=== PATIENT | male | born 1945 | race Caucasian/White ===

== ENCOUNTER 2017-11-16 23:32 | Inpatient (IN) | payer OTHER, MEDICARE ==
[~2017-11-16] VITALS: Ht 172.7 cm; Wt 93.0 kg
[2017-11-16 23:35] VITALS: BP 138/78; PULSE 67; RESP 18; TEMP 98.4; O2SAT 97
[2017-11-16 23:40] VITALS: O2SAT 99
[2017-11-16] MEDS ORDERED: SODIUM CHLOR 0.9% 1000 ML INJ 1,000 ML IV ONE (23:43)
[2017-11-16 23:50] LABS: AUTOMATED NEUTROPHIL # 9.1 TH/MM3 (1.8-7.7); BASOPHIL # 0.1 TH/MM3 (0-0.2); BASOPHIL % 0.7 % (0.0-2.0); EOSINOPHIL # 0.2 TH/MM3 (0-0.4); EOSINOPHIL % 1.8 % (0.0-4.0); HEMATOCRIT 40.6 % (39.0-51.0); HEMOGLOBIN 14.2 GM/DL (13.0-17.0); LYMPH % 24.8 % (9.0-44.0); LYMPHOCYTE # 3.3 TH/MM3 (1.0-4.8); MEAN CELL VOLUME 92.2 FL (80.0-100.0); MEAN CORPUSCULAR HEMOGLOBIN 32.4 PG (27.0-34.0); MEAN CORPUSCULAR HGB CONC 35.1 % (32.0-36.0); MEAN PLATELET VOLUME 9.6 FL (7.0-11.0); MONOCYTE # 0.8 TH/MM3 (0-0.9); NEUT % 66.7 % (16.0-70.0); PLATELET COUNT 183 TH/MM3 (150-450); RED CELL DISTRIBUTION WIDTH 11.5 % (11.6-17.2); WHITE BLOOD COUNT 13.5 TH/MM3 (4.0-11.0)
--- NOTE | 2017-11-16 23:53 | RADRPT ---
EXAM DATE/TIME: 11/16/2017 23:34 [facility] COMPARISON: No previous studies available for comparison. INDICATIONS : Stroke Alert; left sided weakness and facial droop. RADIATION DOSE: 64.27 CTDIvol (mGy) MEDICAL HISTORY : Non-responsive. SURGICAL HISTORY : Non-responsive. ENCOUNTER: Initial ACUITY: 1 day PAIN SCALE: Non-responsive LOCATION: cranial TECHNIQUE: Multiple contiguous axial images were obtained of the head. Using automated exposure control and adj ustment of the mA and/or kV according to patient size, radiation dose was kept as low as reasonably a chievable to obtain optimal diagnostic quality images. DICOM format image data is available electro nically for review and comparison. FINDINGS: There is mild volume loss. There is encephalomalacia in the left parietal region having the appearanc e of a remote infarct. There are no signs of acute infarction, intracranial hemorrhage, or mass. CONCLUSION: Mild atrophy and remote left parietal infarct. This report was called to Dr. Hall at 11:51 PM on 2017. Jarvis Dewitt MD on November 16, 2017 at 23:50 Board Certified Radiologist. This report was verified electronically.
[2017-11-16 23:55] LABS: CHLORIDE 99 MEQ/L (98-107); SODIUM (NA) 133 MEQ/L (136-145)
[2017-11-16 23:57] LABS: CALCIUM 8.4 MG/DL (8.5-10.1)
[2017-11-16 23:58] LABS: BICARBONATE 28.9 MEQ/L (21.0-32.0); BLOOD UREA NITROGEN 19 MG/DL (7-18); GLUCOSE,RANDOM 263 MG/DL (74-106)
[2017-11-16] MEDS ORDERED: PROSTATE MED PO (23:59)
[2017-11-17] VITALS (18 sets, daily range): BP systolic 104–153; BP diastolic 55–90; PULSE 56–76; RESP 16–23; TEMP 97.6–98.8; O2SAT 95–99
[2017-11-17] LABS: INTERNATIONAL NORMALIZED RATIO 0.9 RATIO; PROTHROMBIN TIME - PATIENT 9.6 SEC (9.8-11.6)
[2017-11-17] MEDS ORDERED: ALTEPLASE DRIP 78.5 MG in SYRINGE/BAG 1 EA IV ONE
[2017-11-17] MEDS ORDERED: SODIUM CHLORIDE 0.9% 50 ML BAG IVF ONE
[2017-11-17] MEDS ORDERED: MISCELLANEOUS NURSING INFORMATION XX PRN
[2017-11-17] MEDS ORDERED: ALTEPLASE BOLUS 9 MG/9 ML SYR IV ONE
[2017-11-17 00:01] LABS: GLOMERULAR FILTRATION RATE 66 ML/MIN (>89)
[2017-11-17 00:06] LABS: TROPONIN I LESS THAN 0.02 NG/ML (0.02-0.05)
--- NOTE | 2017-11-17 00:20 | RADRPT ---
EXAM DATE/TIME: 11/16/2017 23:53 [facility] COMPARISON: No previous studies available for comparison. INDICATIONS : Stroke alert; left sided weakness, facial droop. IV CONTRAST: 75 cc Omnipaque 350 (iohexol) IV ; Cumulative dose for multiple exams. RADIATION DOSE: 42.25 CTDIvol (mGy) MEDICAL HISTORY : Non-responsive. SURGICAL HISTORY : Non-responsive. ENCOUNTER: Initial ACUITY: 1 day PAIN SCALE: Non-responsive LOCATION: cranial TECHNIQUE: Volumetric scanning was performed using a multi-row detector CT scanner. The data was post processed with a variety of visualization algorithms including full volume maximum intensity projection, multi -planar sliding thin slab reformation, curved planar reformation, and surface rendering techniques. Using automated exposure control and adjustment of the mA and/or kV according to patient size, radiat ion dose was kept as low as reasonably achievable to obtain optimal diagnostic quality images. DICO M format image data is available electronically for review and comparison. FINDINGS: There is abrupt cutoff of the contrast column within the right middle cerebral artery M1 segment seen best on axial image series 300 consistent with MCA occlusion. The anterior cerebral arteries, editorial intern al carotid arteries, basilar, vertebral arteries and left middle cerebral artery are patent. or igin of left posterior cerebral artery is noted. There is enlargement of the thyroid gland with multiple hypodense thyroid nodules identified incomple tely evaluated on this study. The left lobe demonstrates slight mass effect on the trachea. CONCLUSION: Right MCA occlusion. The findings were discussed with Dr. Samaniego, neurologist storage consultant at 12:17 AM on F 2017. Jarvis Dewitt MD on November 17, 2017 at 0:13 Board Certified Radiologist. This report was verified electronically.
--- NOTE | 2017-11-17 00:21 | PD ---
HPI Chief Complaint: Stroke Alert Time Seen by Provider: 23:43 Travel History International Travel<30 days: No Contact w/Intl Traveler<30days: No Traveled to known affect area: No History of Present Illness HPI 72-year-old male presents to the emergency department from home by EMS transport where reportedly 11 PM the noted for the first time sudden change in mentation speech and facial droop and shortly thereafter left upper extremity and left lower extremity weakness. was at the patient's side when he became weak on the left side and she assisted him to the floor and there was no injury. No seizure activity was witnessed. Patient since arrival to EMS continues to have mild confusion and some slurring of speech left facial droop and left upper extremity lower extremity weakness with no use of the left upper extremity and minimal use of the left lower extremity and rightward gaze. Patient with history of prostate issues on prostate medication takes no blood thinning medications has no other medical issues has had no surgeries no allergies and is visiting here from out of state. is currently not at bedside but is reportedly in route to the hospital. Patient was found to be normotensive en route with sinus rhythm on EMS EKG and monitored in sinus rhythm with room air O2 saturations 97%. Upon arrival to the emergency department blood pressure is 147/93 heart rate 70 monitored in sinus rhythm with regular heart sounds O2 saturation 97% on room air EMS reports blood sugar was 200. PFSH Past Medical History Narrative Medical Prostate issues; no surgery; alcohol use; nursing notes reviewed Social History Tobacco Use: No Allergies-Medications (Allergen,Severity, Reaction): Coded Allergies: No Known Allergies (Unverified , 11/17/17) Reported Meds & Prescriptions Reported Meds & Active Scripts Active Reported [Prostate Med] PO DAILY Review of Systems ROS Limitations: Speech Impaired (), Poor Historian, Other: Except as stated in HPI: all other systems reviewed are Neg General / Constitutional: No: Fever HENT: No: Headaches Cardiovascular: No: Chest Pain or Discomfort Gastrointestinal: No: Vomiting Musculoskeletal: No: Pain Neurologic: Positive: Weakness, Focal Abnormalities (Facial droop), Change in Mentation, Slurred Speech Hematologic/Lymphatic: No: Easy Bruising Physical Exam Narrative GENERAL: Well-developed well-nourished male in no acute respiratory distress; GCS 14 SKIN: Warm and dry. HEAD: Atraumatic. Normocephalic. EYES: Pupils equal and round. Extraocular muscles intact but primarily rightward gaze. No scleral icterus. No injection or drainage. ENT: No nasal bleeding or discharge. Mucous membranes pink and moist. NECK: Trachea midline. No JVD. CARDIOVASCULAR: Regular rate and rhythm. RESPIRATORY: No accessory muscle use. Clear to auscultation. Breath sounds equal bilaterally. GASTROINTESTINAL: Abdomen soft, non-tender, nondistended. Hepatic and splenic margins not palpable. MUSCULOSKELETAL: Extremities without clubbing, cyanosis, or edema. No obvious deformities. NEUROLOGICAL: Awake but mildly drowsy. No obvious cranial nerve deficits except left facial droop. Motor grossly within normal limits right upper extremity right lower extremity; left upper extremity flaccid left lower extremity minimal movement of extremity with attempt of left knee flexion and ankle flexion. Five out of 5 muscle strength in the right arm and leg; 1/5 RUE,3/ 5LLE. Mild slurring of speech able to say his name and date of . Data Data Last Documented VS Vital Signs Date Time Temp Pulse Resp B/P (MAP) Pulse Ox O2 Delivery O2 Flow Rate FiO2 11/17/17 00:30 68 18 134/84 (101) 98 11/17/17 00:15 Nasal Cannula 2.00 11/16/17 23:35 98.4 Orders Orders Cath For Specimen (11/16/17 23:43) Neuro Checks Q2HX12,Q4H (11/16/17 23:43) Nursing Bedside Swallow Assess .ONCE (11/16/17 23:43) Activity Bed Rest (11/16/17 23:43) Prothrombin Time / Inr (Pt) (11/16/17 23:43) Act Partial Throm Time (Ptt) (11/16/17 23:43) Complete Blood Count With Diff (11/16/17 23:43) Basic Metabolic Panel (Bmp) (11/16/17 23:43) Fibrinogen (11/16/17 23:43) Creatine Kinase (Cpk) (11/16/17 23:43) Troponin I (11/16/17 23:43) Ua Includes Microscopic (11/16/17 23:43) Drug Screen, Random Urine (11/16/17 23:43) Type And Screen (11/16/17 23:43) Ct Brain W/O Iv Contrast(Rout) (11/16/17 ) Cta Brain W Iv Contrast W 3d (11/16/17 23:43) Cta Neck W Iv Contrast W 3d (11/16/17 23:43) Electrocardiogram (11/16/17 ) Sodium Chlor 0.9% 1000 Ml Inj (Ns 1000 M (11/16/17 23:43) Blood Glucose (11/16/17 23:43) Ecg Monitoring (11/16/17 23:43) Iv Access Insert/Monitor (11/16/17 23:43) NPO (11/16/17 23:43) Oximetry (11/16/17 23:43) Resp Oxygen Nc Stroke (11/16/17 ) ^ Call Pharmacy (11/16/17 23:56) Nih Stroke Scale - Nihss .ONCE (11/16/17 23:56) Urinary Catheter Insert/Apply (11/16/17 23:56) Anticoagulant Alert (11/16/17 23:56) ^ Post Infusion Restrictions (11/16/17 23:56) ^ Medication Alert (11/16/17 23:56) Vital Signs (Adult) .As directed (11/16/17 23:56) Notify Dr: Blood Pressure (11/16/17 23:56) ^ Medication Alert (11/16/17 23:56) Alteplase Bolus (Activase Bolus) (11/17/17 00:00) Alteplase Drip (Activase Drip) (11/17/17 00:00) Sodium Chloride 0.9% Inj (Ns Inj) (11/17/17 00:00) Misc Nursing Information (11/17/17 00:00) Resp Oxygen Nc Stroke (11/16/17 ) Admit Order (Ed Use Only) (11/17/17 ) Fittings Finisher / Telemetry LUCÍA.Q8H (11/17/17 00:35) Activity Bed Rest (11/17/17 00:35) Notify Dr: Other (11/17/17 00:35) Consult Neurology (11/17/17 00:35) Labs Laboratory Tests Test 11/16/17 23:15 11/16/17 23:40 Free Thyroxine 1.00 NG/DL Free Triiodothyronine (T3) pg/dL 2.52 PG/ML Thyroid Stimulating Hormone 3rd Gen 5.620 uIU/ML White Blood Count 13.5 TH/MM3 Red Blood Count 4.40 MIL/MM3 Hemoglobin 14.2 GM/DL Hematocrit 40.6 % Mean Corpuscular Volume 92.2 FL Mean Corpuscular Hemoglobin 32.4 PG Mean Corpuscular Hemoglobin Concent 35.1 % Red Cell Distribution Width 11.5 % Platelet Count 183 TH/MM3 Mean Platelet Volume 9.6 FL Neutrophils (%) (Auto) 66.7 % Lymphocytes (%) (Auto) 24.8 % Monocytes (%) (Auto) 6.0 % Eosinophils (%) (Auto) 1.8 % Basophils (%) (Auto) 0.7 % Neutrophils # (Auto) 9.1 TH/MM3 Lymphocytes # (Auto) 3.3 TH/MM3 Monocytes # (Auto) 0.8 TH/MM3 Eosinophils # (Auto) 0.2 TH/MM3 Basophils # (Auto) 0.1 TH/MM3 CBC Comment DIFF FINAL Differential Comment Prothrombin Time 9.6 SEC Prothromb Time International Ratio 0.9 RATIO Activated Partial Thromboplast Time 21.7 SEC Fibrinogen 277 mg/dL Blood Urea Nitrogen 19 MG/DL Creatinine 1.10 MG/DL Random Glucose 263 MG/DL Calcium Level 8.4 MG/DL Sodium Level 133 MEQ/L Potassium Level 3.9 MEQ/L Chloride Level 99 MEQ/L Carbon Dioxide Level 28.9 MEQ/L Anion Gap 5 MEQ/L Estimat Glomerular Filtration Rate 66 ML/MIN Hemoglobin A1c 9.6 % Total Creatine Kinase 97 U/L Troponin I LESS THAN 0.02 NG/ML Triglycerides Level 581 MG/DL Cholesterol Level 246 MG/DL LDL Cholesterol MG/DL HDL Cholesterol 32.5 MG/DL Cholesterol/HDL Ratio 7.56 RATIO [facility] Medical Decision Making Medical Screen Exam Complete: Yes Emergency Medical Condition: Yes Medical Record Reviewed: Yes Interpretation(s) CBC & BMP Diagram 11/16/17 23:40 Calcium Level 8.4 L EKG normal sinus rhythm rate [address] elevation or injury pattern or ectopy noted artifact is present at baseline Last Impressions Neck CTA 11/16/17 2542 Signed Impressions: Service Date/Time: Thursday, November 16, 2017 23:53 - CONCLUSION: 1. Multinodular thyroid not mentioned above with thyroid enlargement, left greater than right and mild mass effect on the trachea. 2. 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 3. No evidence for hemodynamically significant stenosis of either internal carotid artery. 4. 5. The findings were discussed with Dr. Samaniego at 12: 6. 17 AM on November 17, 2017. Jarvis Dewitt MD Head CTA 11/16/17 2343 Signed Impressions: Service Date/Time: Thursday, November 16, 2017 23:53 - CONCLUSION: Right MCA occlusion. The findings were discussed with Dr. Samaniego, neurologist automation qa lead at 12:17 AM on November 17, 2017. Jarvis Dewitt MD Head CT 11/16/17 0000 Signed Impressions: Service Date/Time: Thursday, November 16, 2017 23:34 - CONCLUSION: Mild atrophy and remote left parietal infarct. This report was called to Dr. Hall at 11:51 PM on November 16, 2017. Jarvis Dewitt MD CBC & BMP Diagram 11/16/17 23:40 Calcium Level 8.4 L Vital Signs Date Time Temp Pulse Resp B/P (MAP) Pulse Ox O2 Delivery O2 Flow Rate FiO2 11/17/17 00:30 68 18 134/84 (101) 98 11/17/17 00:15 67 18 132/80 (97) 98 Nasal Cannula 2.00 11/17/17 00:00 66 18 136/80 (98) 97 Room Air 11/16/17 23:40 99 2.00 11/16/17 23:40 99 Nasal Cannula 2.00 11/16/17 23:35 98.4 67 18 138/78 (98) 97 11/16/17 23:35 67 97 Room Air 11/16/17 23:35 18 97 Room Air Differential Diagnosis Stroke alert, ICH, TIA Narrative Course Upon arrival to the emergency department taken directly on EMS stretcher to CT scanner transferred to CT table; NIHSS: 11; stat non contrast CT Brain performed neurologist notified prelimnary read by me no bleed rad reading pending and will notifiy Dr Coyle as soon as report resulted by radiologist; CTA brain and neck ordered to proceed stat At 11:[address] brain noncontrast reveals remote left parietal infarct no acute findings no bleed this was called to me by radiologist Dr. Dewitt and was conveyed to neurologist Dr. Samaniego who agrees patient should be offered TPA at 11 :59 PM patient was offered TPA and stated no that he does not want the medication and at 12:09 AM again was discussed in detail risks benefits of receiving versus not receiving TPA and again when offered TPA patient said no is at bedside and is talking to patient as she would like him to receive TPA. @ 12:15 patient reports he is at home @ 12:[address] Coyle reports MCA occlusion --is aware of patient and making decision causing delay in administration of the medication @ 12:21 reports she is making the decision to intervene for the patient due to his confusion and receptive v expressive aphasia; tPA ordered to be administered now signing consent aware of risks and benefit of medication and aware of plan to transfer to [facility] to [facility] and for interventional radiologist @ 12:[address] Coyle per Dr Dewitt (R) MCA M1 segment occlusion --- candidate for IR call placed to Dr Dewitt/Dr Coyle @ 12:41 Dr Davidson has spoken with Dr Coyle; call to me --to be notified upon EMS arrival; stat call placed to EMS and to [facility] ED MD @ 01:19AM EMS is here to transport ED to [facility] ED to IR; Dr Davidson notified ) EMS here @ 01:24 AM patient has left for [facility] Physician Communication Physician Communication discussed with Dr Coyle, discussed with Dr Dewitt; discussed with Dr Coburn; discussed with Dr Davidson; discussed with Dr Oliveira Diagnosis Primary Impression: Acute right MCA stroke Admitting Information Admitting Physician Requests: Admit Nury Hall MD Nov 17, 2017 00:21
--- NOTE | 2017-11-17 00:27 | RADRPT ---
EXAM DATE/TIME: 11/16/2017 23:53 [facility] COMPARISON: CTA BRAIN W 3D RECON, November 16, 2017, 23:53. CT BRAIN W/O CONTRAST, November 16, 2017, 23:34. INDICATIONS : Stroke alert; left sided weakness, facial droop. IV CONTRAST: 75 cc Omnipaque 350 (iohexol) IV ; Cumulative dose for multiple exams. RADIATION DOSE: 42.25 CTDIvol (mGy) ; Combined studies MEDICAL HISTORY : Non-responsive. SURGICAL HISTORY : Non-responsive. ENCOUNTER: Initial ACUITY: 1 day PAIN SCALE: Non-responsive LOCATION: cranial Elevated flow velocities and ICA/CCA ratios have been found to correlate with increased degrees of vessel stenosis, calculated as percentage of diameter relative to a normal segment of distal ICA/CCA. TECHNIQUE: Volumetric scanning was performed using a multirow detector CT scanner. The data was post processed with a variety of visualization algorithms including full-volume maximum intensity projection, multip lanar sliding thin-slab reformation, curved-planar reformation, and surface-rendering techniques. Us ing automated exposure control and adjustment of the mA and/or kV according to patient size, radiatio n dose was kept as low as reasonably achievable to obtain optimal diagnostic quality images. DICOM f ormat image data is available electronically for review and comparison. FINDINGS: AORTIC ARCH: There is a three-vessel origin of the great vessels from the aorta. No evidence of ostial narrowing. RIGHT CAROTID: The common carotid artery is intact. The carotid bulb has a normal configuration without ulceration o r narrowing. The internal carotid artery lumen is smooth without stenosis. The external carotid van ry is intact. Mild calcific plaquing at the carotid bulb. LEFT CAROTID: The common carotid artery is intact. The carotid bulb has a normal configuration without ulceration or narrowing. The internal carotid artery lumen is smooth without stenosis. The external carotid ar lauren is intact. Mild calcific plaquing at the carotid bulb. VERTEBRALS: The vertebral arteries have a symmetric diameter. No stenotic lesions are seen. The origin of the le ft vertebral artery is obscured by dense contrast opacification of the adjacent veins. CONCLUSION: 1. Multinodular thyroid not mentioned above with thyroid enlargement, left greater than right and mil d mass effect on the trachea. 2. 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 3. No evidence for hemodynamically significant stenosis of either internal carotid artery. 4. 5. The findings were discussed with Dr. Samaniego at 12: 6. 17 AM on November 17, 2017. Jarvis Dewitt MD on November 17, 2017 at 0:22 Board Certified Radiologist. This report was verified electronically.
[2017-11-17] MEDS ORDERED: IOHEXOL 350 MG/ML 10 ML VIAL (for RAD DIAG) IVCONTRAST ONE (00:59)
[2017-11-17 01:03] LABS: BILIRUBIN, URINE NEG (NEG); BLOOD, URINE NEG (NEG); GLUCOSE,URINE 1000 OR GREATER mg/dL (NEG); KETONE, URINE TRACE mg/dL (NEG); NITRITE,URINE NEG (NEG); URINE LEUKOCYTE ESTERASE NEG (NEG)
[2017-11-17 01:13] LABS: RBC, URINE 0-3 /hpf (0-3); SQUAMOUS EPITHELIAL CELL URINE 0-5 /hpf (0-5); URINE COLOR YELLOW (YELLW/STRAW); WBC, URINE 0-2 /hpf (0-5)
[2017-11-17] MEDS ORDERED: MIDAZOLAM HCL 2 MG/2 ML VIAL ONE (02:01)
[2017-11-17] MEDS ORDERED: HEPARIN SODIUM - IV 10,000 UNITS/10 ML VIAL ONE (02:23)
[2017-11-17] MEDS ORDERED: VERAPAMIL HCL 5 MG/2 ML VIAL ONE (02:23)
[2017-11-17] MEDS ORDERED: NITROGLYCERIN 2% OINT 1 GM PACKET ONE (02:23)
--- NOTE | 2017-11-17 03:23 | PD.RAD ---
Post Procedure Progress Note Pre Procedure Diagnosis: (1) Acute right MCA stroke Post Procedure Diagnosis: (1) Acute right MCA stroke Procedure Date: Nov 17, 2017 Supervising Radiologist: Jayce Watt Proceduralist/Assist: Sukumar Kim RT(R), RT Yun(R) Anesthesia: Local, Analgesia, Conscious Sedation Plan of Activity Patient to Unit: Critical Care Patient Condition: Fair See PACS Report for procedural detail/treatment Vascular-Arterial Procedure Procedure 1 Procedure Site: Cerebral (Right MCA) Procedure(s): Angiogram, Embolectomy Access Access Site(s): Right Femoral Artery Closure Site(s): Right vascular closure device (PerClose) Findings: Occlusion M1 segment on the right. Successful embolectomy with 2 passes of Penumbra 068 catheter Jayce Watt MD Nov 17, 2017 03:23
[2017-11-17] MEDS ORDERED: IODIXANOL 320 MG/ML 50 ML VIAL (for RAD SPEC) I-ARTERIAL ONE (03:34)
[2017-11-17] MEDS ORDERED: LACTULOSE SYRUP 20 GM/30 ML CUP PO PRN (04:30)
[2017-11-17] MEDS ORDERED: SODIUM CHLORIDE 0.9% FLUSH 10 ML FLUSH IV FLUSH PRN (04:30)
[2017-11-17] MEDS ORDERED: MAGNESIUM HYDROXIDE SUSP 30 ML CUP PO PRN (04:30)
[2017-11-17] MEDS: SODIUM CHLOR 0.9% 1000 ML INJ 1,000 ML IV SCH ×2 (04:30→17:52)
[2017-11-17] MEDS ORDERED: MISCELLANEOUS NURSING INFORMATION XX SCH (04:30)
[2017-11-17] MEDS ORDERED: RESP: ALBUTEROL 2.5 MG/3 ML NEB (PRN) INH (04:30)
[2017-11-17] MEDS ORDERED: BISACODYL 10 MG SUPP RECTAL PRN (04:30)
[2017-11-17] MEDS ORDERED: ONDANSETRON HCL 4 MG/2 ML VIAL IV PUSH PRN (04:30)
[2017-11-17] MEDS ORDERED: GLUCAGON 1 MG/ML VIAL OTHER PRN ×2 (04:30)
[2017-11-17] MEDS ORDERED: CHLORHEXIDINE GLUCONATE 2 % 1 PACK (2 CLOTHS) TOP PRN (04:30)
[2017-11-17] MEDS ORDERED: hydrALAZINE HCL 20 MG/ML VIAL IV PUSH PRN (04:30)
[2017-11-17] MEDS ORDERED: DEXTROSE 50% IN WATER 50 ML VIAL(D50) IV PUSH PRN (04:30)
[2017-11-17] MEDS ORDERED: LABETALOL HCL 100 MG/20 ML VIAL IV PUSH PRN (04:30)
[2017-11-17] MEDS ORDERED: SENNOSIDES 8.6 MG TAB PO PRN (04:30)
--- NOTE | 2017-11-17 04:45 | HHI.HP ---
HPI Service Critical Care Medicine Primary Care Physician Non-Staff Admission Diagnosis (R) MCA CVA Diagnosis: (1) Acute right MCA stroke Diagnosis: Principal (2) Received intravenous tissue plasminogen activator (tPA) in emergency department Diagnosis: Principal Travel History International Travel<30 Days: No Contact w/Intl Traveler <30 Da: No Traveled to Known Affected Are: No History of Present Illness 72 yo R hand dominant WM with PMH of obesity, BPH, and limited prior contact with medical care who presents to [facility] with confusion, aphasia, L hemiparesis. His estimates that symptoms occurred at 22:50-23:00 on . She states he was ambulating around the house and was "wandering" and "seemed confused". His contacted patient's brother who was staying in the house across the street and then he arrived and suggested she call [facility]. He had no noted seizure activity. He is not on anticoagulants or antiplatelet therapy. BP on arrival was 138/78. CT brain demonstrated atrophy and remote left parietal infarct. There was no acute infarct/hemorrhage/mass. Patient initially refused TPA however encouraged him to proceed with it. He seemed confused and there was question of whether he was capacitated for medical decision making so ultimately consented to TPA which was administered.. CTA brain demonstrated occlusion of M1 segment of R MCA. CTA carotids showed no significant stenosis. He was transferred from [facility] to [facility] where he underwent embolectomy by Dr. Watt. Review of Systems ROS Limitations: Clinical Condition Past Family Social History Allergies: Coded Allergies: No Known Allergies (Unverified , 11/17/17) Past Medical History Obesity BPH Past Surgical History Tonsillectomy during childhood Reported Medications His reports that he is "on something for his prostate". She is not certain whether this is prescription or vduk-zki-oyjszpe/supplement. Family History No reported family history of stroke. 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 He is visiting from [facility] Physical Exam Vital Signs Vital Signs Date Time Temp Pulse Resp B/P (MAP) Pulse Ox O2 Delivery O2 Flow Rate FiO2 11/17/17 01:30 72 18 98 Nasal Cannula 2.00 11/17/17 01:25 74 18 142/82 (102) 98 11/17/17 01:13 72 18 138/82 (100) 97 11/17/17 00:45 69 18 141/84 (103) 98 11/17/17 00:30 68 18 134/84 (101) 98 11/17/17 00:15 67 18 132/80 (97) 98 Nasal Cannula 2.00 11/17/17 00:00 66 18 136/80 (98) 97 Room Air 11/16/17 23:40 99 2.00 11/16/17 23:40 99 Nasal Cannula 2.00 11/16/17 23:35 98.4 67 18 138/78 (98) 97 11/16/17 23:35 67 97 Room Air 11/16/17 23:35 18 97 Room Air Physical Exam GENERAL: Well-nourished, well-developed elderly male who is laying flat in ISC bed. SKIN: Warm and dry. HEAD: Atraumatic. Normocephalic. EYES: Pupils equal and round, 3 mm and reactive bilaterally.. No scleral icterus. No injection or drainage. ENT: No nasal bleeding or discharge. Mucous membranes dry NECK: Trachea midline. No JVD. CARDIOVASCULAR: Regular rate and rhythm, sinus rhythm on the monitor. No murmur rub or gallop appreciated. RESPIRATORY: Breathing comfortably with no accessory muscle use. Clear to auscultation. On 2 L nasal cannula. GASTROINTESTINAL: Abdomen soft, non-tender, nondistended bowel sounds present. MUSCULOSKELETAL: Extremities without clubbing, cyanosis, or edema. No obvious deformities. NEUROLOGICAL: Sleepy but will arouse to voice. Dysarthric speech. Oriented to self, hospital, year. Left-sided gaze deficit. Left facial droop. Strength 5 out of 5 right upper extremity and right lower extremity. 1/5 L biceps otherwise flaccid. 1/5 L hip flexion and wiggles L toes slightly. 0/5 L ankle dorsi/plantar flexion. Babinski upgoing on left. Decreased sensation soft touch to left upper and left lower extremity. Laboratory Laboratory Tests Test 11/16/17 23:40 11/17/17 00:47 White Blood Count 13.5 Red Blood Count 4.40 Hemoglobin 14.2 Hematocrit 40.6 Mean Corpuscular Volume 92.2 Mean Corpuscular Hemoglobin 32.4 Mean Corpuscular Hemoglobin Concent 35.1 Red Cell Distribution Width 11.5 Platelet Count 183 Mean Platelet Volume 9.6 Neutrophils (%) (Auto) 66.7 Lymphocytes (%) (Auto) 24.8 Monocytes (%) (Auto) 6.0 Eosinophils (%) (Auto) 1.8 Basophils (%) (Auto) 0.7 Neutrophils # (Auto) 9.1 Lymphocytes # (Auto) 3.3 Monocytes # (Auto) 0.8 Eosinophils # (Auto) 0.2 Basophils # (Auto) 0.1 CBC Comment DIFF FINAL Differential Comment Prothrombin Time 9.6 Prothromb Time International Ratio 0.9 Activated Partial Thromboplast Time 21.7 Fibrinogen 277 Blood Urea Nitrogen 19 Creatinine 1.10 Random Glucose 263 Calcium Level 8.4 Sodium Level 133 Potassium Level 3.9 Chloride Level 99 Carbon Dioxide Level 28.9 Anion Gap 5 Estimat Glomerular Filtration Rate 66 Total Creatine Kinase 97 Troponin I LESS THAN 0.02 Urine Color YELLOW Urine Turbidity CLEAR Urine pH 6.0 Urine Specific [place] GREATER THAN 1.035 Urine Protein NEG Urine Glucose (UA) 1000 OR GREATER Urine Ketones TRACE Urine Occult Blood NEG Urine Nitrite NEG Urine Bilirubin NEG Urine Leukocyte Esterase NEG Urine RBC 0-3 Urine WBC 0-2 Urine Squamous Epithelial Cells 0-5 Urine Bacteria NONE Urine Opiates Screen NEG Urine Barbiturates Screen NEG Urine Amphetamines Screen NEG Urine Benzodiazepines Screen NEG Urine Cocaine Screen NEG Urine Cannabinoids Screen NEG Result Diagram: 11/16/17233911/16/172339 Caprini VTE Risk Assessment Caprini VTE Risk Assessment: Mod/High Risk (score >= 2) VTE Pharm Contraindication: Documented Caprini Risk Assessment Model Point Value = 1 Point Value = 2 Point Value = 3 Point Value = 5 Age 41-60 Minor surgery BMI > 25 kg/m2 Swollen legs Varicose veins or History of unexplained or recurrent spontaneous Oral contraceptives or hormone replacement Sepsis (< 1 month) Serious lung disease, including pneumonia (< 1 month) Abnormal pulmonary function Acute myocardial infarction Congestive heart failure (< 1 month) History of inflammatory bowel disease Medical patient at bed rest Age 61-74 Arthroscopic surgery Major open surgery (> 45 min) Laparoscopic surgery (> 45 min) Malignancy Confined to bed (> 72 hours) Immobilizing plaster cast Central venous access Age >= 75 History of VTE Family history of VTE Factor V Leiden Prothrombin [id number] Lupus anticoagulant Anticardiolipin antibodies Elevated serum homocysteine Heparin-induced thrombocytopenia Other congenital or acquired thrombophilia Stroke (< 1 month) Elective arthroplasty Hip, pelvis, or leg fracture Acute spinal cord injury (< 1 month) Prophylaxis Regimen Total Risk Factor Score Risk Level Prophylaxis Regimen 0-1 Low Early ambulation 2 Moderate Order ONE of the following: *Sequential Compression Device (SCD) *Heparin 5000 units SQ BID 3-4 Higher Order ONE of the following medications: *Heparin 5000 units SQ TID *Enoxaparin/Lovenox 40 mg SQ daily (WT < 150 kg, CrCl > 30 mL/min) *Enoxaparin/Lovenox 30 mg SQ daily (WT < 150 kg, CrCl > 10-29 mL/min) *Enoxaparin/Lovenox 30 mg SQ BID (WT < 150 kg, CrCl > 30 mL/min) AND/OR *Sequential Compression Device (SCD) 5 or more Highest Order ONE of the following medications: *Heparin 5000 units SQ TID (Preferred with Epidurals) *Enoxaparin/Lovenox 40 mg SQ daily (WT < 150 kg, CrCl > 30 mL/min) *Enoxaparin/Lovenox 30 mg SQ daily (WT < 150 kg, CrCl > 10-29 mL/min) *Enoxaparin/Lovenox 30 mg SQ BID (WT < 150 kg, CrCl > 30 mL/min) AND *Sequential Compression Device (SCD) Assessment and Plan Problem List: (1) Obesity (BMI 30-39.9) ICD Code: E66.9 - Obesity, unspecified Status: Chronic (2) Hyperglycemia ICD Code: R73.9 - Hyperglycemia, unspecified Status: Acute (3) Multinodular thyroid ICD Code: E04.2 - Nontoxic multinodular goiter Status: Chronic (4) Leukocytosis ICD Code: D72.829 - Elevated white blood cell count, unspecified Status: Acute (5) BPH (benign prostatic hyperplasia) ICD Code: N40.0 - Benign prostatic hyperplasia without lower urinary tract symptoms Status: Chronic (6) Acute right MCA stroke ICD Code: I63.511 - Cerebral infarction due to unspecified occlusion or stenosis of right middle cerebral artery Status: Acute (7) Received intravenous tissue plasminogen activator (tPA) in emergency department ICD Code: Z92.82 - Status post administration of tPA (rtPA) in a different facility within the last 24 hours prior to admission to current facility (8) Hyponatremia ICD Code: E87.1 - Hypo-osmolality and hyponatremia Assessment and Plan NEURO: Acute ischemic stroke right MCA stroke Received TPA at midnight 11/17. Status post right M1 embolectomy by Dr. Watt 11/17, (2 passes of Penumbra catheter) Antihypertensive management to maintain systolic blood pressure less than 180, diastolic blood pressure less than 105. Avoid anticoagulant or antiplatelet therapy for 24 hours Monitor telemetry. Follow-up 2-D echo, lipids, hemoglobin A1c CTA carotids negative for significant carotid occlusion. Speech therapy to evaluate swallow. PT/OT Neurology consult, Dr. Samaniego. RESP: Nasal cannula tolerate to maintain sat greater than 94% Will monitor for evidence of airway protection. Intubated if needed. Noted mild mass effect on the trachea due to thyroid goiter on CT scan. CV: Monitor hemodynamics Labetalol/hydralazine as needed for systolic blood pressure greater than 180, diastolic blood pressure greater than 105 Troponin negative GI: Obesity NPO. Speech therapy to evaluate swallow Famotidine for stress ulcer prophylaxis. FEN/RENAL: BPH Jaimes is in place. UA was not remarkable for significant hematuria. Now urine is lightly blood-tinged. ID: Leukocytosis, likely reactive Monitor for signs and symptoms of infection. UA negative for markers of infection HEME: Follow-up CBC after 24 hours Not on antiplatelet or anticoagulant therapy. Received TPA at midnight 2315 ENDO: Multi-nodular goiter CTA neck showed multinodular thyroid, left greater than right with mild mass effect on the trachea. Obtain TSH, free T3, free T4. Obtain thyroid ultrasound Acute hyperglycemia No known history of diabetes mellitus. Obtain hemoglobin A1c On to bedside glucose every 6 hours and initiate low-dose insulin sliding scale as indicated. PROPH: SCDs for DVT prophylaxis. Avoid pharmacologic DVT prophylaxis for 24 hours following systemic TPA. Famotidine IV for stress ulcer prophylaxis. ACCESS: Peripheral IV providing adequate access at this time. FULL CODE Patient and his and brother were updated at bedside Level III H&P Anni Coburn MD Nov 17, 2017 04:45
[2017-11-17] MEDS ORDERED: ACETAMINOPHEN 650 MG SUPP RECTAL PRN (05:30)
[2017-11-17] MEDS: INSULIN ASPART SUPPLEMENTAL SCALE SQ SCH ×4 (06:30→23:38)
--- NOTE | 2017-11-17 07:39 | MB ---
cc: JACKY GUAJARDO M.D. DATE OF CONSULTATION November 17, 2017 He is 71 years old, seen in neurological consultation. Case discussed with multiple physicians in the middle of night. He came today to the [facility] Emergency Room with stroke symptoms. Apparently the symptoms developed around 11:00 p.m.. He was felt to be a candidate for t-PA which was eventually given and his imaging studies showed a right middle cerebral artery occlusion, M1 segment. He was treated with intervention with a successful embolectomy. EXAMINATION The exam this morning shows the patient to be asleep but awakened with stimulation, eyes mostly closed, some gaze preference to the right. He is grossly oriented, stated the date as being which was evidently yesterday. He knows the place and has awareness of some of his neurological symptoms. There was some left-sided neglect and there is a visual field impairment on the left side. When he opened the eyes, the left eye shows some relative ptosis in comparison to the right. The pupils were about the same size. There is a spastic hemiparesis with increased reflexes on the left and left plantar extensor response. Overall the left side is probably 3/5 with increased tone as discussed. IMAGING STUDIES A CT angio head and neck, discussed above in part. The CT angio neck showed no significant stenosis. The CT brain was unremarkable. A remote left parietal infarct is noted. WBC was 13.5, hemoglobin 14.2, platelets 183. Chemistry with the glucose being 263. Sodium 133. Toxicology negative. ASSESSMENT Acute ischemic stroke right middle cerebral artery distribution with her right MCA occlusion. The patient was given t-PA and subsequently went through intervention with a Penumbra catheter which is described by Dr. Watt as a successful procedure. PLAN 1. Though he has already scheduled follow-up CT brain for 24 hours post t-PA, I will see if we can obtain an MRI brain today. 2. He apparently did not take any aspirin or blood thinners at home. We will we will probably start antiplatelets after 24 hours of t-PA, checking lipid profile as well. 3. SCDs in place. 4. Check echo. 5. Continue all threat monitoring analyst which is not showing any atrial fibrillation thus far. 6. Start stroke rehab. Thank you for asking us to assist in his care. I will follow him with you. MD CONSTANTINO Guardado/RENETTA /7:02 AM /7:11 AM
[2017-11-17] MEDS: DOCUSATE SODIUM 50 MG/SENNA 8.6 MG TAB PO SCH ×2 (09:00→20:34)
[2017-11-17] MEDS: FAMOTIDINE 20 MG/2 ML VIAL IV PUSH SCH ×2 (09:00→21:21)
[2017-11-17] MEDS: SODIUM CHLORIDE 0.9% FLUSH 10 ML FLUSH IV FLUSH SCH ×2 (09:00→21:00)
[2017-11-17] MEDS: FAMOTIDINE 20 MG TAB PO SCH ×2 (09:00→20:34)
--- NOTE | 2017-11-17 10:29 | RADRPT ---
EXAM DATE/TIME: 11/17/2017 09:50 [facility] COMPARISON: CTA BRAIN W 3D RECON, November 16, 2017, 23:53. CT BRAIN W/O CONTRAST, November 16, 2017, 23:34. INDICATIONS : CVA with thrombectomy last night. MEDICAL HISTORY : BPH SURGICAL HISTORY : Thrombectomy ENCOUNTER: Subsequent ACUITY: 1 day PAIN SCORE: 0/10 LOCATION: cranial TECHNIQUE: Multiplanar, multisequence MRI of the brain was performed without contrast. FINDINGS: A large infarction is seen involving the territory of the right MCA. This correlates to the findings seen on the CTA of the brain. There is restricted diffusion seen throughout the territory involving t he right frontal and temporal lobes. This extends into the mendez greater reaching the lateral wall o f the right lateral ventricle. There is blooming artifact seen on the gradient echo sequence scattere d throughout the territory in a heterogeneous fashion consistent with blood product. No midline shift . No significant mass effect. The remaining brain parenchyma is unremarkable.. CONCLUSION: 1. Acute infarction involving the right MCA territory which correlates to the finding on the CTA. No mass effect. There are scattered blood products throughout the infarct bed. Keshawn Dickson Jr., MD on November 17, 2017 at 10:21 Board Certified Radiologist. This report was verified electronically.
[2017-11-17 10:35] LABS: CHOLESTEROL 246 MG/DL (120-200); TRIGLYCERIDES 581 MG/DL (42-150)
[2017-11-17 10:36] LABS: CHOLESTEROL/ HDL RATIO 7.56 RATIO; HDL CHOLESTEROL 32.5 MG/DL (40.0-60.0)
--- NOTE | 2017-11-17 12:01 | RADRPT ---
EXAM DATE/TIME: 11/17/2017 11:21 [facility] COMPARISON: CTA CAROTID ARTERIES W 3D RECON, November 16, 2017, 23:53. INDICATIONS : Thyroid nodule. MEDICAL HISTORY : Thyroid nodule. SURGICAL HISTORY : None. ENCOUNTER: Initial ACUITY: 1 day PAIN SCORE: 0/10 LOCATION: Bilateral neck MEASUREMENTS: RIGHT LOBE: 3.7 x 2.5 x 2.9 cm LEFT LOBE: 4.0 x 2.2 x 2.9 cm FINDINGS: RIGHT LOBE: Dominant mixed echogenicity nodule in the midportion of the right lobe which measures 17 x 13 x 11 mm . LEFT LOBE: Dominant mixed echogenicity nodule along the lower aspect of the left lobe which measures 19 x 18 x 1 6 mm. ISTHMUS: Normal in size without focal abnormality. CONCLUSION: Bilateral thyroid nodules. If these lesions have not been previously evaluated, fine-needle aspiratio n biopsy would be recommended on an outpatient elective basis Collin Melissa MD on November 17, 2017 at 11:57 Board Certified Radiologist. This report was verified electronically.
[2017-11-17 13:33] LABS: FREE T3 2.52 PG/ML (2.18-3.98)
--- NOTE | 2017-11-17 14:36 | EKG ---
Date Performed: 11/17/2017 Time Performed: 00:13:27 PTAGE: 72 years EKG: Sinus rhythm NONSPECIFIC T-WAVE ABNORMALITY BORDERLINE ECG NO PREVIOUS TRACING DOCTOR: Eduardo Benavides Interpretating Date/Time 11/17/2017 14:30:59
--- NOTE | 2017-11-17 14:47 | EKG ---
Date Performed: 11/17/2017 Time Performed: 08:53:34 PTAGE: 72 years EKG: Sinus rhythm LOW QRS VOLTAGE IN EXTREMITY LEADS MODERATE T-WAVE ABNORMALITY, CONSIDER ANTEROLATERAL ISCHEMIA ABNO RMAL ECG PREVIOUS TRACING : 11/17/2017 00.13 Lateral T-wave changes are more prominent since the prior t racing, cannot rule out ischemia. DOCTOR: Eduardo Benavides Interpretating Date/Time 11/17/2017 14:38:41
--- NOTE | 2017-11-17 15:33 | ECHRPT ---
Indication: SOB CONCLUSIONS Mildly dilated left ventricle. Wall thickness is normal. The left ventricular systolic function is moderately reduced with an estimated ejection fraction in the range of 40-45%. [id number] mitral valve regurgitation. Mitral annular calcification is present. BP: / HR: Rhythm: MEASUREMENTS (Male / Female) Normal Values Technical Quality:Good 2D ECHO LV Diastolic Diameter PLAX 5.4 cm 4.2 - 5.9 / 3.9 - 5.3 cm LV Systolic Diameter PLAX 4.5 cm IVS Diastolic Thickness 1.1 cm 0.6 - 1.0 / 0.6 - 0.9 cm LVPW Diastolic Thickness 0.9 cm 0.6 - 1.0 / 0.6 - 0.9 cm LV Relative Wall Thickness 0.4 RV Internal Dim ED PLAX 2.1 cm LA Systolic Diameter LX 4.2 cm 3.0 - 4.0 / 2.7 - 3.8 cm DOPPLER Mitral E Point Velocity 110.0 cm/s Mitral A Point Velocity 32.9 cm/s Mitral E to A Ratio 3.3 TR Peak Velocity 210.0 cm/s TR Peak Gradient 17.6 mmHg FINDINGS LEFT VENTRICLE Mildly dilated left ventricle. Wall thickness is normal. The left ventricular systolic function is moderately reduced with an estimated ejection fraction in the range of 40-45%. RIGHT VENTRICLE Normal right ventricular size and systolic function. LEFT ATRIUM The left atrial size is normal. RIGHT ATRIUM The right atrial size is normal. ATRIAL SEPTUM Normal atrial septal thickness without atrial level shunting by limited color doppler interrogation. AORTA The aortic root and proximal ascending aorta are normal in size on limited imaging. MITRAL VALVE Mtty-rx-skuftzyb mitral valve regurgitation. Mitral annular calcification is present. AORTIC VALVE Trileaflet aortic valve. No aortic valve stenosis or regurgitation. TRICUSPID VALVE Structurally normal tricuspid valve. No tricuspid valve stenosis or regurgitation. PULMONARY VALVE The pulmonary valve is not well visualized. VESSELS The inferior vena cava is normal in size. PERICARDIUM No pericardial effusion. Dakota Tay MD, FACC, [facility] (Electronically Signed) Final Date:17 November 2017 15:32
[2017-11-17 16:18] LABS: HEMOGLOBIN A1C 9.6 % (4.3-6.0)
[2017-11-18] VITALS (14 sets, daily range): BP systolic 141–153; BP diastolic 68–93; PULSE 62–79; RESP 14–22; TEMP 98–98.7; O2SAT 94–100
--- NOTE | 2017-11-18 00:46 | RADRPT ---
EXAM DATE/TIME: 11/18/2017 00:20 [facility] COMPARISON: CT BRAIN W/O CONTRAST, November 16, 2017, 23:34. MRI BRAIN W/O CONTRAST, November 17, 2017, 9:50. INDICATIONS : 24 hour post TPA. RADIATION DOSE: 69.15 CTDIvol (mGy) MEDICAL HISTORY : Non-responsive. SURGICAL HISTORY : Intracranial throbectomy. ENCOUNTER: Subsequent ACUITY: 2 days PAIN SCALE: Non-responsive LOCATION: cranial TECHNIQUE: Multiple contiguous axial images were obtained of the head. Using automated exposure control and adj ustment of the mA and/or kV according to patient size, radiation dose was kept as low as reasonably a chievable to obtain optimal diagnostic quality images. DICOM format image data is available electro nically for review and comparison. FINDINGS: There is a large area of right MCA infarction not identified on the patient's prior CT examinati on from 2 days ago, however identified on the prior MRI which involves the MCA territory including th e temporal, part of the right frontal and parietal lobes in addition to basal ganglia with mild mass effect on the right lateral ventricle. There are areas of increased density involving the gyri and co uld potentially be normal gyri adjacent to significant lucency from evolving stroke, however slight d egree of subarachnoid hemorrhage within the right temporal lobe is difficult to exclude at this time. CONCLUSION: Evolving huge area of right MCA stroke and mild subarachnoid hemorrhage in right temporal lobe is dif ficult to exclude at this time, however it is only questionable. Lauryn Garsia MD on November 18, 2017 at 0:41 Board Certified Radiologist. This report was verified electronically.
[2017-11-18] MEDS: CHLORHEXIDINE GLUCONATE 2 % 1 PACK (2 CLOTHS) TOP SCH (04:00)
[2017-11-18 04:22] LABS: AUTOMATED NEUTROPHIL # 9.3 TH/MM3 (1.8-7.7); BASOPHIL # 0.1 TH/MM3 (0-0.2); BASOPHIL % 0.7 % (0.0-2.0); EOSINOPHIL # 0.1 TH/MM3 (0-0.4); EOSINOPHIL % 0.9 % (0.0-4.0); HEMATOCRIT 41.1 % (39.0-51.0); HEMOGLOBIN 14.4 GM/DL (13.0-17.0); LYMPH % 19.1 % (9.0-44.0); LYMPHOCYTE # 2.5 TH/MM3 (1.0-4.8); MEAN CELL VOLUME 94.4 FL (80.0-100.0); MEAN CORPUSCULAR HEMOGLOBIN 32.9 PG (27.0-34.0); MEAN CORPUSCULAR HGB CONC 34.9 % (32.0-36.0); MEAN PLATELET VOLUME 9.5 FL (7.0-11.0); MONO % 8.9 % (0.0-8.0); MONOCYTE # 1.2 TH/MM3 (0-0.9); NEUT % 70.4 % (16.0-70.0); PLATELET COUNT 109 TH/MM3 (150-450); RED BLOOD COUNT 4.36 MIL/MM3 (4.50-5.90); RED CELL DISTRIBUTION WIDTH 12.7 % (11.6-17.2); WHITE BLOOD COUNT 13.2 TH/MM3 (4.0-11.0)
[2017-11-18 04:44] LABS: INTERNATIONAL NORMALIZED RATIO 1.1 RATIO; PROTHROMBIN TIME - PATIENT 10.8 SEC (9.8-11.6)
[2017-11-18 04:48] LABS: BICARBONATE 26.2 MEQ/L (21.0-32.0); CALCIUM 8.3 MG/DL (8.5-10.1); CREATININE 0.77 MG/DL (0.60-1.30)
[2017-11-18] MEDS: INSULIN ASPART SUPPLEMENTAL SCALE SQ SCH ×3 (05:23→18:00)
--- NOTE | 2017-11-18 07:04 | HHI.PR ---
Review/Management Daily Summary 11/18 ct brain and mri brain seen left hemiparesis remains same awakens with stim and follows commands as yesterday spoke with RN no blood thinners for now watch for more cerebral edema and mass effect dr Eduardo covering weekend plan foor ct brain f/u tomorrow Subjective Active Medications Current Medications Medications (Trade) Dose Ordered Sig/Vin Route Start Time Stop Time Status Last Admin Sodium Chloride 1,000 ml @ 70 mls/hr [id number] IV 11/17/17 04:30 11/17/17 17:52 (NS Flush) 2 ml UNSCH PRN IV FLUSH 11/17/17 04:30 (NS Flush) 2 ml BID IV FLUSH 11/17/17 09:00 11/17/17 21:00 (Pepcid Inj) 20 mg Q12HR IV PUSH 11/17/17 09:00 11/17/17 21:21 (Pepcid) 20 mg Q12HR PO 11/17/17 09:00 (Zofran Inj) 4 mg Q6H PRN IV PUSH 11/17/17 04:30 (Albuterol Neb) 2.5 mg Q2HR NEB PRN INH 11/17/17 04:30 Miscellaneous Information 1 [id number] XX 11/17/17 04:30 (Chlorhexidine 2% Cloth) 3 pack Taper DAILY@04 TOP 11/18/17 04:00 11/14/18 03:59 (Chlorhexidine 2% Cloth) 3 pack UNSCH PRN TOP 11/17/17 04:30 (Estefany-Colace) 1 tab BID PO 11/17/17 09:00 (Milk Of Magnesia Liq) 30 ml Q12H PRN PO 11/17/17 04:30 (Senokot) 17.2 mg Q12H PRN PO 11/17/17 04:30 (Dulcolax Supp) 10 mg DAILY PRN RECTAL 11/17/17 04:30 (Lactulose Liq) 30 ml DAILY PRN PO 11/17/17 04:30 (Trandate Inj) 10 mg Q4H PRN IV PUSH 11/17/17 04:30 (Apresoline Inj) 10 mg Q4H PRN IV PUSH 11/17/17 04:30 (D50w (Vial) Inj) 50 ml UNSCH PRN IV PUSH 11/17/17 04:30 (Glucagon Inj) 1 mg UNSCH PRN OTHER 11/17/17 04:30 (NovoLOG SUPPLEMENTAL SCALE) 1 Q6H SQ 11/17/17 06:00 11/17/17 06:30 (Tylenol Supp) 650 mg Q4H PRN RECTAL 11/17/17 05:30 Allergies Allergies Coded Allergies No Known Allergies (Unverified11/17/17) Exam I&O / VS Vital Signs Date Time Temp Pulse Resp B/P (MAP) Pulse Ox O2 Delivery O2 Flow Rate FiO2 11/18/17 06:13 65 11/18/17 04:00 64 11/18/17 04:00 98.0 62 19 149/72 (97) 99 11/18/17 03:42 97 Nasal Cannula 2.00 11/18/17 02:03 74 11/18/17 00:32 94 Nasal Cannula 2.00 11/18/17 00:00 98.2 63 20 142/74 (96) 99 11/18/17 00:00 76 11/17/17 22:00 76 11/17/17 20:46 97 Nasal Cannula 2.00 11/17/17 20:00 98.0 73 23 153/90 (111) 95 11/17/17 20:00 75 11/17/17 19:00 98 Nasal Cannula 2.00 11/17/17 18:00 72 11/17/17 16:00 69 11/17/17 16:00 98.4 69 21 150/74 (99) 98 11/17/17 14:00 70 11/17/17 12:00 56 11/17/17 12:00 97.9 56 16 112/61 (78) 99 11/17/17 10:00 60 11/17/17 08:00 62 11/17/17 08:00 98.8 64 17 105/57 (73) 99 11/17/17 07:52 98 Nasal Cannula 2.00 11/17/17 07:45 Nasal Cannula 2.00 Objective Radiology Results Last [address] 11/18/17 0000 Signed Impressions: Service Date/Time: Saturday, November 18, 2017 00:20 - CONCLUSION: Evolving huge area of right MCA stroke and mild subarachnoid hemorrhage in right temporal lobe is difficult to exclude at this time, however it is only questionable. KBelkis Garsia MD Thyroid Ultrasound 11/17/17 0000 Signed Impressions: Service Date/Time: November 11:21 - CONCLUSION: Bilateral thyroid nodules. If these lesions have not been previously evaluated, fine-needle aspiration biopsy would be recommended on an outpatient elective basis Collin Melissa MD Brain MRI 11/17/17 0000 Signed Impressions: Service Date/Time: November 09:50 - CONCLUSION: 1. Acute infarction involving the right MCA territory which correlates to the finding on the CTA. No mass effect. There are scattered blood products throughout the infarct bed. Keshawn Dickson Jr., MD Neck CTA 11/16/17 2343 Signed Impressions: Service Date/Time: Thursday, November 16, 2017 23:53 - CONCLUSION: 1. Multinodular thyroid not mentioned above with thyroid enlargement, left greater than right and mild mass effect on the trachea. 2. 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 3. No evidence for hemodynamically significant stenosis of either internal carotid artery. 4. 5. The findings were discussed with Dr. Samaniego at 12: 6. 17 AM on November 17, 2017. Jarvis Dewitt MD Head CTA 11/16/17 2343 Signed Impressions: Service Date/Time: Thursday, November 16, 2017 23:53 - CONCLUSION: Right MCA occlusion. The findings were discussed with Dr. Samaniego, neurologist can conveyor feeder at 12:17 AM on November 17, 2017. Jarvis Dewitt MD Micro and Labs Laboratory Tests Test 11/18/17 03:53 11/18/17 04:14 White Blood Count 13.2 Red Blood Count 4.36 Hemoglobin 14.4 Hematocrit 41.1 Mean Corpuscular Volume 94.4 Mean Corpuscular Hemoglobin 32.9 Mean Corpuscular Hemoglobin Concent 34.9 Red Cell Distribution Width 12.7 Platelet Count 109 Mean Platelet Volume 9.5 Neutrophils (%) (Auto) 70.4 Lymphocytes (%) (Auto) 19.1 Monocytes (%) (Auto) 8.9 Eosinophils (%) (Auto) 0.9 Basophils (%) (Auto) 0.7 Neutrophils # (Auto) 9.3 Lymphocytes # (Auto) 2.5 Monocytes # (Auto) 1.2 Eosinophils # (Auto) 0.1 Basophils # (Auto) 0.1 CBC Comment DIFF FINAL Differential Comment Blood Urea Nitrogen 11 Creatinine 0.77 Random Glucose 200 Calcium Level 8.3 Sodium Level 136 Potassium Level 4.9 Chloride Level 103 Carbon Dioxide Level 26.2 Anion Gap 7 Estimat Glomerular Filtration Rate 99 Prothrombin Time 10.8 Prothromb Time International Ratio 1.1 Activated Partial Thromboplast Time 25.4 Fibrinogen 209 Bri Samaniego MD Nov 18, 2017 07:04
--- NOTE | 2017-11-18 07:51 | HHI.CCPN ---
Subjective Remarks/Hospital Course 72 yo R hand dominant WM with PMH of obesity, BPH, and limited prior contact with medical care who presents to [facility] [place] [facility] with confusion, aphasia, L hemiparesis. His estimates that symptoms occurred at 22:50-23:00 on . She states he was ambulating around the house and was "wandering" and "seemed confused". His contacted patient's brother who was staying in the house across the street and then he arrived and suggested she call [facility]. He had no noted seizure activity. He is not on anticoagulants or antiplatelet therapy. BP on arrival was 138/78. CT brain demonstrated atrophy and remote left parietal infarct. There was no acute infarct/hemorrhage/mass. Patient initially refused TPA however encouraged him to proceed with it. He seemed confused and there was question of whether he was capacitated for medical decision making so ultimately consented to TPA which was administered.. CTA brain demonstrated occlusion of M1 segment of R MCA. CTA carotids showed no significant stenosis. He was transferred from [facility] to [facility] where he underwent embolectomy by Dr. Watt. 11/18: Left sided weakness persists. CT with evolving right MCA territory infarction. Objective Vital Signs Date Time Temp Pulse Resp B/P (MAP) Pulse Ox O2 Delivery O2 Flow Rate FiO2 11/18/17 06:13 65 11/18/17 04:00 98.0 19 149/72 (97) 99 11/18/17 03:42 Nasal Cannula 2.00 Intake and Output 11/18/17 11/18/17 11/19/17 08:00 16:00 00:00 Output Total 500 ml Balance -500 ml Result Diagram: 11/18/17 0353 11/18/17 0353 Objective Remarks GENERAL: Well-nourished, elderly man. Alert. SKIN: Warm and dry. HEAD: Atraumatic. Normocephalic. EYES: Pupils equal and round, 32mm and reactive. No scleral icterus. No injection or drainage. ENT: No nasal bleeding or discharge. Mucous membranes moist. NECK: Trachea midline. Airway widely patent. CARDIOVASCULAR: Regular rate and rhythm, sinus rhythm on the monitor. No murmur rub or gallop appreciated. No JVD. RESPIRATORY: Breathing comfortably, no accessory muscle use. Clear, no adventitious sounds. GASTROINTESTINAL: Abdomen soft, non-tender, nondistended bowel sounds present. BS active. MUSCULOSKELETAL: Extremities without clubbing, cyanosis, or edema. No obvious deformities. NEUROLOGICAL: Sleepy but will arouse to voice. Speech clear. Oriented to self, location, year. Left facial droop. Strength 5 out of 5 right upper extremity and right lower extremity. 1/5 L biceps otherwise flaccid. 1/5 L hip flexion and wiggles L toes slightly. 0/5 L ankle dorsi/plantar flexion. Babinski upgoing on left. Decreased sensation soft touch to left upper and left lower extremity. A/P Problem List: (1) Obesity (BMI 30-39.9) ICD Code: E66.9 - Obesity, unspecified Status: Chronic (2) Hyperglycemia ICD Code: R73.9 - Hyperglycemia, unspecified Status: Acute (3) Multinodular thyroid ICD Code: E04.2 - Nontoxic multinodular goiter Status: Chronic (4) Leukocytosis ICD Code: D72.829 - Elevated white blood cell count, unspecified Status: Acute (5) BPH (benign prostatic hyperplasia) ICD Code: N40.0 - Benign prostatic hyperplasia without lower urinary tract symptoms Status: Chronic (6) Acute right MCA stroke ICD Code: I63.511 - Cerebral infarction due to unspecified occlusion or stenosis of right middle cerebral artery Status: Acute (7) Received intravenous tissue plasminogen activator (tPA) in emergency department ICD Code: Z92.82 - Status post administration of tPA (rtPA) in a different facility within the last 24 hours prior to admission to current facility Status: Acute (8) Hyponatremia ICD Code: E87.1 - Hypo-osmolality and hyponatremia Assessment and Plan NEURO: Acute ischemic stroke right MCA stroke Received TPA at midnight 11/17. Status post right M1 embolectomy by Dr. Watt 11/17, (2 passes of Penumbra catheter) Antihypertensive management to maintain systolic blood pressure less than 180, diastolic blood pressure less than 105. Avoid anticoagulant or antiplatelet therapy for 24 hours Monitor telemetry. Follow-up 2-D echo, lipids, hemoglobin A1c CTA carotids negative for significant carotid occlusion. Speech therapy to evaluate swallow. PT/OT Neurology consult, Dr. Samaniego. Dense deficit persists left side. RESP: Nasal cannula tolerate to maintain sat greater than 94% Will monitor for evidence of airway protection. Intubated if needed. Noted mild mass effect on the trachea due to thyroid goiter on CT scan. Controls airway well. CV: Monitor hemodynamics Labetalol/hydralazine as needed for systolic blood pressure greater than 180, diastolic blood pressure greater than 105 Troponin negative GI: Obesity NPO. Speech therapy to evaluate swallow again today 11/18 Famotidine for stress ulcer prophylaxis. FEN/RENAL: BPH Jaimes is in place. UA was not remarkable for significant hematuria. ID: Leukocytosis, likely reactive Monitor for signs and symptoms of infection. UA negative for markers of infection HEME: Follow-up CBC after 24 hours Not on antiplatelet or anticoagulant therapy. Received TPA at 2345 11/16 ENDO: Multi-nodular goiter CTA neck showed multinodular thyroid, left greater than right with mild mass effect on the trachea. Obtain thyroid ultrasound -> bilateral nodules. Acute hyperglycemia No known history of diabetes mellitus. Obtain hemoglobin A1c On to bedside glucose every 6 hours and initiate low-dose insulin sliding scale as indicated. PROPH: SCDs for DVT prophylaxis. Avoid pharmacologic DVT prophylaxis for 24 hours following systemic TPA. Famotidine IV for stress ulcer prophylaxis. ACCESS: Peripheral IV providing adequate access at this time. FULL CODE Overall impression: Persistent left sided deficit consistent with CT findings of large right hemisphere infarction. Continued non-dominant hemisphere swelling is expected; will try to minimize with hypertonic saline and low dose diuretic. Tim Echevarria MD Nov 18, 2017 07:51
[2017-11-18] MEDS ORDERED: FUROSEMIDE 20 MG/2 ML VIAL IV PUSH ONE (08:15)
[2017-11-18] MEDS: FAMOTIDINE 20 MG/2 ML VIAL IV PUSH SCH ×2 (08:43→21:39)
[2017-11-18] MEDS: SODIUM CHLORIDE 0.9% FLUSH 10 ML FLUSH IV FLUSH SCH ×2 (08:43→21:00)
[2017-11-18] MEDS: FAMOTIDINE 20 MG TAB PO SCH ×2 (08:43→21:00)
[2017-11-18] MEDS: DOCUSATE SODIUM 50 MG/SENNA 8.6 MG TAB PO SCH ×2 (08:43→21:39)
[2017-11-18] MEDS: SODIUM CHLORIDE 23.4% INJ 188 MEQ in SODIUM CHLOR 0.9% 1000 ML INJ 1,000 ML IV SCH (08:43)
--- NOTE | 2017-11-18 13:40 | RADRPT ---
EXAM DATE/TIME: 11/17/2017 02:03 [facility] COMPARISON: No previous studies available for comparison. INDICATIONS : Patient presents as stroke alert in need of cerebral angiogram with possible intracranial thrombectom y. MEDICAL HISTORY : Obesity BPH SURGICAL HISTORY : Tonsillectomy during childhood ENCOUNTER: Initial ACUITY: 1 day PAIN SCORE: Nonresponsive. LOCATION: N/A FLUORO TIME: 9.9 minutes IMAGE SERIES: 14 ACCESS SITE: Right Femoral artery SEDATION TIME: 50 minutes CONTRAST: 30 cc Visipaque (iodixanol) MEDICATION(S): 1.) 1 mg midazolam (Versed) IV 2.) 50 mcg fentanyl (Sublimaze) IV 3.) 3,000 units Heparin IV 4.) 1 Nitroglycerin paste IN Topical 5.) 10 mg Verapamil IART DEVICE(S): 1.) Right middle cerebral artery AHSAN 068 mechanical thrombectomy 2.) Right common femoral artery 6fr Perclose TIMELINE: Interventional team called: 01:17 am Interventional team arrived: 01:37 am Interventional team ready: 01:41 am Patient arrival: 01:44 am Groin puncture: 02:07 am Recanalization: 02:42 am PROCEDURE : 1. Ultrasound-guided puncture of the access site. 2. Angiography of the access site prior to closure device. 3. Conscious sedation with continuous EKG and Oximetry monitoring. 4. Percutaneous closure of the access site. 5. Angiography of temporal branch of the right MCA 6. Penumbra embolectomy, right MCA The risks, benefits and alternatives to the procedure were explained and verbal and written consent w as obtained. The site was prepped in sterile fashion. Full sterile technique was used, including ca p, mask, sterile gloves and gown and a large sterile sheet. Hand hygiene and 2% chlorhexidine and/or betadine/alcohol prep was utilized per protocol for cutaneous antisepsis. Sterile gel and sterile p robe cover were utilized for ultrasound guidance. The skin and subcutaneous tissues were infiltrated with local anesthetic solution. With ultrasound and fluoroscopic guidance the selected artery was punctured and a vascular sheath was placed. Angiography of the common femoral artery was performed for evaluation prior to percutaneous closure device placement. A JB2 catheter was used to select the brachiocephalic artery. Wire and catheter were then passed up i nto the common femoral. Contrast injection confirmed position. The wire and catheter were then manipu lated into the internal carotid. Glidewire was exchanged for a magic port to facilitate placement of the 90 cm Neuron sheath. Sheath t ip was positioned in the intrapetrous portion of the right internal carotid artery. Side-port was con nected to a verapamil pressure bag. Contrast injection confirmed occlusion of the right MCA short aft er its origin. Through the neuron sheath, the coaxial combination of the 0.068 penumbra catheter, Marksman catheter and agility wire were then advanced through the internal carotid up to the edge of the thrombus. The agility wire and Marksman catheter were then advanced through the occlusion and into a temporal branc h of the MCA trifurcation. Position was confirmed with positive contrast through the microcatheter. T he penumbra catheter was then advanced over the microcatheter and wire to the edge of the thrombus. T he catheter was then connected to suction and aspiration was maintained for approximately 120 seconds . The entire catheter was then withdrawn slowly while aspirating the side port of the neuron sheath. After completely removing the penumbra catheter and evacuating the sheath, repeat contrast injection showed marked improvement with some antegrade flow. There was still some partially occlusive thrombus in branch vessels of the distal MCA, just proximal to the trifurcation. Therefore, a second pass was made in a similar fashion as described above. Additional thrombus was removed with confucianist of bl ood flow to the MCA territory. Some thrombus persisted in small branch vessels but these are to small to extract. Hemostasis was obtained with the prescribed medicated closure device. Conscious sedation was perform ed with the prescribed dosages and duration as above in the presence of an independent trained radiol ogy nurse to assist in the monitoring of the patient. EKG and oximetry remained stable throughout th e procedure. CONCLUSION: Right MCA embolectomy as above. Jayce Watt MD on November 18, 2017 at 13:32 Board Certified Radiologist. This report was verified electronically.
[2017-11-19] VITALS (15 sets, daily range): BP systolic 116–171; BP diastolic 56–84; PULSE 55–97; RESP 13–27; TEMP 97.2–98.6; O2SAT 95–100
[2017-11-19] MEDS: CHLORHEXIDINE GLUCONATE 2 % 1 PACK (2 CLOTHS) TOP SCH (03:17)
--- NOTE | 2017-11-19 05:09 | RADRPT ---
EXAM DATE/TIME: 11/19/2017 04:59 [facility] COMPARISON: CT BRAIN W/O CONTRAST, November 18, 2017, 0:20. INDICATIONS : Follow up stroke; post thrombectomy. RADIATION DOSE: 43.37 CTDIvol (mGy) MEDICAL HISTORY : Non-responsive. SURGICAL HISTORY : Non-responsive. ENCOUNTER: Subsequent ACUITY: 3 days PAIN SCALE: Non-responsive LOCATION: cranial TECHNIQUE: Multiple contiguous axial images were obtained of the head. Using automated exposure control and adj ustment of the mA and/or kV according to patient size, radiation dose was kept as low as reasonably a chievable to obtain optimal diagnostic quality images. DICOM format image data is available electro nically for review and comparison. FINDINGS: Again noted is significant infarction in the right MCA territory no significant change with areas of increased density and woods white junction probably related to significant lucency of the adjacent inf arcted brain. Hemorrhage is not suspected at this time and there is no mass effect. CONCLUSION: No appreciable change in significant right MCA territory infarction. Lauryn Garsia MD on November 19, 2017 at 5:06 Board Certified Radiologist. This report was verified electronically.
[2017-11-19 05:32] LABS: BICARBONATE 24.7 MEQ/L (21.0-32.0); CALCIUM 8.5 MG/DL (8.5-10.1); CREATININE 0.75 MG/DL (0.60-1.30)
[2017-11-19] MEDS: SODIUM CHLORIDE 23.4% INJ 188 MEQ in SODIUM CHLOR 0.9% 1000 ML INJ 1,000 ML IV SCH (05:38)
[2017-11-19] MEDS: INSULIN ASPART SUPPLEMENTAL SCALE SQ SCH ×5 (05:41→23:45)
[2017-11-19] MEDS: DOCUSATE SODIUM 50 MG/SENNA 8.6 MG TAB PO SCH ×2 (09:00→21:00)
[2017-11-19] MEDS: FAMOTIDINE 20 MG TAB PO SCH (09:00)
[2017-11-19] MEDS: FAMOTIDINE 20 MG/2 ML VIAL IV PUSH SCH ×2 (10:12→21:00)
[2017-11-19] MEDS: SODIUM CHLORIDE 0.9% FLUSH 10 ML FLUSH IV FLUSH SCH ×2 (10:13→20:19)
--- NOTE | 2017-11-19 10:23 | HHI.CCPN ---
Subjective Remarks/Hospital Course 72 yo R hand dominant WM with PMH of obesity, BPH, and limited prior contact with medical care who presents to [facility] [place] [place] [facility] with confusion, aphasia, L hemiparesis. His estimates that symptoms occurred at 22:50-23:00 on . She states he was ambulating around the house and was "wandering" and "seemed confused". His contacted patient's brother who was staying in the house across the street and then he arrived and suggested she call [facility]. He had no noted seizure activity. He is not on anticoagulants or antiplatelet therapy. BP on arrival was 138/78. CT brain demonstrated atrophy and remote left parietal infarct. There was no acute infarct/hemorrhage/mass. Patient initially refused TPA however encouraged him to proceed with it. He seemed confused and there was question of whether he was capacitated for medical decision making so ultimately consented to TPA which was administered.. CTA brain demonstrated occlusion of M1 segment of R MCA. CTA carotids showed no significant stenosis. He was transferred from [facility] to [facility] where he underwent embolectomy by Dr. Watt. 11/18: Left sided weakness persists. CT with evolving right MCA territory infarction. 11/19: CT head with completed defect right parietal region, some expansion and shift. Protects airway, comfortable. New onset a-fib with rate well controlled around 110. Start amiodarone and try to convert. No anticoagulation. Objective Vital Signs Date Time Temp Pulse Resp B/P (MAP) Pulse Ox O2 Delivery O2 Flow Rate FiO2 11/19/17 08:30 99 21 11/19/17 06:07 Nasal Cannula 2.00 11/19/17 06:05 67 11/19/17 04:00 98.6 20 144/70 (94) Intake and Output 11/19/17 11/19/17 11/20/17 08:00 16:00 00:00 Output Total 500 ml Balance -500 ml Result Diagram: 11/18/17 0353 11/19/17 0446 Objective Remarks GENERAL: Well-nourished, elderly man. Alert. SKIN: Warm and dry. HEAD: Atraumatic. Normocephalic. EYES: Pupils equal and round, 2 mm and reactive. No scleral icterus. No injection or drainage. ENT: No nasal bleeding or discharge. Mucous membranes moist. NECK: Trachea midline. Airway widely patent. CARDIOVASCULAR: Regular rate and rhythm, sinus rhythm on the monitor. No murmur rub or gallop appreciated. No JVD. RESPIRATORY: Breathing comfortably, no accessory muscle use. Clear, no adventitious sounds. GASTROINTESTINAL: Abdomen soft, non-tender, nondistended bowel sounds present. BS active. MUSCULOSKELETAL: Extremities without clubbing, cyanosis, or edema. Well perfused. NEUROLOGICAL: Sleepy but will arouse to voice. Speech clear. Oriented to self, location, year. Left facial droop. Strength 5 out of 5 right upper extremity and right lower extremity. 1/5 L biceps otherwise flaccid. 1/5 L hip flexion and wiggles L toes slightly. 0/5 L ankle dorsi/plantar flexion. Decreased sensation soft touch to left upper and left lower extremity. A/P Problem List: (1) Acute right MCA stroke ICD Code: I63.511 - Cerebral infarction due to unspecified occlusion or stenosis of right middle cerebral artery Status: Acute (2) Received intravenous tissue plasminogen activator (tPA) in emergency department ICD Code: Z92.82 - Status post administration of tPA (rtPA) in a different facility within the last 24 hours prior to admission to current facility Status: Acute (3) Hyponatremia ICD Code: E87.1 - Hypo-osmolality and hyponatremia (4) Obesity (BMI 30-39.9) ICD Code: E66.9 - Obesity, unspecified Status: Chronic (5) Hyperglycemia ICD Code: R73.9 - Hyperglycemia, unspecified Status: Acute (6) Multinodular thyroid ICD Code: E04.2 - Nontoxic multinodular goiter Status: Chronic (7) Leukocytosis ICD Code: D72.829 - Elevated white blood cell count, unspecified Status: Acute (8) BPH (benign prostatic hyperplasia) ICD Code: N40.0 - Benign prostatic hyperplasia without lower urinary tract symptoms Status: Chronic Assessment and Plan NEURO: Acute ischemic stroke right MCA stroke Received TPA at midnight 11/17. Status post right M1 embolectomy by Dr. Watt 11/17, (2 passes of Penumbra catheter) Antihypertensive management to maintain systolic blood pressure less than 180, diastolic blood pressure less than 105. Avoid anticoagulant or antiplatelet therapy for 24 hours Monitor telemetry. Follow-up 2-D echo, lipids, hemoglobin A1c CTA carotids negative for significant carotid occlusion. Speech therapy to evaluate swallow. PT/OT Neurology consult, Dr. Samaniego. Dense deficit persists left side. Continue 2% saline for 24 hours. RESP: Nasal cannula tolerate to maintain sat greater than 94% Will monitor for evidence of airway protection. Intubated if needed. Noted mild mass effect on the trachea due to thyroid goiter on CT scan. Controls airway well. CV: Monitor hemodynamics Labetalol/hydralazine as needed for systolic blood pressure greater than 180, diastolic blood pressure greater than 105 Troponin negative New a-fib, rate controlled. Start amio to convert. Check lytes. GI: Obesity NPO. Speech therapy to evaluate swallow again today 11/18 Famotidine for stress ulcer prophylaxis. FEN/RENAL: BPH Jaimes is in place. UA was not remarkable for significant hematuria. ID: Leukocytosis, likely reactive Monitor for signs and symptoms of infection. UA negative for markers of infection HEME: Follow-up CBC after 24 hours Not on antiplatelet or anticoagulant therapy. Received TPA at 2345 11/16 ENDO: Multi-nodular goiter CTA neck showed multinodular thyroid, left greater than right with mild mass effect on the trachea. Obtain thyroid ultrasound -> bilateral nodules. Acute hyperglycemia No known history of diabetes mellitus. Obtain hemoglobin A1c On to bedside glucose every 6 hours and initiate low-dose insulin sliding scale as indicated. PROPH: SCDs for DVT prophylaxis. Avoid pharmacologic DVT prophylaxis for 24 hours following systemic TPA. Famotidine IV for stress ulcer prophylaxis. ACCESS: Peripheral IV providing adequate access at this time. FULL CODE Overall impression: Persistent left sided deficit consistent with CT findings of large right hemisphere infarction.Continued non-dominant hemisphere swelling is expected; will try to minimize with hypertonic saline and low dose diuretic. Transfer to floor OK after 2% saline completed. Tim Echevarria MD Nov 19, 2017 10:23
[2017-11-19] MEDS ORDERED: AMIODARONE INJ 450 MG in DEXTROSE 5% IN WATE(EXCEL) INJ 241 ML IV PRN ×2 (14:00)
[2017-11-19] MEDS ORDERED: AMIODARONE INJ 150 MG in DEXTROSE 5% IN WATER 100ML INJ 97 ML IV ONE ×2 (14:00)
[2017-11-19] MEDS: ARTIFICIAL TEARS OPTH SOLN 15 ML BTL EACH EYE SCH ×2 (18:18→23:00)
--- NOTE | 2017-11-19 19:37 | HHI.PR ---
Review/Management Diagnosis right MCA stroke s/p iv TPA and interventional thrombectomy new onset afib Plan continue current care Unable to anticoagulate due to component of subarachnoid hemorrhage Diagnosis/Plan: Daily Summary 11/18 ct brain and mri brain seen left hemiparesis remains same awakens with stim and follows commands as yesterday spoke with RN no blood thinners for now watch for more cerebral edema and mass effect dr Eduardo covering weekend plan foor ct brain f/u tomorrow Subjective Subjective Comments No acute events reported left hemiparesis without change Active Medications Current Medications Medications (Trade) Dose Ordered Sig/Vin Route Start Time Stop Time Status Last Admin (NS Flush) 2 ml UNSCH PRN IV FLUSH 11/17/17 04:30 (NS Flush) 2 ml BID IV FLUSH 11/17/17 09:00 11/19/17 10:13 (Pepcid Inj) 20 mg Q12HR IV PUSH 11/17/17 09:00 11/19/17 10:12 (Zofran Inj) 4 mg Q6H PRN IV PUSH 11/17/17 04:30 (Albuterol Neb) 2.5 mg Q2HR NEB PRN INH 11/17/17 04:30 Miscellaneous Information 1 Q361D XX 11/17/17 04:30 (Chlorhexidine 2% Cloth) 3 pack Taper DAILY@04 TOP 11/18/17 04:00 11/14/18 03:59 (Chlorhexidine 2% Cloth) 3 pack UNSCH PRN TOP 11/17/17 04:30 (Estefnay-Colace) 1 tab BID PO 11/17/17 09:00 11/18/17 21:39 (Milk Of Magnesia Liq) 30 ml Q12H PRN PO 11/17/17 04:30 (Senokot) 17.2 mg Q12H PRN PO 11/17/17 04:30 (Dulcolax Supp) 10 mg DAILY PRN RECTAL 11/17/17 04:30 (Lactulose Liq) 30 ml DAILY PRN PO 11/17/17 04:30 (Trandate Inj) 10 mg Q4H PRN IV PUSH 11/17/17 04:30 (Apresoline Inj) 10 mg Q4H PRN IV PUSH 11/17/17 04:30 (D50w (Vial) Inj) 50 ml UNSCH PRN IV PUSH 11/17/17 04:30 (Glucagon Inj) 1 mg UNSCH PRN OTHER 11/17/17 04:30 (NovoLOG SUPPLEMENTAL SCALE) 1 Q6H SQ 11/17/17 06:00 11/18/17 13:10 (Tylenol Supp) 650 mg Q4H PRN RECTAL 11/17/17 05:30 Sodium Chloride 188 meq/Sodium Chloride 1,047 ml @ 30 mls/hr Q24H IV 11/18/17 09:00 11/19/17 05:38 Amiodarone HCl 450 mg/Dextrose 250 ml @ 33.33 mls/ hr Q7H31M PRN IV 11/19/17 14:00 11/19/17 15:31 (Tears Naturale Opth Soln) 1 drop Q6H EACH EYE 11/19/17 17:00 11/19/17 18:18 Allergies Allergies Coded Allergies No Known Allergies (Unverified11/17/17) Exam I&O / VS 11/19/17 11/19/17 11/20/17 15:00 23:00 07:00 Intake Total 100 ml Output Total 1400 ml Balance -1300 ml Intake Oral 0 ml IV Total 100 ml Output Urine Total 1400 ml # Bowel Movements 0 Vital Signs Date Time Temp Pulse Resp B/P (MAP) Pulse Ox O2 Delivery O2 Flow Rate FiO2 11/19/17 18:00 92 11/19/17 18:00 95 126/60 11/19/17 16:00 97.2 95 13 116/56 (76) 97 11/19/17 16:00 94 11/19/17 15:31 90 137/77 11/19/17 14:24 117 142/83 11/19/17 14:00 94 11/19/17 14:00 94 11/19/17 12:00 74 11/19/17 12:00 97.2 74 27 150/83 (105) 97 11/19/17 10:00 65 11/19/17 08:30 99 21 11/19/17 08:00 97.8 75 24 171/84 (113) 95 11/19/17 08:00 74 11/19/17 06:07 95 Nasal Cannula 2.00 11/19/17 06:05 67 11/19/17 04:00 62 11/19/17 04:00 98.6 62 20 144/70 (94) 96 11/19/17 02:00 60 11/19/17 00:00 72 11/19/17 00:00 72 19 155/81 (105) 100 11/18/17 22:00 75 11/18/17 20:00 74 11/18/17 20:00 98.0 76 14 147/93 (111) 100 Exam Comments lethargic but arousable and follows simple commands CN---left UMN 7 palsey MOTOR 0/5 LUE and LLE moves right with normal strength Objective Micro and Labs Laboratory Tests Test 11/19/17 04:46 Blood Urea Nitrogen 13 Creatinine 0.75 Random Glucose 192 Calcium Level 8.5 Sodium Level 141 Potassium Level 3.8 Chloride Level 109 Carbon Dioxide Level 24.7 Anion Gap 7 Estimat Glomerular Filtration Rate 102 Jesse Eduardo MD PhD Nov 19, 2017 19:37
[2017-11-20] VITALS (14 sets, daily range): BP systolic 141–169; BP diastolic 67–89; PULSE 54–77; RESP 17–25; TEMP 97.4–98.4; O2SAT 96–100
[2017-11-20] MEDS: SODIUM CHLORIDE 23.4% INJ 188 MEQ in SODIUM CHLOR 0.9% 1000 ML INJ 1,000 ML IV SCH ×2 (02:14→21:24)
[2017-11-20] MEDS ORDERED: AMIODARONE INJ 450 MG in SODIUM CHLOR 0.9% (EXCEL) INJ 250 ML IV PRN (02:30)
[2017-11-20] MEDS: CHLORHEXIDINE GLUCONATE 2 % 1 PACK (2 CLOTHS) TOP SCH (03:04)
[2017-11-20] MEDS: ARTIFICIAL TEARS OPTH SOLN 15 ML BTL EACH EYE SCH ×4 (04:32→23:00)
[2017-11-20] MEDS: INSULIN ASPART SUPPLEMENTAL SCALE SQ SCH ×3 (06:00→18:00)
[2017-11-20 06:01] LABS: BICARBONATE 23.2 MEQ/L (21.0-32.0); CALCIUM 8.4 MG/DL (8.5-10.1); CREATININE 0.76 MG/DL (0.60-1.30)
[2017-11-20] MEDS: DOCUSATE SODIUM 50 MG/SENNA 8.6 MG TAB PO SCH ×2 (08:25→21:00)
[2017-11-20] MEDS: SODIUM CHLORIDE 0.9% FLUSH 10 ML FLUSH IV FLUSH SCH ×2 (08:25→21:00)
[2017-11-20] MEDS: FAMOTIDINE 20 MG/2 ML VIAL IV PUSH SCH ×2 (08:25→21:00)
[2017-11-20] MEDS ORDERED: POTASSIUM CHLOR 20 MEQ PREMIX 100 ML IV ONE (08:30)
--- NOTE | 2017-11-20 08:35 | HHI.CCPN ---
Subjective Remarks/Hospital Course 72 yo R hand dominant WM with PMH of obesity, BPH, and limited prior contact with medical care who presents to [facility] [facility] with confusion, aphasia, L hemiparesis. His estimates that symptoms occurred at 22:50-23:00 on . She states he was ambulating around the house and was "wandering" and "seemed confused". His contacted patient's brother who was staying in the house across the street and then he arrived and suggested she call [facility]. He had no noted seizure activity. He is not on anticoagulants or antiplatelet therapy. BP on arrival was 138/78. CT brain demonstrated atrophy and remote left parietal infarct. There was no acute infarct/hemorrhage/mass. Patient initially refused TPA however encouraged him to proceed with it. He seemed confused and there was question of whether he was capacitated for medical decision making so ultimately consented to TPA which was administered.. CTA brain demonstrated occlusion of M1 segment of R MCA. CTA carotids showed no significant stenosis. He was transferred from [facility] to [facility] where he underwent embolectomy by Dr. Watt. 11/18: Left sided weakness persists. CT with evolving right MCA territory infarction. 11/19: CT head with completed defect right parietal region, some expansion and shift. Protects airway, comfortable. New onset a-fib with rate well controlled around 110. Start amiodarone and try to convert. No anticoagulation. 11/20: Back in sinus rhythm on amiodarone, convert to 200 po daily. Failed swallow evaluation; retry today. Will place NG tomorrow if needed for feeding. Controls airway well. Objective Vital Signs Date Time Temp Pulse Resp B/P (MAP) Pulse Ox O2 Delivery O2 Flow Rate FiO2 11/20/17 06:18 66 11/20/17 04:15 98.4 25 151/72 (98) 98 11/19/17 21:12 21 11/19/17 06:07 Nasal Cannula 2.00 Intake and Output 11/20/17 11/20/17 11/21/17 08:00 16:00 00:00 Intake Total 250 ml Output Total 475 ml Balance -225 ml Result Diagram: 11/18/17 7961 11/20/17 8901 Objective Remarks GENERAL: Well-nourished, elderly man. Lethargic. SKIN: Warm and dry. HEAD: Atraumatic. Normocephalic. EYES: Pupils equal and round, 2 mm and reactive. ENT: No nasal bleeding or discharge. Mucous membranes and tongue dry - mouth breathing. NECK: Trachea midline. Airway widely patent. CARDIOVASCULAR: Regular rate and rhythm, sinus rhythm on the monitor. No murmur rub or gallop appreciated. No JVD. RESPIRATORY: Breathing comfortably, no accessory muscle use. Clear, no adventitious sounds. GASTROINTESTINAL: Abdomen soft, non-tender, nondistended bowel sounds present. BS active. MUSCULOSKELETAL: Extremities without clubbing, cyanosis, or edema. Well perfused. NEUROLOGICAL: Sleepy but will arouse to voice. Speech clear. Oriented to self, location, year. Left facial droop. Strength 5 out of 5 right upper extremity and right lower extremity. 1/5 left leg. Decreased sensation soft touch to left upper and left lower extremity. Sleeps with his eye lids open. A/P Problem List: (1) Acute right MCA stroke ICD Code: I63.511 - Cerebral infarction due to unspecified occlusion or stenosis of right middle cerebral artery Status: Acute (2) Received intravenous tissue plasminogen activator (tPA) in emergency department ICD Code: Z92.82 - Status post administration of tPA (rtPA) in a different facility within the last 24 hours prior to admission to current facility Status: Acute (3) Hyponatremia ICD Code: E87.1 - Hypo-osmolality and hyponatremia (4) Obesity (BMI 30-39.9) ICD Code: E66.9 - Obesity, unspecified Status: Chronic (5) Paroxysmal atrial fibrillation ICD Code: I48.0 - Paroxysmal atrial fibrillation (6) Hyperglycemia ICD Code: R73.9 - Hyperglycemia, unspecified Status: Acute (7) Multinodular thyroid ICD Code: E04.2 - Nontoxic multinodular goiter Status: Chronic (8) Leukocytosis ICD Code: D72.829 - Elevated white blood cell count, unspecified Status: Acute (9) BPH (benign prostatic hyperplasia) ICD Code: N40.0 - Benign prostatic hyperplasia without lower urinary tract symptoms Status: Chronic Assessment and Plan NEURO: Acute ischemic stroke right MCA stroke Received TPA at midnight 11/17. Status post right M1 embolectomy by Dr. Watt 11/17, (2 passes of Penumbra catheter) Antihypertensive management to maintain systolic blood pressure less than 180, diastolic blood pressure less than 105. Avoid anticoagulant or antiplatelet therapy for 24 hours Monitor telemetry. Follow-up 2-D echo, lipids, hemoglobin A1c CTA carotids negative for significant carotid occlusion. Speech therapy to evaluate swallow. PT/OT Neurology consult, Dr. Samaniego. Dense deficit persists left side. Continue 2% saline for 24 hours. RESP: Nasal cannula tolerate to maintain sat greater than 94% Will monitor for evidence of airway protection. Intubated if needed. Noted mild mass effect on the trachea due to thyroid goiter on CT scan. Controls airway well. CV: Monitor hemodynamics Labetalol/hydralazine as needed for systolic blood pressure greater than 180, diastolic blood pressure greater than 105 Troponin negative New a-fib -> converted with amiodarone. Check lytes. GI: Obesity NPO. Speech therapy to evaluate swallow again today 11/18 Famotidine for stress ulcer prophylaxis. FEN/RENAL: BPH Jaimes is in place. UA was not remarkable for significant hematuria. ID: Leukocytosis, likely reactive Monitor for signs and symptoms of infection. UA negative for markers of infection HEME: Follow-up CBC after 24 hours Not on antiplatelet or anticoagulant therapy. Received TPA at 2345 11/16 ENDO: Multi-nodular goiter CTA neck showed multinodular thyroid, left greater than right with mild mass effect on the trachea. Obtain thyroid ultrasound -> bilateral nodules. Acute hyperglycemia No known history of diabetes mellitus. Obtain hemoglobin A1c On to bedside glucose every 6 hours and initiate low-dose insulin sliding scale as indicated. PROPH: SCDs for DVT prophylaxis. Avoid pharmacologic DVT prophylaxis for 24 hours following systemic TPA. Famotidine IV for stress ulcer prophylaxis. ACCESS: Peripheral IV providing adequate access at this time. FULL CODE Overall impression: Persistent left sided deficit consistent with CT findings of large right hemisphere infarction. Continued non-dominant hemisphere swelling is expected; will try to minimize with hypertonic saline and low dose diuretic. Transfer to floor OK after 2% saline completed today. Tim Echevarria MD Nov 20, 2017 08:35
--- NOTE | 2017-11-20 12:27 | HHI.PR ---
Review/Management Diagnosis right MCA stroke s/p iv TPA and interventional thrombectomy new onset afib Plan continue current care Unable to anticoagulate due to component of subarachnoid hemorrhage Diagnosis/Plan: Daily Summary 11/18 ct brain and mri brain seen left hemiparesis remains same awakens with stim and follows commands as yesterday spoke with RN no blood thinners for now watch for more cerebral edema and mass effect dr Eduardo covering weekend plan foor ct brain f/u tomorrow Subjective Subjective Comments No acute events reported Active Medications Current Medications Medications (Trade) Dose Ordered Sig/Vin Route Start Time Stop Time Status Last Admin (NS Flush) 2 ml UNSCH PRN IV FLUSH 11/17/17 04:30 (NS Flush) 2 ml BID IV FLUSH 11/17/17 09:00 11/20/17 08:25 (Pepcid Inj) 20 mg Q12HR IV PUSH 11/17/17 09:00 11/20/17 08:25 (Zofran Inj) 4 mg Q6H PRN IV PUSH 11/17/17 04:30 (Albuterol Neb) 2.5 mg Q2HR NEB PRN INH 11/17/17 04:30 Miscellaneous Information 1 Q361D XX 11/17/17 04:30 (Chlorhexidine 2% Cloth) 3 pack Taper DAILY@04 TOP 11/18/17 04:00 11/14/18 03:59 (Chlorhexidine 2% Cloth) 3 pack UNSCH PRN TOP 11/17/17 04:30 (Estefany-Colace) 1 tab BID PO 11/17/17 09:00 11/19/17 21:00 (Milk Of Magnesia Liq) 30 ml Q12H PRN PO 11/17/17 04:30 (Senokot) 17.2 mg Q12H PRN PO 11/17/17 04:30 (Dulcolax Supp) 10 mg DAILY PRN RECTAL 11/17/17 04:30 (Lactulose Liq) 30 ml DAILY PRN PO 11/17/17 04:30 (Trandate Inj) 10 mg Q4H PRN IV PUSH 11/17/17 04:30 (Apresoline Inj) 10 mg Q4H PRN IV PUSH 11/17/17 04:30 (D50w (Vial) Inj) 50 ml UNSCH PRN IV PUSH 11/17/17 04:30 (Glucagon Inj) 1 mg UNSCH PRN OTHER 11/17/17 04:30 (NovoLOG SUPPLEMENTAL SCALE) 1 Q6H SQ 11/17/17 06:00 11/18/17 13:10 (Tylenol Supp) 650 mg Q4H PRN RECTAL 11/17/17 05:30 Sodium Chloride 188 meq/Sodium Chloride 1,047 ml @ 75 mls/hr [id number] IV 11/18/17 09:00 11/20/17 02:14 (Tears Naturale Opth Soln) 1 drop Q6H EACH EYE 11/19/17 17:00 11/20/17 11:11 (Cordarone) 200 mg DAILY PO 11/21/17 09:00 12/04/17 09:01 Allergies Allergies Coded Allergies No Known Allergies (Unverified11/17/17) Exam I&O / VS Vital Signs Date Time Temp Pulse Resp B/P (MAP) Pulse Ox O2 Delivery O2 Flow Rate FiO2 11/20/17 12:00 60 11/20/17 12:00 97.8 60 21 160/67 (98) 97 11/20/17 10:00 60 11/20/17 08:40 97 21 11/20/17 08:00 97.4 60 22 155/89 (111) 97 11/20/17 08:00 60 11/20/17 06:18 66 11/20/17 04:15 98.4 64 25 151/72 (98) 98 11/20/17 04:15 54 11/20/17 02:26 63 149/73 11/20/17 02:00 54 11/20/17 00:00 63 11/20/17 00:00 98.0 60 17 141/73 (95) 96 11/19/17 22:00 55 11/19/17 21:30 56 111/63 11/19/17 21:12 95 21 11/19/17 20:00 67 11/19/17 20:00 98.2 97 20 122/64 (83) 97 11/19/17 18:00 92 11/19/17 18:00 95 126/60 11/19/17 16:00 97.2 95 13 116/56 (76) 97 11/19/17 16:00 94 11/19/17 15:31 90 137/77 11/19/17 14:24 117 142/83 11/19/17 14:00 94 11/19/17 14:00 94 Exam Comments lethargic but arousable and follows simple commands CN---left UMN 7 palsey MOTOR 0/5 LUE and LLE moves right with normal strength Objective Micro and Labs Laboratory Tests Test 11/20/17 04:50 Blood Urea Nitrogen 15 Creatinine 0.76 Random Glucose 185 Calcium Level 8.4 Sodium Level 141 Potassium Level 3.9 Chloride Level 110 Carbon Dioxide Level 23.2 Anion Gap 8 Estimat Glomerular Filtration Rate 101 Jesse Eduardo MD PhD Nov 20, 2017 12:27
--- NOTE | 2017-11-20 15:36 | EKG ---
Date Performed: 11/19/2017 Time Performed: 13:21:34 PTAGE: 72 years EKG: Atrial fibrillation with rapid ventricular response. Poor R wave progression - probable nor mal variant Low QRS voltages in limb leads Since previous tracing, no significant change noted Abnorm al ECG PREVIOUS TRACING : 11/17/2017 08.53.34 DOCTOR: Dakota Tay Interpretating Date/Time 11/20/2017 15:36:02
[2017-11-21] VITALS (13 sets, daily range): BP systolic 101–163; BP diastolic 64–72; PULSE 53–95; RESP 16–23; TEMP 97.5–98.2; O2SAT 96–100
[2017-11-21] MEDS: CHLORHEXIDINE GLUCONATE 2 % 1 PACK (2 CLOTHS) TOP SCH (02:04)
[2017-11-21] MEDS: ARTIFICIAL TEARS OPTH SOLN 15 ML BTL EACH EYE SCH ×3 (05:00→17:00)
[2017-11-21 05:34] LABS: BICARBONATE 24.3 MEQ/L (21.0-32.0); CALCIUM 8.5 MG/DL (8.5-10.1); CREATININE 0.67 MG/DL (0.60-1.30); MAGNESIUM 2.5 MG/DL (1.5-2.5)
[2017-11-21] MEDS: INSULIN ASPART SUPPLEMENTAL SCALE SQ SCH ×4 (05:45→18:00)
[2017-11-21] MEDS: AMIODARONE 200 MG TAB PO SCH (09:00)
[2017-11-21] MEDS: DOCUSATE SODIUM 50 MG/SENNA 8.6 MG TAB PO SCH (09:00)
[2017-11-21] MEDS: SODIUM CHLOR 0.9% 1000 ML INJ 1,000 ML IV SCH (09:45)
[2017-11-21] MEDS: FAMOTIDINE 20 MG/2 ML VIAL IV PUSH SCH (09:46)
[2017-11-21] MEDS: SODIUM CHLORIDE 0.9% FLUSH 10 ML FLUSH IV FLUSH SCH (09:46)
--- NOTE | 2017-11-21 12:48 | HHI.PR ---
Subjective Remarks Sleepy on and off. Family at bedside very supportive. Patient is n.p.o. pending swallow evaluation. No new motor or sensory deficit. Skin is left hand , weakness in his left leg improved a little bit. Heart rate is stable. Patient denies any chest pain or shortness of breath. No nausea or vomiting, diarrhea or constipation. Has a very good appetite and wants to eat. No headaches. Light is bothering him, keeps his eyes mostly closed. Objective Vitals Vital Signs Date Time Temp Pulse Resp B/P (MAP) Pulse Ox O2 Delivery O2 Flow Rate FiO2 11/21/17 12:01 97 11/21/17 10:00 56 11/21/17 08:00 60 11/21/17 08:00 97.6 60 21 148/64 (92) 98 11/21/17 06:04 64 11/21/17 04:00 98.2 76 23 108/72 (84) 96 11/21/17 04:00 92 11/21/17 02:00 95 11/21/17 00:39 69 11/21/17 00:00 98.2 68 23 101/70 (80) 96 11/20/17 22:00 67 11/20/17 20:11 99 21 11/20/17 20:00 68 11/20/17 20:00 97.7 72 22 169/85 (113) 100 11/20/17 18:00 77 11/20/17 16:00 98.1 59 23 158/71 (100) 99 11/20/17 16:00 59 11/20/17 14:00 59 I/O 11/20/17 11/20/17 11/20/17 11/21/17 11/21/17 11/21/17 07:00 15:00 23:00 07:00 15:00 23:00 Intake Total 250 ml 100 ml 0 ml 221 ml Output Total 475 ml 500 ml 1500 ml Balance -225 ml -400 ml -1500 ml 221 ml Intake Oral 0 ml 0 ml 0 ml IV Total 250 ml 100 ml 221 ml Output Urine Total 475 ml 500 ml 1500 ml # Bowel Movements 0 0 0 Result Diagram: 11/18/17 0353 11/21/17 0400 Imaging Last Impressions Head CT 11/19/17 0000 Signed Impressions: Service Date/Time: Sunday, November 19, 2017 04:59 - CONCLUSION: No appreciable change in significant right MCA territory infarction. Lauryn Garsia MD Thyroid Ultrasound 11/17/17 0000 Signed Impressions: Service Date/Time: November 11:21 - CONCLUSION: Bilateral thyroid nodules. If these lesions have not been previously evaluated, fine-needle aspiration biopsy would be recommended on an outpatient elective basis Collin Melissa MD Cerebral Arteriogram 11/17/17 0000 Signed Impressions: Service Date/Time: November 02:03 - CONCLUSION: Right MCA embolectomy as above. Jayce Watt MD Brain MRI 11/17/17 0000 Signed Impressions: Service Date/Time: November 09:50 - CONCLUSION: 1. Acute infarction involving the right MCA territory which correlates to the finding on the CTA. No mass effect. There are scattered blood products throughout the infarct bed. Keshawn Dickson Jr., MD Neck CTA [id number] Signed Impressions: Service Date/Time: Thursday, November 16, 2017 23:53 - CONCLUSION: 1. Multinodular thyroid not mentioned above with thyroid enlargement, left greater than right and mild mass effect on the trachea. 2. 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 3. No evidence for hemodynamically significant stenosis of either internal carotid artery. 4. 5. The findings were discussed with Dr. Samaniego at 12: 6. 17 AM on November 17, 2017. Jarvis Dewitt MD Head CTA [id number] Signed Impressions: Service Date/Time: Thursday, November 16, 2017 23:53 - CONCLUSION: Right MCA occlusion. The findings were discussed with Dr. Samaniego, neurologist recreation facility attendant at 12:17 AM on November 17, 2017. Jarvis Dewitt MD Objective Remarks GENERAL: Very pleasant 72-year-old male, appears in acute distress, somnolent on /off. CARDIOVASCULAR: Regular rate and rhythm, sinus rhythm on the monitor. No murmur rub or gallop appreciated. No JVD. RESPIRATORY: Breathing comfortably, no accessory muscle use. Clear, no adventitious sounds. GASTROINTESTINAL: Abdomen soft, non-tender, nondistended bowel sounds present. BS active. MUSCULOSKELETAL: Extremities without clubbing, cyanosis, or edema. Well perfused. NEUROLOGICAL: Somnolent, but will arouse to voice. Speech clear. Oriented to self, location, year. Left facial droop. Strength 5 out of 5 right upper extremity and right lower extremity. 1/5 left leg. Decreased sensation soft touch to left upper and left lower extremity. A/P Problem List: (1) Acute right MCA stroke ICD Code: I63.511 - Cerebral infarction due to unspecified occlusion or stenosis of right middle cerebral artery Status: Acute (2) Received intravenous tissue plasminogen activator (tPA) in emergency department ICD Code: Z92.82 - Status post administration of tPA (rtPA) in a different facility within the last 24 hours prior to admission to current facility Status: Acute Assessment and Plan NEURO: Acute ischemic stroke right MCA stroke Received TPA at midnight 11/17. Status post right M1 embolectomy by Dr. Watt 11/17, (2 passes of Penumbra catheter) Antihypertensive management to maintain systolic blood pressure less than 180, diastolic blood pressure less than 105. Avoid anticoagulant or antiplatelet therapy for 24 hours Monitor telemetry. Follow-up 2-D echo, lipids, hemoglobin A1c CTA carotids negative for significant carotid occlusion. Speech therapy to evaluate swallow. PT/OT Neurology consult, Dr. Samaniego. Dense deficit persists left side. Continue 2% saline for 24 hours. RESP: Nasal cannula tolerate to maintain sat greater than 94% Will monitor for evidence of airway protection. Intubated if needed. Noted mild mass effect on the trachea due to thyroid goiter on CT scan. Controls airway well. CV: Monitor hemodynamics Labetalol/hydralazine as needed for systolic blood pressure greater than 180, diastolic blood pressure greater than 105 Troponin negative New a-fib -> converted with amiodarone. Check lytes Consult cardiology GI: Obesity NPO. Speech therapy to evaluate swallow again today 11/18 Famotidine for stress ulcer prophylaxis. FEN/RENAL: BPH Jaimes is in place. UA was not remarkable for significant hematuria. ID: Leukocytosis, likely reactive Monitor for signs and symptoms of infection. UA negative for markers of infection HEME: Follow-up CBC after 24 hours Not on antiplatelet or anticoagulant therapy. Received TPA at 2345 11/16 ENDO: Multi-nodular goiter CTA neck showed multinodular thyroid, left greater than right with mild mass effect on the trachea. Obtain thyroid ultrasound -> bilateral nodules. Acute hyperglycemia No known history of diabetes mellitus. Obtain hemoglobin A1c On to bedside glucose every 6 hours and initiate low-dose insulin sliding scale as indicated. PROPH: SCDs for DVT prophylaxis. Avoid pharmacologic DVT prophylaxis for 24 hours following systemic TPA. Famotidine IV for stress ulcer prophylaxis. ACCESS: Peripheral IV providing adequate access at this time. FULL CODE Persistent with left sided deficit consistent with CT findings of large right hemisphere infarction. Continued non-dominant hemisphere swelling is expected, minimized with hypertonic saline and low dose diuretic. DC 2% nS, start on 0.9 NS . Monitor PT/OT/SP ff Discussed with the patient and family, if not passing swallow evaluation will place NGT Transfer to neuro floor if OK per neuro Discussed with family, patient, ICU nurse. Ashia Scruggs MD Nov 21, 2017 12:48
--- NOTE | 2017-11-21 16:02 | MB ---
cc: MAYTE RAMOS M.D. DATE OF CONSULTATION 11/21/2017 REASON FOR CONSULTATION Atrial fibrillation. HISTORY OF PRESENT ILLNESS The patient is a 72-year-old white male, visiting here from [place], with a history of benign prostatic hypertrophy who was admitted on 11/17/2017 with an acute right middle cerebral artery CVA. The patient subsequently underwent embolectomy by Dr. Watt. Sometime over the weekend he was noted to have atrial fibrillation with an overall controlled ventricular response. On amiodarone he has converted back to sinus rhythm. The patient denies palpitations, dizziness, syncope, near-syncope, chest pain, shortness of breath, pedal edema, paroxysmal nocturnal dyspnea. PAST MEDICAL HISTORY Benign prostatic hypertrophy. PAST SURGICAL HISTORY Appendectomy. MEDICATIONS His current cardiac medications: Amiodarone 200 mg p.o. q. day. ALLERGIES No known drug allergies. FAMILY HISTORY Noncontributory. SOCIAL HISTORY The patient denies any history of alcohol or tobacco abuse. REVIEW OF SYSTEMS As in the history of present illness, otherwise negative or noncontributory. He also denies headache, abdominal pain, melena, dyspepsia, bright red blood per rectum. PHYSICAL EXAMINATION VITAL SIGNS: On physical examination his blood pressure is 148/64 with a pulse of 56, respirations 20. GENERAL: In general he is a well-developed, well-nourished white male in no acute distress. HEENT/NECK: Jugular venous pressure is normal. Carotid pulses are 2+ bilaterally and without bruits. CHEST: Examination of the chest reveals clear lung eldridge. CARDIAC: On cardiac examination he has a regular rhythm and rate without S3, S4 or murmur. ABDOMEN: On abdominal examination he has a soft, nontender abdomen. Bowel sounds are present. There is no definite hepatosplenomegaly. EXTREMITIES: Examination of the extremities reveals no clubbing, cyanosis or edema. EKG EKG from 11/19/2017 shows atrial fibrillation, poor R-wave progression. LABORATORY Laboratory data includes WBC 13.2, platelets 109, hemoglobin 14.4, potassium 3.7, BUN 14, creatinine 0.67, total cholesterol 246, triglycerides 581, HDL 33. IMPRESSION Paroxysmal atrial fibrillation in this 72-year-old white male with a history of benign prostatic hypertrophy now admitted with an acute right middle cerebral artery CVA, status post embolectomy. At this time he remains in sinus rhythm on oral amiodarone. The patient was asymptomatic with the arrhythmia. Echocardiogram last week reportedly showed ejection fraction of 40-45% with a mildly dilated left ventricle. There is no definite evidence for congestive heart failure or acute coronary syndrome. With respect to his thromboembolic risk from atrial fibrillation, it is high. RECOMMENDATIONS 1. Continue oral amiodarone. 2. Will review his 2-D echo. If indeed his ejection fraction is reduced, recommend considering the addition of an AHSAN inhibitor. With his relatively low heart rates would avoid beta jud therapy. 3. Consider statin therapy. 4. Given his high thromboembolic risk with atrial fibrillation recommend initiating anticoagulation therapy when okay from a neurological standpoint. 5. Will follow-up periodically. Mayte Ramos MD GHEdgardo/SOFIA /2:26 PM /3:51 PM AYDEN
--- NOTE | 2017-11-21 22:02 | RADRPT ---
EXAM DATE/TIME: 11/21/2017 21:18 [place] COMPARISON: No previous studies available for comparison. INDICATIONS : NG tube placement. MEDICAL HISTORY : None. SURGICAL HISTORY : None. ENCOUNTER: Initial ACUITY: 1 day PAIN SCORE: Non-responsive. LOCATION: Bilateral abdomen. FINDINGS: Examination of the abdomen demonstrates a normal bowel gas pattern. No free air is identified. No o rganomegaly is evident. Osseous structures are intact. A gastric tube descends to be gastric antral region CONCLUSION: NG tube tip into the distal stomach Collin Melissa MD on November 21, 2017 at 22:00 Board Certified Radiologist. This report was verified electronically.
[2017-11-22] VITALS (10 sets, daily range): BP systolic 139–168; BP diastolic 70–80; PULSE 53–103; RESP 16–21; TEMP 97.5–98.8; O2SAT 95–98
[2017-11-22] MEDS: DOCUSATE SODIUM 50 MG/SENNA 8.6 MG TAB PO SCH ×3 (00:30→22:38)
[2017-11-22] MEDS: SODIUM CHLORIDE 0.9% FLUSH 10 ML FLUSH IV FLUSH SCH ×3 (00:31→21:00)
[2017-11-22] MEDS: FAMOTIDINE 20 MG/2 ML VIAL IV PUSH SCH ×3 (00:31→22:37)
[2017-11-22] MEDS: ARTIFICIAL TEARS OPTH SOLN 15 ML BTL EACH EYE SCH ×5 (00:35→22:39)
[2017-11-22] MEDS: CHLORHEXIDINE GLUCONATE 2 % 1 PACK (2 CLOTHS) TOP SCH (00:38)
[2017-11-22] MEDS: INSULIN ASPART SUPPLEMENTAL SCALE SQ SCH ×4 (06:00→17:50)
[2017-11-22] MEDS: SODIUM CHLOR 0.9% 1000 ML INJ 1,000 ML IV SCH ×3 (06:04→22:36)
[2017-11-22] MEDS: AMIODARONE 200 MG TAB PO SCH (08:23)
[2017-11-22 08:30] LABS: BASOPHIL # 0.1 TH/MM3 (0-0.2); BASOPHIL % 0.4 % (0.0-2.0); EOSINOPHIL # 0.3 TH/MM3 (0-0.4); EOSINOPHIL % 1.7 % (0.0-4.0); HEMATOCRIT 40.2 % (39.0-51.0); HEMOGLOBIN 13.8 GM/DL (13.0-17.0); LYMPH % 12.4 % (9.0-44.0); LYMPHOCYTE # 1.9 TH/MM3 (1.0-4.8); MEAN CELL VOLUME 94.4 FL (80.0-100.0); MEAN CORPUSCULAR HEMOGLOBIN 32.4 PG (27.0-34.0); MEAN CORPUSCULAR HGB CONC 34.4 % (32.0-36.0); MEAN PLATELET VOLUME 10.1 FL (7.0-11.0); MONO % 8.4 % (0.0-8.0); MONOCYTE # 1.3 TH/MM3 (0-0.9); NEUT % 77.1 % (16.0-70.0); PLATELET COUNT 106 TH/MM3 (150-450); RED BLOOD COUNT 4.26 MIL/MM3 (4.50-5.90); RED CELL DISTRIBUTION WIDTH 12.5 % (11.6-17.2); WHITE BLOOD COUNT 15.6 TH/MM3 (4.0-11.0)
[2017-11-22 09:12] LABS: BICARBONATE 25.8 MEQ/L (21.0-32.0); CALCIUM 8.7 MG/DL (8.5-10.1); CREATININE 0.82 MG/DL (0.60-1.30)
--- NOTE | 2017-11-22 13:16 | HHI.PR ---
Subjective Remarks Did not pass the swallow evaluation. Now with the NG tube in place. He is sleepy. Had physical therapy is doing better. Has no chest pain or shortness of breath. Started tube feedings. Objective Vitals Vital Signs Date Time Temp Pulse Resp B/P (MAP) Pulse Ox O2 Delivery O2 Flow Rate FiO2 11/22/17 12:07 97 11/22/17 11:42 98.4 83 18 159/78 (105) 97 11/22/17 09:28 98.0 60 18 140/70 (93) 95 11/22/17 04:00 89 11/22/17 04:00 97.5 76 21 168/80 (109) 98 11/22/17 00:00 97.7 61 18 143/72 (95) 96 11/22/17 00:00 53 11/21/17 20:00 97.9 64 20 163/70 (101) 99 11/21/17 18:00 58 11/21/17 16:00 98.2 53 19 136/70 (92) 96 11/21/17 16:00 53 11/21/17 14:00 62 I/O 11/21/17 11/21/17 11/21/17 11/22/17 11/22/17 11/22/17 07:00 15:00 23:00 07:00 15:00 23:00 Intake Total 0 ml 221 ml 863 ml Output Total 1500 ml 550 ml Balance -1500 ml 221 ml 313 ml Intake Oral 0 ml 0 ml IV Total 221 ml 863 ml Output Urine Total 1500 ml 550 ml # Voids 0 2 # Bowel Movements 0 0 Result Diagram: 11/22/17 0757 11/22/17 0757 Imaging Last Impressions Abdomen X-Ray 11/21/17 0000 Signed Impressions: Service Date/Time: Tuesday, November 21, 2017 21:18 - CONCLUSION: NG tube tip into the distal stomach Collin Melissa MD Head CT 11/19/17 0000 Signed Impressions: Service Date/Time: Sunday, November 19, 2017 04:59 - CONCLUSION: No appreciable change in significant right MCA territory infarction. Lauryn Garsia MD Thyroid Ultrasound 11/17/17 0000 Signed Impressions: Service Date/Time: November 11:21 - CONCLUSION: Bilateral thyroid nodules. If these lesions have not been previously evaluated, fine-needle aspiration biopsy would be recommended on an outpatient elective basis Collin Melissa MD Cerebral Arteriogram 11/17/17 0000 Signed Impressions: Service Date/Time: November 02:03 - CONCLUSION: Right MCA embolectomy as above. Jayce Watt MD Brain MRI 11/17/17 0000 Signed Impressions: Service Date/Time: November 09:50 - CONCLUSION: 1. Acute infarction involving the right MCA territory which correlates to the finding on the CTA. No mass effect. There are scattered blood products throughout the infarct bed. Keshawn Dickson Jr., MD Neck CTA 11/16/17 2343 Signed Impressions: Service Date/Time: Thursday, November 16, 2017 23:53 - CONCLUSION: 1. Multinodular thyroid not mentioned above with thyroid enlargement, left greater than right and mild mass effect on the trachea. 2. 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 3. No evidence for hemodynamically significant stenosis of either internal carotid artery. 4. 5. The findings were discussed with Dr. Samaniego at 12: 6. 17 AM on November 17, 2017. Jarvis Dewitt MD Head CTA 11/16/17 2343 Signed Impressions: Service Date/Time: Thursday, November 16, 2017 23:53 - CONCLUSION: Right MCA occlusion. The findings were discussed with Dr. Samaniego, neurologist block mason at 12:17 AM on November 17, 2017. Jarvis Dewitt MD Objective Remarks GENERAL: Very pleasant 72-year-old male, appears in acute distress, somnolent on /off. CARDIOVASCULAR: Regular rate and rhythm, sinus rhythm on the monitor. No murmur rub or gallop appreciated. No JVD. RESPIRATORY: Breathing comfortably, no accessory muscle use. Clear, no adventitious sounds. GASTROINTESTINAL: Abdomen soft, non-tender, nondistended bowel sounds present. BS active. MUSCULOSKELETAL: Extremities without clubbing, cyanosis, or edema. Well perfused. NEUROLOGICAL: Somnolent, but will arouse to voice. Speech clear. Oriented to self, location, year. Left facial droop. Strength 5 out of 5 right upper extremity and right lower extremity. 1/5 left leg. Decreased sensation soft touch to left upper and left lower extremity. A/P Problem List: (1) Acute right MCA stroke ICD Code: I63.511 - Cerebral infarction due to unspecified occlusion or stenosis of right middle cerebral artery Status: Acute (2) Received intravenous tissue plasminogen activator (tPA) in emergency department ICD Code: Z92.82 - Status post administration of tPA (rtPA) in a different facility within the last 24 hours prior to admission to current facility Status: Acute Assessment and Plan NEURO: Acute ischemic stroke right MCA stroke Received TPA at midnight 11/17. Status post right M1 embolectomy by Dr. Watt 11/17, (2 passes of Penumbra catheter) Antihypertensive management to maintain systolic blood pressure less than 180, diastolic blood pressure less than 105. Avoid anticoagulant or antiplatelet therapy for 24 hours Monitor telemetry. Follow-up 2-D echo, with EF 40-45 % , lipid panel reviewed, hemoglobin A1c 9.6 CTA carotids negative for significant carotid occlusion. Speech therapy to evaluate swallow. PT/OT Neurology consult, Dr. Samaniego. Dense deficit persists left side DC 2% saline. Monitor sodium level RESP: Nasal cannula tolerate to maintain sat greater than 94% Will monitor for evidence of airway protection. Intubated if needed. Noted mild mass effect on the trachea due to thyroid goiter on CT scan. Controls airway well. CV: Monitor hemodynamics Labetalol/hydralazine as needed for systolic blood pressure greater than 180, diastolic blood pressure greater than 105 Troponin negative New a-fib -> converted with amiodarone. Check lytes Consult cardiology GI: Obesity NPO. Speech therapy to evaluate swallow again today 11/18 Famotidine for stress ulcer prophylaxis. FEN/RENAL: BPH Jaimes is in place. UA was not remarkable for significant hematuria. ID: Leukocytosis, likely reactive Monitor for signs and symptoms of infection. UA negative for markers of infection HEME: Follow-up CBC after 24 hours Not on antiplatelet or anticoagulant therapy. Received TPA at 2345 11/16 ENDO: Multi-nodular goiter CTA neck showed multinodular thyroid, left greater than right with mild mass effect on the trachea. Obtain thyroid ultrasound -> bilateral nodules. Acute hyperglycemia No known history of diabetes mellitus. Obtain hemoglobin A1c On to bedside glucose every 6 hours and initiate low-dose insulin sliding scale as indicated. Uncontrolled DM2 A1c of 9.5 on accuchecks , ISSD, patient educator. Change tube feedings to Glucerna, 1.5 . Monitor PROPH: SCDs for DVT prophylaxis. Avoid pharmacologic DVT prophylaxis for 24 hours following systemic TPA. Famotidine IV for stress ulcer prophylaxis. ACCESS: Peripheral IV providing adequate access at this time. FULL CODE Persistent with left sided deficit consistent with CT findings of large right hemisphere infarction. Continued non-dominant hemisphere swelling is expected, minimized with hypertonic saline and low dose diuretic. DC 2% NS, start on 0.9 NS . Monitor PT/OT/SP ff Discussed with family, patient, nurse Ashia Scruggs MD Nov 22, 2017 13:16
[2017-11-22] MEDS ORDERED: POTASSIUM CHLORIDE 10 MEQ CONTROLLED RELEASE TAB PO ONE (14:45)
[2017-11-22] MEDS ORDERED: POTASSIUM BICARBONATE 25 MEQ EFFERVESCENT TAB PO ONE (17:15)
--- NOTE | 2017-11-22 17:38 | HHI.PR ---
Review/Management Diagnosis right MCA stroke s/p iv TPA and interventional thrombectomy new onset afib Plan continue current care Unable to anticoagulate due to component of subarachnoid hemorrhage Diagnosis/Plan: Daily Summary 11/18 ct brain and mri brain seen left hemiparesis remains same awakens with stim and follows commands as yesterday spoke with RN no blood thinners for now watch for more cerebral edema and mass effect dr Eduardo covering weekend plan foor ct brain f/u tomorrow 11/22 family at bedside seems stable, alert and anxious to swallow left hemiparesis is severe but has motor about 1-2/5 leg rehab care if remains stable in a week or so would start anticoagulation, will need repeat ct brain before to be sure stable Subjective Subjective Comments No acute events reported No headache Active Medications Current Medications Medications (Trade) Dose Ordered Sig/Vin Route Start Time Stop Time Status Last Admin (NS Flush) 2 ml UNSCH PRN IV FLUSH 11/17/17 04:30 (NS Flush) 2 ml BID IV FLUSH 11/17/17 09:00 11/22/17 00:31 (Pepcid Inj) 20 mg Q12HR IV PUSH 11/17/17 09:00 11/22/17 08:24 (Zofran Inj) 4 mg Q6H PRN IV PUSH 11/17/17 04:30 (Albuterol Neb) 2.5 mg Q2HR NEB PRN INH 11/17/17 04:30 Miscellaneous Information 1 Q361D XX 11/17/17 04:30 (Chlorhexidine 2% Cloth) 3 pack Taper DAILY@04 TOP 11/18/17 04:00 11/14/18 03:59 (Chlorhexidine 2% Cloth) 3 pack UNSCH PRN TOP 11/17/17 04:30 (Estefany-Colace) 1 tab BID PO 11/17/17 09:00 11/22/17 08:23 (Milk Of Magnesia Liq) 30 ml Q12H PRN PO 11/17/17 04:30 (Senokot) 17.2 mg Q12H PRN PO 11/17/17 04:30 (Dulcolax Supp) 10 mg DAILY PRN RECTAL 11/17/17 04:30 (Lactulose Liq) 30 ml DAILY PRN PO 11/17/17 04:30 (Trandate Inj) 10 mg Q4H PRN IV PUSH 11/17/17 04:30 (Apresoline Inj) 10 mg Q4H PRN IV PUSH 11/17/17 04:30 (D50w (Vial) Inj) 50 ml UNSCH PRN IV PUSH 11/17/17 04:30 (Glucagon Inj) 1 mg UNSCH PRN OTHER 11/17/17 04:30 (NovoLOG SUPPLEMENTAL SCALE) 1 Q6H SQ 11/17/17 06:00 11/22/17 14:27 (Tylenol Supp) 650 mg Q4H PRN RECTAL 11/17/17 05:30 (Tears Naturale Opth Soln) 1 drop Q6H EACH EYE 11/19/17 17:00 11/22/17 14:28 (Cordarone) 200 mg DAILY PO 11/21/17 09:00 12/04/17 09:01 11/22/17 08:23 Sodium Chloride 1,000 ml @ 84 mls/hr [id number] IV 11/21/17 09:45 11/22/17 06:04 Allergies Allergies Coded Allergies No Known Allergies (Unverified11/17/17) Exam I&O / VS Vital Signs Date Time Temp Pulse Resp B/P (MAP) Pulse Ox O2 Delivery O2 Flow Rate FiO2 11/22/17 12:07 97 11/22/17 11:42 98.4 83 18 159/78 (105) 97 11/22/17 09:28 98.0 60 18 140/70 (93) 95 11/22/17 04:00 89 11/22/17 04:00 97.5 76 21 168/80 (109) 98 11/22/17 00:00 97.7 61 18 143/72 (95) 96 11/22/17 00:00 53 11/21/17 20:00 97.9 64 20 163/70 (101) 99 11/21/17 18:00 58 Objective Radiology Results Last 48 hours Impressions Abdomen X-Ray 11/21/17 0000 Signed Impressions: Service Date/Time: Tuesday, November 21, 2017 21:18 - CONCLUSION: NG tube tip into the distal stomach Collin Melissa MD Micro and Labs Laboratory Tests Test 11/22/17 07:57 White Blood Count 15.6 Red Blood Count 4.26 Hemoglobin 13.8 Hematocrit 40.2 Mean Corpuscular Volume 94.4 Mean Corpuscular Hemoglobin 32.4 Mean Corpuscular Hemoglobin Concent 34.4 Red Cell Distribution Width 12.5 Platelet Count 106 Mean Platelet Volume 10.1 Neutrophils (%) (Auto) 77.1 Lymphocytes (%) (Auto) 12.4 Monocytes (%) (Auto) 8.4 Eosinophils (%) (Auto) 1.7 Basophils (%) (Auto) 0.4 Neutrophils # (Auto) 12.0 Lymphocytes # (Auto) 1.9 Monocytes # (Auto) 1.3 Eosinophils # (Auto) 0.3 Basophils # (Auto) 0.1 CBC Comment DIFF FINAL Differential Comment Blood Urea Nitrogen 19 Creatinine 0.82 Random Glucose 199 Calcium Level 8.7 Sodium Level 147 Potassium Level 3.3 Chloride Level 114 Carbon Dioxide Level 25.8 Anion Gap 7 Estimat Glomerular Filtration Rate 92 Bri Samaniego MD Nov 22, 2017 17:38
[2017-11-23] VITALS (14 sets, daily range): BP systolic 125–171; BP diastolic 63–87; PULSE 71–131; RESP 18–20; TEMP 97.2–99.8; O2SAT 95–98
[2017-11-23] MEDS: INSULIN ASPART SUPPLEMENTAL SCALE SQ SCH ×4 (01:17→18:38)
[2017-11-23] MEDS: CHLORHEXIDINE GLUCONATE 2 % 1 PACK (2 CLOTHS) TOP SCH (01:21)
[2017-11-23] MEDS: ARTIFICIAL TEARS OPTH SOLN 15 ML BTL EACH EYE SCH ×3 (06:09→17:12)
--- NOTE | 2017-11-23 08:31 | PD.CARD.PN ---
Subjective Subjective Remarks Resting comfortably. Denies CP, palpitations, dizziness, dyspnea. Slept well. Objective Medications Item Value Date Time Amiodarone HCl 200 mg 11/21/17 0900 (Cordarone) DAILY/PO 11/22/17 0823 Current Medications Medications (Trade) Dose Ordered Sig/Vin Route Start Time Stop Time Status Last Admin (NS Flush) 2 ml UNSCH PRN IV FLUSH 11/17/17 04:30 (NS Flush) 2 ml BID IV FLUSH 11/17/17 09:00 11/22/17 00:31 (Pepcid Inj) 20 mg Q12HR IV PUSH 11/17/17 09:00 11/22/17 22:37 (Zofran Inj) 4 mg Q6H PRN IV PUSH 11/17/17 04:30 (Albuterol Neb) 2.5 mg Q2HR NEB PRN INH 11/17/17 04:30 Miscellaneous Information 1 Q361D XX 11/17/17 04:30 (Chlorhexidine 2% Cloth) Taper DAILY@04 TOP 11/18/17 04:00 11/14/18 03:59 (Chlorhexidine 2% Cloth) 3 pack UNSCH PRN TOP 11/17/17 04:30 (Estefany-Colace) 1 tab BID PO 11/17/17 09:00 11/22/17 22:38 (Milk Of Magnesia Liq) 30 ml Q12H PRN PO 11/17/17 04:30 (Senokot) 17.2 mg Q12H PRN PO 11/17/17 04:30 (Dulcolax Supp) 10 mg DAILY PRN RECTAL 11/17/17 04:30 (Lactulose Liq) 30 ml DAILY PRN PO 11/17/17 04:30 (Trandate Inj) 10 mg Q4H PRN IV PUSH 11/17/17 04:30 (Apresoline Inj) 10 mg Q4H PRN IV PUSH 11/17/17 04:30 (D50w (Vial) Inj) 50 ml UNSCH PRN IV PUSH 11/17/17 04:30 (Glucagon Inj) 1 mg UNSCH PRN OTHER 11/17/17 04:30 (NovoLOG SUPPLEMENTAL SCALE) 1 Q6H SQ 11/17/17 06:00 11/23/17 06:08 (Tylenol Supp) 650 mg Q4H PRN RECTAL 11/17/17 05:30 (Tears Naturale Opth Soln) 1 drop Q6H EACH EYE 11/19/17 17:00 11/23/17 06:09 (Cordarone) 200 mg DAILY PO 11/21/17 09:00 12/04/17 09:01 11/22/17 08:23 Sodium Chloride 1,000 ml @ 84 mls/hr [id number] IV 11/21/17 09:45 11/22/17 22:36 Vital Signs / I&O Vital Signs Date Time Temp Pulse Resp B/P (MAP) Pulse Ox O2 Delivery O2 Flow Rate FiO2 11/23/17 08:05 97.4 80 18 171/87 (115) 96 11/23/17 05:15 99.5 73 20 164/87 (112) 96 11/23/17 04:00 71 11/23/17 02:49 81 11/23/17 01:00 98.8 77 19 154/85 (108) 98 11/23/17 00:00 82 11/22/17 20:57 98.8 62 18 148/71 (96) 97 11/22/17 20:00 65 11/22/17 16:00 103 11/22/17 16:00 97.7 102 16 139/76 (97) 95 11/22/17 12:07 97 11/22/17 12:00 58 11/22/17 11:42 98.4 83 18 159/78 (105) 97 11/22/17 09:28 98.0 60 18 140/70 (93) 95 I/O 11/22/17 11/22/17 11/22/17 11/23/17 11/23/17 11/23/17 07:00 15:00 23:00 07:00 15:00 23:00 Intake Total 210 ml 446 ml Balance 210 ml 446 ml IV Total 210 ml Tube Feeding 446 ml # Voids 2 3 Physical Exam GENERAL: Well developed, well nourished. No acute distress. HEENT: Jugular venous pressure is normal. CHEST: Lungs clear to auscultation anteriorly. CARDIAC: Regular rate and rhythm without S3, S4, or murmur. ABDOMEN: Soft, nontender, no hepatosplenomegaly. Bowel sounds present. EXTREMITIES: No clubbing, cyanosis, or edema. Assessment and Plan Problem List: (1) Paroxysmal atrial fibrillation ICD Codes: I48.0 - Paroxysmal atrial fibrillation Status: Acute Plan: Continued salvoes of atrial fibrillation with mildly increased ventricular response. Patient asymptomatic with the dysrhythmia. In sinus rhythm this morning. REC increase Amiodarone dosing to 400 mg qd add carvedilol as for his cardiomyopathy as noted previously, given his high thromboembolic risk, recommend anticoagulation therapy when possible (2) Cardiomyopathy ICD Codes: I42.9 - Cardiomyopathy, unspecified Status: Chronic Plan: Echo this admission reviewed, agree EF 40-45% with mildly dilated LV and global hypokinesis. Suspect non-ischemic cardiomyopathy. No acute CHF. REC start carvedilol and enalapril Code Status full code Discussed Condition With patient Problem Qualifiers (1) Cardiomyopathy: Qualified Codes: I42.9 - Cardiomyopathy, unspecified Charles Urbina MD Nov 23, 2017 08:31
[2017-11-23 09:17] LABS: AUTOMATED NEUTROPHIL # 14.5 TH/MM3 (1.8-7.7); BASOPHIL # 0.1 TH/MM3 (0-0.2); BASOPHIL % 0.7 % (0.0-2.0); EOSINOPHIL # 0.4 TH/MM3 (0-0.4); EOSINOPHIL % 1.9 % (0.0-4.0); HEMATOCRIT 40.7 % (39.0-51.0); HEMOGLOBIN 14.1 GM/DL (13.0-17.0); LYMPH % 10.9 % (9.0-44.0); MEAN CELL VOLUME 94.5 FL (80.0-100.0); MEAN CORPUSCULAR HEMOGLOBIN 32.6 PG (27.0-34.0); MEAN CORPUSCULAR HGB CONC 34.6 % (32.0-36.0); MEAN PLATELET VOLUME 10.2 FL (7.0-11.0); MONO % 8.8 % (0.0-8.0); MONOCYTE # 1.6 TH/MM3 (0-0.9); NEUT % 77.7 % (16.0-70.0); PLATELET COUNT 128 TH/MM3 (150-450); RED BLOOD COUNT 4.31 MIL/MM3 (4.50-5.90); RED CELL DISTRIBUTION WIDTH 12.6 % (11.6-17.2); WHITE BLOOD COUNT 18.7 TH/MM3 (4.0-11.0)
[2017-11-23 09:50] LABS: BICARBONATE 26.9 MEQ/L (21.0-32.0); CALCIUM 8.7 MG/DL (8.5-10.1); CREATININE 0.77 MG/DL (0.60-1.30); MAGNESIUM 2.6 MG/DL (1.5-2.5)
[2017-11-23] MEDS: FAMOTIDINE 20 MG/2 ML VIAL IV PUSH SCH ×2 (09:55→21:47)
[2017-11-23] MEDS: DOCUSATE SODIUM 50 MG/SENNA 8.6 MG TAB PO SCH ×2 (09:56→21:47)
[2017-11-23] MEDS: CARVEDILOL 3.125 MG TAB PO SCH ×2 (09:56→21:47)
[2017-11-23] MEDS: AMIODARONE 200 MG TAB PO SCH (09:56)
[2017-11-23] MEDS: SODIUM CHLORIDE 0.9% FLUSH 10 ML FLUSH IV FLUSH SCH ×2 (09:57→21:47)
[2017-11-23] MEDS: ENALAPRIL MALEATE 2.5 MG TAB PO SCH ×2 (10:25→21:47)
[2017-11-23] MEDS: SODIUM CHLOR 0.9% 1000 ML INJ 1,000 ML IV SCH ×2 (10:26→21:20)
--- NOTE | 2017-11-23 16:10 | PD.CONS ---
HPI History of Present Illness This is a 72 year old who presented to the [facility] emergency department on Nov 17 with confusion, aphasia, and left hemiparesis. Pt was found to have right MCA occlusion on CTA, received TPA. Our service has been consulted for PEG tube placement. Speech therapy has evaluated pt and noted that pt has severe oropharyngeal dysphagia with high risk of aspiration, they have recommended NPO with tube feeding only. Pt currently receiving tube feeding through NG tube, Glucerna 1.5 at 55 mL/hr. KUB (11/21) --> NG tube tip into the distal stomach. (Esther England) PFSH Coded Allergies: No Known Allergies (Unverified , 11/17/17) Review of Systems Unable to obtain (Esther England) GI Exam Vitals I&O Vital Signs Date Time Temp Pulse Resp B/P (MAP) Pulse Ox O2 Delivery O2 Flow Rate FiO2 11/23/17 15:40 99.8 100 18 131/70 (90) 96 11/23/17 14:34 131 11/23/17 12:06 95 11/23/17 12:02 99.0 93 18 142/83 (102) 95 11/23/17 08:05 97.4 80 18 171/87 (115) 96 11/23/17 05:15 99.5 73 20 164/87 (112) 96 11/23/17 04:00 71 11/23/17 02:49 81 11/23/17 01:00 98.8 77 19 154/85 (108) 98 11/23/17 00:00 82 11/22/17 20:57 98.8 62 18 148/71 (96) 97 11/22/17 20:00 65 I/O 11/22/17 11/22/17 11/22/17 11/23/17 11/23/17 11/23/17 06:59 14:59 22:59 06:59 14:59 22:59 Intake Total 210 ml 446 ml 1000 ml Balance 210 ml 446 ml 1000 ml Intake Oral 0 ml IV Total 210 ml 1000 ml Tube Feeding 446 ml # Voids 2 3 4 # Bowel Movements 0 Imaging Last Impressions Abdomen X-Ray 11/21/17 0000 Signed Impressions: Service Date/Time: Tuesday, November 21, 2017 21:18 - CONCLUSION: NG tube tip into the distal stomach Collin Melissa MD Head CT 11/19/17 Signed Impressions: Service Date/Time: Sunday, November 19, 2017 04:59 - CONCLUSION: No appreciable change in significant right MCA territory infarction. Lauryn Garsia MD Thyroid Ultrasound 11/17/17 Signed Impressions: Service Date/Time: November 11:21 - CONCLUSION: Bilateral thyroid nodules. If these lesions have not been previously evaluated, fine-needle aspiration biopsy would be recommended on an outpatient elective basis Collin Melissa MD Cerebral Arteriogram 11/17/17 Signed Impressions: Service Date/Time: November 02:03 - CONCLUSION: Right MCA embolectomy as above. Jayce Watt MD Brain MRI 11/17/17 Signed Impressions: Service Date/Time: November 09:50 - CONCLUSION: 1. Acute infarction involving the right MCA territory which correlates to the finding on the CTA. No mass effect. There are scattered blood products throughout the infarct bed. Keshawn Dickson Jr., MD Neck CTA [id number] Signed Impressions: Service Date/Time: Thursday, November 16, 2017 23:53 - CONCLUSION: 1. Multinodular thyroid not mentioned above with thyroid enlargement, left greater than right and mild mass effect on the trachea. 2. 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 3. No evidence for hemodynamically significant stenosis of either internal carotid artery. 4. 5. The findings were discussed with Dr. Samaniego at 12: 6. 17 AM on November 17, 2017. Jarvis Dewitt MD Head CTA [id number] Signed Impressions: Service Date/Time: Thursday, November 16, 2017 23:53 - CONCLUSION: Right MCA occlusion. The findings were discussed with Dr. Samaniego, neurologist telephone surveyor at 12:17 AM on November 17, 2017. Jarvis Dewitt MD Laboratory Test 11/23/17 08:20 11/23/17 08:52 Blood Urea Nitrogen 16 MG/DL Creatinine 0.77 MG/DL Random Glucose 232 MG/DL Calcium Level 8.7 MG/DL Magnesium Level 2.6 MG/DL Sodium Level 144 MEQ/L Potassium Level 3.6 MEQ/L Chloride Level 111 MEQ/L Carbon Dioxide Level 26.9 MEQ/L Anion Gap 6 MEQ/L Estimat Glomerular Filtration Rate 99 ML/MIN White Blood Count 18.7 TH/MM3 Red Blood Count 4.31 MIL/MM3 Hemoglobin 14.1 GM/DL Hematocrit 40.7 % Mean Corpuscular Volume 94.5 FL Mean Corpuscular Hemoglobin 32.6 PG Mean Corpuscular Hemoglobin Concent 34.6 % Red Cell Distribution Width 12.6 % Platelet Count 128 TH/MM3 Mean Platelet Volume 10.2 FL Neutrophils (%) (Auto) 77.7 % Lymphocytes (%) (Auto) 10.9 % Monocytes (%) (Auto) 8.8 % Eosinophils (%) (Auto) 1.9 % Basophils (%) (Auto) 0.7 % Neutrophils # (Auto) 14.5 TH/MM3 Lymphocytes # (Auto) 2.0 TH/MM3 Monocytes # (Auto) 1.6 TH/MM3 Eosinophils # (Auto) 0.4 TH/MM3 Basophils # (Auto) 0.1 TH/MM3 CBC Comment DIFF FINAL Differential Comment Physical Examination HEENT: Normocephalic; atraumatic CHEST: Even/unlabored CARDIAC: Irregularly irregular ABDOMEN: Soft, nondistended, bowel sounds active SKIN: Pale MASONRY INSPECTOR: Lethargic, does not awaken during my exam (Esther England) Assessment and Plan Plan Assessment: - Dysphagia secondary to recent CVA- R MCA occlusion S/P TPA on Nov 17 Speech therapy evaluation noted pt to have severe oropharyngeal dysphagia with high risk of aspiration. They recommended NPO with TF only and continued dysphagia therapy. Pt has been very lethargic and unable to cooperate with speech therapy. GI consulted for PEG tube placement. Pt not on blood thinners, plan for PEG tomorrow - Nutrition recommends Jevity 1.5 at goal rate 55mL/hr Plan: PEG tomorrow Obtain consent Hold TF after MN Ancef 1gm telephone surveyor Continue with dysphagia therapy Further recommendations based on clinical course Pt has been seen and examined by myself and Dr. Santamaria and this note is written on his behalf (Esther England) Physician Comments Seen and examined with PLUMBER HELPER, egd/peg discussed with pt and planned for tomorrow. Hold TF after midnight tonite. Ancef telephone surveyor to gi. Thank you (Maddie Santamaria MD) Esther England Nov 23, 2017 16:10 Maddie Santamaria MD Nov 23, 2017 17:00
--- NOTE | 2017-11-23 16:29 | HHI.PR ---
Subjective Remarks Failed swallow eval. Discussed PEG tube placement. no new motor or sensory deficit. Getting tired easily. No n/v/d/c. Denies chest pain or sob. No fever or chills. Objective Vitals Vital Signs Date Time Temp Pulse Resp B/P (MAP) Pulse Ox O2 Delivery O2 Flow Rate FiO2 11/23/17 15:40 99.8 100 18 131/70 (90) 96 11/23/17 14:34 131 11/23/17 12:06 95 11/23/17 12:02 99.0 93 18 142/83 (102) 95 11/23/17 08:05 97.4 80 18 171/87 (115) 96 11/23/17 05:15 99.5 73 20 164/87 (112) 96 11/23/17 04:00 71 11/23/17 02:49 81 11/23/17 01:00 98.8 77 19 154/85 (108) 98 11/23/17 00:00 82 11/22/17 20:57 98.8 62 18 148/71 (96) 97 11/22/17 20:00 65 I/O 11/22/17 11/22/17 11/22/17 11/23/17 11/23/17 11/23/17 07:00 15:00 23:00 07:00 15:00 23:00 Intake Total 210 ml 446 ml 1000 ml Balance 210 ml 446 ml 1000 ml Intake Oral 0 ml IV Total 210 ml 1000 ml Tube Feeding 446 ml # Voids 2 3 4 # Bowel Movements 0 Result Diagram: 11/23/17 0852 11/23/17 0820 Imaging Last Impressions Abdomen X-Ray 11/21/17 0000 Signed Impressions: Service Date/Time: Tuesday, November 21, 2017 21:18 - CONCLUSION: NG tube tip into the distal stomach Collin Melissa MD Head CT 11/19/17 0000 Signed Impressions: Service Date/Time: Sunday, November 19, 2017 04:59 - CONCLUSION: No appreciable change in significant right MCA territory infarction. Lauryn Garsia MD Thyroid Ultrasound 11/17/17 0000 Signed Impressions: Service Date/Time: November 11:21 - CONCLUSION: Bilateral thyroid nodules. If these lesions have not been previously evaluated, fine-needle aspiration biopsy would be recommended on an outpatient elective basis Collin Melissa MD Cerebral Arteriogram 11/17/17 0000 Signed Impressions: Service Date/Time: November 02:03 - CONCLUSION: Right MCA embolectomy as above. Jayce Watt MD Brain MRI 11/17/17 0000 Signed Impressions: Service Date/Time: November 09:50 - CONCLUSION: 1. Acute infarction involving the right MCA territory which correlates to the finding on the CTA. No mass effect. There are scattered blood products throughout the infarct bed. Keshawn Dickson Jr., MD Neck CTA 11/16/173 Signed Impressions: Service Date/Time: Thursday, November 16, 2017 23:53 - CONCLUSION: 1. Multinodular thyroid not mentioned above with thyroid enlargement, left greater than right and mild mass effect on the trachea. 2. 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 3. No evidence for hemodynamically significant stenosis of either internal carotid artery. 4. 5. The findings were discussed with Dr. Samaniego at 12: 6. 17 AM on November 17, 2017. Jarvis Dewitt MD Head CTA 11/16/173 Signed Impressions: Service Date/Time: Thursday, November 16, 2017 23:53 - CONCLUSION: Right MCA occlusion. The findings were discussed with Dr. Samaniego, neurologist cutting and boning supervisor at 12:17 AM on November 17, 2017. Jarvis Dewitt MD Objective Remarks GENERAL: Very pleasant 72-year-old male, appears in acute distress, somnolent on /off. NG tube in place. CARDIOVASCULAR: Regular rate and rhythm, sinus rhythm on the monitor. No murmur rub or gallop appreciated. No JVD. RESPIRATORY: Breathing comfortably, no accessory muscle use. Clear, no adventitious sounds. GASTROINTESTINAL: Abdomen soft, non-tender, nondistended bowel sounds present. BS active. MUSCULOSKELETAL: Extremities without clubbing, cyanosis, or edema. Well perfused. NEUROLOGICAL: Somnolent, but will arouse to voice. Speech clear. Oriented to self, location, year. Left facial droop. Strength 5 out of 5 right upper extremity and right lower extremity. 1/5 left leg. Decreased sensation soft touch to left upper and left lower extremity. A/P Problem List: (1) Acute right MCA stroke ICD Code: I63.511 - Cerebral infarction due to unspecified occlusion or stenosis of right middle cerebral artery Status: Acute (2) Received intravenous tissue plasminogen activator (tPA) in emergency department ICD Code: Z92.82 - Status post administration of tPA (rtPA) in a different facility within the last 24 hours prior to admission to current facility Status: Acute Assessment and Plan NEURO: Acute ischemic stroke right MCA stroke Received TPA at midnight 11/17. Can't have anticoagulation at this time. Neuro ff. POss start antocoagulation in 1 week or so, need repeat CT head before starting anticoagulation and clearance from neurology Status post right M1 embolectomy by Dr. Watt 11/17, (2 passes of Penumbra catheter) Antihypertensive management to maintain systolic blood pressure less than 180, diastolic blood pressure less than 105. Avoid anticoagulant or antiplatelet therapy for 24 hours Monitor telemetry. Follow-up 2-D echo, with EF 40-45 % , lipid panel reviewed, hemoglobin A1c 9.6 CTA carotids negative for significant carotid occlusion. Speech therapy to evaluate swallow. PT/OT Neurology consult, Dr. Samaniego. Dense deficit persists left side DC 2% saline. Monitor sodium level RESP: Nasal cannula tolerate to maintain sat greater than 94% Will monitor for evidence of airway protection. Intubated if needed. Noted mild mass effect on the trachea due to thyroid goiter on CT scan. Controls airway well. CV: Monitor hemodynamics Labetalol/hydralazine as needed for systolic blood pressure greater than 180, diastolic blood pressure greater than 105 Troponin negative New a-fib -> converted with amiodarone. Monitor lytes Consult cardiology GI: Obesity NPO. Speech therapy ff, discussed with ST. Patient has NGT, however persistently failed swallow evaluation. Consult GI for PEG tube placement. Discussed with the patient and family. Famotidine for stress ulcer prophylaxis. FEN/RENAL: BPH Jaimes is in place. UA was not remarkable for significant hematuria. ID: Leukocytosis, likely reactive Monitor for signs and symptoms of infection. UA negative for markers of infection HEME: Follow-up CBC after 24 hours Not on antiplatelet or anticoagulant therapy. Received TPA at 2345 11/16 ENDO: Multi-nodular goiter CTA neck showed multinodular thyroid, left greater than right with mild mass effect on the trachea. Obtain thyroid ultrasound -> bilateral nodules. Acute hyperglycemia No known history of diabetes mellitus. Obtain hemoglobin A1c On to bedside glucose every 6 hours and initiate low-dose insulin sliding scale as indicated. Uncontrolled DM2 A1c of 9.5. Aj AMIN, denice , [facility], solar energy sales specialist. Tube feedings Glucerna, 1.5 . Monitor. Cigarette Machine Filler also consult PROPH: SCDs for DVT prophylaxis. Avoid pharmacologic DVT prophylaxis for 24 hours following systemic TPA. Famotidine IV for stress ulcer prophylaxis. ACCESS: Peripheral IV providing adequate access at this time. FULL CODE Persistent with left sided deficit consistent with CT findings of large right hemisphere infarction. Continued non-dominant hemisphere swelling is expected, minimized with hypertonic saline and low dose diuretic. DC 2% NS, start on 0.9 NS . Monitor PT/OT/SP ff Failed swallow evaluation on NG tube, discused with the patient and family again patient will need PEG tube placement. Consult GI for PEG tube placement. Discussed with family, patient, nurse DC plan:Patient needs PEG tube. Discussed with [facility]. The patient is evaluated for [facility], likely DC to [facility] after PEG tube placement and if tolerating PEG tube. Ashia Scruggs MD Nov 23, 2017 16:29
[2017-11-23] MEDS ORDERED: LACTATED RINGER'S 1000 ML IV PRN (20:00)
[2017-11-23] MEDS ORDERED: SODIUM CHLORID 0.9% 500 ML IV PRN (20:00)
[2017-11-23] MEDS ORDERED: CHLORHEXIDINE GLUCONATE 2 % 1 PACK (2 CLOTHS) TOPICAL PRN (20:15)
[2017-11-23] MEDS ORDERED: POVIDONE IODINE 5% (ANTISEPSIS KIT) 4 APPLICATIONS EACH NARE PRN (20:15)
[2017-11-23] MEDS ORDERED: METOPROLOL TARTRATE 25 MG TAB PO PRN (20:15)
[2017-11-24] VITALS (11 sets, daily range): BP systolic 119–144; BP diastolic 62–73; PULSE 64–73; RESP 17–20; TEMP 97.8–98.7; O2SAT 94–98
[2017-11-24] MEDS: ARTIFICIAL TEARS OPTH SOLN 15 ML BTL EACH EYE SCH ×5 (00:15→22:05)
[2017-11-24] MEDS: INSULIN ASPART SUPPLEMENTAL SCALE SQ SCH ×4 (00:19→18:00)
[2017-11-24] MEDS: CHLORHEXIDINE GLUCONATE 2 % 1 PACK (2 CLOTHS) TOP SCH (04:00)
[2017-11-24 07:32] LABS: AUTOMATED NEUTROPHIL # 13.4 TH/MM3 (1.8-7.7); BASOPHIL # 0.1 TH/MM3 (0-0.2); BASOPHIL % 0.4 % (0.0-2.0); EOSINOPHIL # 0.4 TH/MM3 (0-0.4); EOSINOPHIL % 2.1 % (0.0-4.0); HEMATOCRIT 38.7 % (39.0-51.0); HEMOGLOBIN 13.3 GM/DL (13.0-17.0); LYMPH % 13.5 % (9.0-44.0); LYMPHOCYTE # 2.4 TH/MM3 (1.0-4.8); MEAN CELL VOLUME 93.3 FL (80.0-100.0); MEAN CORPUSCULAR HEMOGLOBIN 32.2 PG (27.0-34.0); MEAN CORPUSCULAR HGB CONC 34.5 % (32.0-36.0); MEAN PLATELET VOLUME 10.1 FL (7.0-11.0); MONO % 9.6 % (0.0-8.0); MONOCYTE # 1.7 TH/MM3 (0-0.9); NEUT % 74.4 % (16.0-70.0); PLATELET COUNT 151 TH/MM3 (150-450); RED BLOOD COUNT 4.14 MIL/MM3 (4.50-5.90); RED CELL DISTRIBUTION WIDTH 12.8 % (11.6-17.2); WHITE BLOOD COUNT 18.1 TH/MM3 (4.0-11.0)
[2017-11-24 07:40] LABS: BICARBONATE 25.7 MEQ/L (21.0-32.0); CALCIUM 8.1 MG/DL (8.5-10.1); CREATININE 0.63 MG/DL (0.60-1.30)
--- NOTE | 2017-11-24 08:41 | PD.CARD.PN ---
Subjective Subjective Remarks Resting comfortably. Denies CP, palpitations, dizziness, dyspnea, nausea. Slept well. Objective Medications Item Value Date Time Carvedilol 3.125 mg 11/23/17 0900 (Coreg) Q12HR/PO 11/23/172146 Enalapril Maleate 2.5 mg 11/23/17 09 (Vasotec) BID/PO 11/23/172146 Amiodarone HCl 400 mg 11/23/17899 (Cordarone) DAILY/PO 11/23/17 0956 Current Medications Medications (Trade) Dose Ordered Sig/Vin Route Start Time Stop Time Status Last Admin (NS Flush) 2 ml UNSCH PRN IV FLUSH 11/17/17 04:30 (NS Flush) 2 ml BID IV FLUSH 11/17/17 09:00 11/23/17 21:47 (Pepcid Inj) 20 mg Q12HR IV PUSH 11/17/17 09:00 11/23/17 21:47 (Zofran Inj) 4 mg Q6H PRN IV PUSH 11/17/17 04:30 (Albuterol Neb) 2.5 mg Q2HR NEB PRN INH 11/17/17 04:30 Miscellaneous Information 1 Q361D XX 11/17/17 04:30 (Chlorhexidine 2% Cloth) Taper DAILY@04 TOP 11/18/17 04:00 11/14/18 03:59 (Chlorhexidine 2% Cloth) 3 pack UNSCH PRN TOP 11/17/17 04:30 (Estefany-Colace) 1 tab BID PO 11/17/17 09:00 11/23/17 21:47 (Milk Of Magnesia Liq) 30 ml Q12H PRN PO 11/17/17 04:30 (Senokot) 17.2 mg Q12H PRN PO 11/17/17 04:30 (Dulcolax Supp) 10 mg DAILY PRN RECTAL 11/17/17 04:30 (Lactulose Liq) 30 ml DAILY PRN PO 11/17/17 04:30 (Trandate Inj) 10 mg Q4H PRN IV PUSH 11/17/17 04:30 (Apresoline Inj) 10 mg Q4H PRN IV PUSH 11/17/17 04:30 (D50w (Vial) Inj) 50 ml UNSCH PRN IV PUSH 11/17/17 04:30 (Glucagon Inj) 1 mg UNSCH PRN OTHER 11/17/17 04:30 (NovoLOG SUPPLEMENTAL SCALE) 1 Q6H SQ 11/17/17 06:00 11/24/17 05:12 (Tylenol Supp) 650 mg Q4H PRN RECTAL 11/17/17 05:30 (Tears Naturale Opth Soln) 1 drop Q6H EACH EYE 11/19/17 17:00 11/24/17 05:09 Sodium Chloride 1,000 ml @ 84 mls/hr [id number] IV 11/21/17 09:45 11/23/17 10:26 (Cordarone) 400 mg DAILY PO 11/23/17 09:00 12/05/17 09:01 11/23/17 09:56 (Coreg) 3.125 mg Q12HR PO 11/23/17 09:00 11/23/17 21:47 (Vasotec) 2.5 mg BID PO 11/23/17 09:00 11/23/17 21:47 Cefazolin Sodium 1000 mg/Sodium Chloride 100 ml @ 200 mls/hr ENGAGEMENT SPECIALIST IV 11/23/17 16:30 11/26/17 16:29 Lactated Ringer's 1,000 ml @ 30 mls/hr Q24H PRN IV 11/23/17 20:00 11/26/17 19:59 Sodium Chloride 500 ml @ 30 mls/hr [id number] PRN IV 11/23/17 20:00 11/26/17 19:59 (Lopressor) 25 mg ENGAGEMENT SPECIALIST PRN PO 11/23/17 20:15 11/26/17 20:14 (Betadine 5% Antisepsis Kit) 1 applic ENGAGEMENT SPECIALIST PRN EACH NARE 11/23/17 20:15 11/26/17 20:14 (Chlorhexidine 2% Cloth) 3 pack ENGAGEMENT SPECIALIST PRN TOPICAL 11/23/17 20:15 11/26/17 20:14 Vital Signs / I&O Vital Signs Date Time Temp Pulse Resp B/P (MAP) Pulse Ox O2 Delivery O2 Flow Rate FiO2 11/24/17 08:23 97.9 72 20 130/63 (85) 94 11/24/17 05:10 97.8 72 18 144/73 (96) 94 11/24/17 04:30 73 11/24/17 01:45 98.6 72 20 131/68 (89) 94 11/24/17 00:30 68 11/23/17 20:56 97.2 76 20 125/63 (83) 96 11/23/17 20:30 78 11/23/17 17:41 96 21 11/23/17 16:31 101 11/23/17 15:40 99.8 100 18 131/70 (90) 96 11/23/17 14:34 131 11/23/17 12:06 95 11/23/17 12:02 99.0 93 18 142/83 (102) 95 I/O 11/23/17 11/23/17 11/23/17 11/24/17 11/24/17 11/24/17 07:00 15:00 23:00 07:00 15:00 23:00 Intake Total 446 ml 1000 ml Output Total 450 ml Balance 446 ml 1000 ml -450 ml Intake Oral 0 ml IV Total 1000 ml Tube Feeding 446 ml Output Urine Total 450 ml # Voids 3 4 # Bowel Movements 0 Physical Exam GENERAL: Well developed, well nourished. No acute distress. HEENT: Jugular venous pressure is normal. CHEST: Lungs clear to auscultation anteriorly. CARDIAC: Regular rate and rhythm without S3, S4, or murmur. ABDOMEN: Soft, nontender, no hepatosplenomegaly. Bowel sounds present. EXTREMITIES: No clubbing, cyanosis, or edema. Laboratory Laboratory Tests Test 11/23/17 08:52 11/24/17 06:32 White Blood Count 18.7 TH/MM3 18.1 TH/MM3 Red Blood Count 4.31 MIL/MM3 4.14 MIL/MM3 Hemoglobin 14.1 GM/DL 13.3 GM/DL Hematocrit 40.7 % 38.7 % Mean Corpuscular Volume 94.5 FL 93.3 FL Mean Corpuscular Hemoglobin 32.6 PG 32.2 PG Mean Corpuscular Hemoglobin Concent 34.6 % 34.5 % Red Cell Distribution Width 12.6 % 12.8 % Platelet Count 128 TH/MM3 151 TH/MM3 Mean Platelet Volume 10.2 FL 10.1 FL Neutrophils (%) (Auto) 77.7 % 74.4 % Lymphocytes (%) (Auto) 10.9 % 13.5 % Monocytes (%) (Auto) 8.8 % 9.6 % Eosinophils (%) (Auto) 1.9 % 2.1 % Basophils (%) (Auto) 0.7 % 0.4 % Neutrophils # (Auto) 14.5 TH/MM3 13.4 TH/MM3 Lymphocytes # (Auto) 2.0 TH/MM3 2.4 TH/MM3 Monocytes # (Auto) 1.6 TH/MM3 1.7 TH/MM3 Eosinophils # (Auto) 0.4 TH/MM3 0.4 TH/MM3 Basophils # (Auto) 0.1 TH/MM3 0.1 TH/MM3 CBC Comment DIFF FINAL DIFF FINAL Differential Comment Blood Urea Nitrogen 16 MG/DL Creatinine 0.63 MG/DL Random Glucose 178 MG/DL Calcium Level 8.1 MG/DL Sodium Level 145 MEQ/L Potassium Level 3.6 MEQ/L Chloride Level 114 MEQ/L Carbon Dioxide Level 25.7 MEQ/L Anion Gap 5 MEQ/L Estimat Glomerular Filtration Rate 125 ML/MIN Assessment and Plan Problem List: (1) Paroxysmal atrial fibrillation ICD Codes: I48.0 - Paroxysmal atrial fibrillation Status: Acute Plan: Stable overnight. No atrial fib since yesterday afternoon. Patient asymptomatic with the dysrhythmia. In sinus rhythm this morning. REC continue Amiodarone at 400 mg qd increase carvedilol as noted previously, given his high thromboembolic risk, recommend anticoagulation therapy when possible or at least daily baby aspirin for now (2) Cardiomyopathy ICD Codes: I42.9 - Cardiomyopathy, unspecified Status: Chronic Plan: Echo this admission reviewed, agree EF 40-45% with mildly dilated LV and global hypokinesis. Suspect non-ischemic cardiomyopathy. No acute CHF. REC continue carvedilol and enalapril Code Status full code Discussed Condition With patient Problem Qualifiers (1) Cardiomyopathy: Qualified Codes: I42.9 - Cardiomyopathy, unspecified Charles Urbina MD Nov 24, 2017 08:41
[2017-11-24] MEDS: SODIUM CHLORIDE 0.9% FLUSH 10 ML FLUSH IV FLUSH SCH ×2 (09:06→21:00)
[2017-11-24] MEDS: CARVEDILOL 6.25 MG TAB PO SCH ×2 (09:06→22:03)
[2017-11-24] MEDS: DOCUSATE SODIUM 50 MG/SENNA 8.6 MG TAB PO SCH ×2 (09:06→22:03)
[2017-11-24] MEDS: ENALAPRIL MALEATE 2.5 MG TAB PO SCH ×2 (09:06→22:03)
[2017-11-24] MEDS: FAMOTIDINE 20 MG/2 ML VIAL IV PUSH SCH ×2 (09:06→22:04)
[2017-11-24] MEDS: AMIODARONE 200 MG TAB PO SCH (09:07)
[2017-11-24] MEDS: SODIUM CHLOR 0.9% 1000 ML INJ 1,000 ML IV SCH ×3 (09:15→21:10)
[2017-11-24] MEDS ORDERED: NYSTATIN 100,000 U/GM PWD 15 GM BTL TOPICAL ONE (10:45)
[2017-11-24] MEDS ORDERED: PHENYLEPH/NS 1000 MCG/10 ML SYR IV ONE (12:00)
[2017-11-24] MEDS ORDERED: PROPOFOL 200 MG/20 ML AMP IV ONE (12:00)
[2017-11-24] MEDS: NYSTATIN 100,000 U/GM PWD 15 GM BTL TOPICAL SCH ×2 (12:00→22:04)
[2017-11-24] MEDS ORDERED: ePHEDrine/NS 25 MG/5 ML SYRINGE IV ONE (12:00)
--- NOTE | 2017-11-24 12:52 | HHI.PR ---
Subjective Remarks new motor or sensory deficit. Failed swallow eval and plan for PEG tube today. No fever or chills. No n/v/d/c. Denies chest pain or sob. More awake and alert. Objective Vitals Vital Signs Date Time Temp Pulse Resp B/P (MAP) Pulse Ox O2 Delivery O2 Flow Rate FiO2 11/24/17 11:51 98.0 69 20 119/62 (81) 98 11/24/17 10:26 21 11/24/17 09:51 73 11/24/17 08:23 97.9 72 20 130/63 (85) 94 11/24/17 05:10 97.8 72 18 144/73 (96) 94 11/24/17 04:30 73 11/24/17 01:45 98.6 72 20 131/68 (89) 94 11/24/17 00:30 68 11/23/17 20:56 97.2 76 20 125/63 (83) 96 11/23/17 20:30 78 11/23/17 17:41 96 21 11/23/17 16:31 101 11/23/17 15:40 99.8 100 18 131/70 (90) 96 11/23/17 14:34 131 I/O 11/23/17 11/23/17 11/23/17 11/24/17 11/24/17 11/24/17 06:59 14:59 22:59 06:59 14:59 22:59 Intake Total 446 ml 1000 ml Output Total 450 ml Balance 446 ml 1000 ml -450 ml Intake Oral 0 ml IV Total 1000 ml Tube Feeding 446 ml Output Urine Total 450 ml # Voids 3 4 # Bowel Movements 0 Result Diagram: 11/24/17 0632 11/24/17 0632 Imaging Last Impressions Abdomen X-Ray 11/21/17 0000 Signed Impressions: Service Date/Time: Tuesday, November 21, 2017 21:18 - CONCLUSION: NG tube tip into the distal stomach Collin Melissa MD Head CT 11/19/17 0000 Signed Impressions: Service Date/Time: Sunday, November 19, 2017 04:59 - CONCLUSION: No appreciable change in significant right MCA territory infarction. Lauryn Garsia MD Thyroid Ultrasound 11/17/17 0000 Signed Impressions: Service Date/Time: November 11:21 - CONCLUSION: Bilateral thyroid nodules. If these lesions have not been previously evaluated, fine-needle aspiration biopsy would be recommended on an outpatient elective basis Collin Melissa MD Cerebral Arteriogram 11/17/17 0000 Signed Impressions: Service Date/Time: November 02:03 - CONCLUSION: Right MCA embolectomy as above. Jayce Watt MD Brain MRI 11/17/17 0000 Signed Impressions: Service Date/Time: November 09:50 - CONCLUSION: 1. Acute infarction involving the right MCA territory which correlates to the finding on the CTA. No mass effect. There are scattered blood products throughout the infarct bed. Keshawn Dickson Jr., MD Neck CTA 11/16/172342 Signed Impressions: Service Date/Time: Thursday, November 16, 2017 23:53 - CONCLUSION: 1. Multinodular thyroid not mentioned above with thyroid enlargement, left greater than right and mild mass effect on the trachea. 2. 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 3. No evidence for hemodynamically significant stenosis of either internal carotid artery. 4. 5. The findings were discussed with Dr. Samaniego at 12: 6. 17 AM on November 17, 2017. Jarvis Dewitt MD Head CTA 11/16/[id number] Signed Impressions: Service Date/Time: Thursday, November 16, 2017 23:53 - CONCLUSION: Right MCA occlusion. The findings were discussed with Dr. Samaniego, neurologist construction craft laborer at 12:17 AM on November 17, 2017. Jarvis Dewitt MD Objective Remarks GENERAL: Very pleasant 72-year-old male, appears in acute distress, somnolent on /off. NG tube in place. CARDIOVASCULAR: Regular rate and rhythm, sinus rhythm on the monitor. No murmur rub or gallop appreciated. No JVD. RESPIRATORY: Breathing comfortably, no accessory muscle use. Clear, no adventitious sounds. GASTROINTESTINAL: Abdomen soft, non-tender, nondistended bowel sounds present. BS active. MUSCULOSKELETAL: Extremities without clubbing, cyanosis, or edema. Well perfused. NEUROLOGICAL: Somnolent, but will arouse to voice. Speech clear. Oriented to self, location, year. Left facial droop. Strength 5 out of 5 right upper extremity and right lower extremity. 1/5 left leg. Decreased sensation soft touch to left upper and left lower extremity. Procedures PEG placement 11/24/17 A/P Problem List: (1) Acute right MCA stroke ICD Code: I63.511 - Cerebral infarction due to unspecified occlusion or stenosis of right middle cerebral artery Status: Acute (2) Received intravenous tissue plasminogen activator (tPA) in emergency department ICD Code: Z92.82 - Status post administration of tPA (rtPA) in a different facility within the last 24 hours prior to admission to current facility Status: Acute Assessment and Plan NEURO: Acute ischemic stroke right MCA stroke Received TPA at midnight 11/17. Can't have anticoagulation at this time. Neuro ff. POss start antocoagulation in 1 week or so, need repeat CT head before starting anticoagulation and clearance from neurology Status post right M1 embolectomy by Dr. Watt 11/17, (2 passes of Penumbra catheter) Antihypertensive management to maintain systolic blood pressure less than 180, diastolic blood pressure less than 105. Avoid anticoagulant or antiplatelet therapy for 24 hours Monitor telemetry. Follow-up 2-D echo, with EF 40-45 % , lipid panel reviewed, hemoglobin A1c 9.6 CTA carotids negative for significant carotid occlusion. Speech therapy to evaluate swallow. PT/OT Neurology consult, Dr. Samaniego. Dense deficit persists left side DC 2% saline. Monitor sodium level PEG placement 11/24/17 RESP: Nasal cannula tolerate to maintain sat greater than 94% Will monitor for evidence of airway protection. Intubated if needed. Noted mild mass effect on the trachea due to thyroid goiter on CT scan. Controls airway well. CV: Monitor hemodynamics Labetalol/hydralazine as needed for systolic blood pressure greater than 180, diastolic blood pressure greater than 105 Troponin negative New a-fib -> converted with amiodarone. Monitor lytes Consult cardiology GI: Obesity NPO. Speech therapy ff, discussed with ST. Patient has NGT, however persistently failed swallow evaluation. Consult GI , ff PEG tube placement 11/24. Discussed with the patient and family. Treasury Specialist ff for tube feedings Famotidine for stress ulcer prophylaxis. FEN/RENAL: BPH Jaimes is in place. UA was not remarkable for significant hematuria. ID: Leukocytosis, likely reactive Monitor for signs and symptoms of infection. UA negative for markers of infection HEME: Follow-up CBC after 24 hours Not on antiplatelet or anticoagulant therapy. Received TPA at 2345 02/14 ENDO: Multi-nodular goiter CTA neck showed multinodular thyroid, left greater than right with mild mass effect on the trachea. Obtain thyroid ultrasound -> bilateral nodules. Acute hyperglycemia No known history of diabetes mellitus. Obtain hemoglobin A1c On to bedside glucose every 6 hours and initiate low-dose insulin sliding scale as indicated. Uncontrolled DM2 A1c of 9.5. Aj AMIN, accucheckmary , [facility], early childhood special educator. Tube feedings Glucerna, 1.5 . Monitor. Treasury Specialist also consult PROPH: SCDs for DVT prophylaxis. Avoid pharmacologic DVT prophylaxis for 24 hours following systemic TPA. Famotidine IV for stress ulcer prophylaxis. ACCESS: Peripheral IV providing adequate access at this time. FULL CODE Persistent with left sided deficit consistent with CT findings of large right hemisphere infarction. Continued non-dominant hemisphere swelling is expected, minimized with hypertonic saline and low dose diuretic. DC 2% NS, start on 0.9 NS . Monitor PT/OT/SP ff Failed swallow evaluation on NG tube, discused with the patient and family again patient will need PEG tube placement. Consult GI for PEG tube placement. Discussed with family, patient, nurse DC plan: Discussed with [place] [facility]. The patient is evaluated for [place] [facility], likely DC to [place] inpatient [facility] after PEG tube placement and if tolerating PEG tube. Poss DC to [place] in 1-2 days Ashia Scruggs MD Nov 24, 2017 12:52
[2017-11-24] MEDS ORDERED: ceFAZolin INJ 1,000 MG VIAL ONE (14:14)
--- NOTE | 2017-11-24 14:43 | GIPROC ---
[facility] [address] [facility]. [facility], [address] EGD WITH PEG PROCEDURE REPORT EXAM DATE: 11/24/2017 PATIENT NAME: Michael Ortega MR#: [id number] BIRTHDATE: 1945 ATTENDING: Maddie Santamaria MD ORDER #: [id number] AUTO TRANSMISSION TECHNICIAN: Martin Bey and Lima Rico STATUS: inpatient INDICATIONS: The patient is a 72 yr old male here for an EGD with PEG due to dysphagia PROCEDURE PERFORMED: EGD with PEG placement MEDICATIONS: Per Anesthesia and None. TOPICAL ANESTHETIC: CONSENT: The patient understands the risks and benefits of the procedure and understands that these risks include, but are not limited to: sedation, allergic reaction, infection, perforation and/or bleeding. Alternative means of evaluation and treatment include, among others: physical exam, x-rays, and/or surgical intervention. The patient elects to proceed with this endoscopic procedure. medical equipment was checked for proper function. Hand hygiene and appropriate measures for infection prevention was taken. After the risks, benefits and alternatives of the procedure were thoroughly explained, Informed consent was verified, confirmed and timeout was successfully executed by the treatment team. The patient was anesthetized with topical anesthesia and the Pentax [id number] endoscope was introduced through the mouth and advanced to the descending duodenum. The instrument was slowly withdrawn as the mucosa was fully examined. The upper, middle, and distal third of the esophagus were carefully inspected and no abnormalities were noted. The z-line was well seen at the GEJ. The endoscope was pushed into the fundus which was normal including a retroflexed view. The antrum, first and second part of the duodenum were unremarkable. The stomach was then inflated with air, and by a combination of transillumination and manual palpation, the site for the gastrostomy tube placement was selected and marked on the anterior abdominal wall. The skin of the anterior abdomen was surgically prepped and draped with sterile towels. Utilizing strict sterile technique, the selected site was then anesthetized with 1% xylocaine by injection into the skin and subcutaneous tissue. A 1 cm incision was made through the skin and subcutaneous tissue, and the needle/cannula assembly was then passed through the abdominal wall and through the anterior wall of the stomach, maintaining visualization with the endoscope. A snare device previously placed through the instrument channel was then opened and placed around the cannula, the needle was removed, and the insertion wire was passed through the cannula and into the stomach lumen. The snare was then loosened from the cannula, and repositioned to snare the insertion wire. The snare was then pulled up to the endoscope distal tip, and the scope was then withdrawn bringing with it the snare and insertion wire. The insertion wire was then released from the snare, and then loop-attached to the Ponsky 20 Fr gastrostomy tube. Using the "pull technique", the G-tube was then pulled into place by traction on the insertion wire at the abdominal wall end. The G-tube insertion site was then cleansed once again, and the external bolster was placed over the tube to secure it to the abdominal wall. A sterile dressing was then applied, and the procedure terminated. no abnormalities The gastroscope was then slowly withdrawn and removed. ADVERSE EVENT: There were no complications. IMPRESSIONS: 1. The upper, middle, and distal third of the esophagus were carefully inspected and no abnormalities were noted. The z-line was well seen at the GEJ. The endoscope was pushed into the fundus which was normal including a retroflexed view. The antrum, first and second part of the duodenum were unremarkable. 2. No abnormalities RECOMMENDATIONS: PEG recomendations: 1- NPO for 6 hours except for meds 2- Flush PEG tube every 6 hours with water and after each PEG feeding 3- May resume regular diet in the morning 4- May use Ensure or Boost etc. for PEG tube feeding REPEAT EXAM: procedure as needed Maddie Santamaria MD eSigned: Maddie Santamaria MD 11/24/2017 2:43 PM cc: PATIENT NAME: Michael Ortega MR#: [id number]
[2017-11-24] MEDS ORDERED: DO NOT ADM ANY ANTICOAGULANT DRUGS PRN (17:00)
[2017-11-25] VITALS (14 sets, daily range): BP systolic 91–123; BP diastolic 53–77; PULSE 63–99; RESP 18–20; TEMP 97.8–98.7; O2SAT 95–99
[2017-11-25] MEDS: CHLORHEXIDINE GLUCONATE 2 % 1 PACK (2 CLOTHS) TOP SCH (04:00)
[2017-11-25] MEDS: ARTIFICIAL TEARS OPTH SOLN 15 ML BTL EACH EYE SCH ×4 (05:19→22:13)
[2017-11-25] MEDS: INSULIN ASPART SUPPLEMENTAL SCALE SQ SCH ×4 (05:20→16:58)
--- NOTE | 2017-11-25 07:11 | HHI.GIFU ---
Subjective Remarks Pt sleeping in bed Does not open eyes during my exam PEG tube site with scan amount of dried blood, covered with clean and dry gauze , PEG clamped (Esther England) Objective Vitals I&O Vital Signs Date Time Temp Pulse Resp B/P (MAP) Pulse Ox O2 Delivery O2 Flow Rate FiO2 11/25/17 05:26 97.9 68 18 117/74 (88) 95 11/25/17 04:30 76 11/25/17 00:56 98.3 63 18 123/64 (83) 95 11/25/17 00:30 69 11/24/17 20:30 64 11/24/17 20:00 98.2 65 17 130/71 (90) 97 11/24/17 17:05 98 Nasal Cannula 2.00 11/24/17 17:04 98.7 64 20 130/68 (88) 98 11/24/17 15:40 98.4 68 20 131/73 (92) 96 Nasal Cannula 2 11/24/17 15:30 71 16 141/81 (101) 97 Nasal Cannula 2 11/24/17 15:22 Nasal Cannula 2 11/24/17 15:15 68 16 118/79 (92) 98 Nasal Cannula 4 11/24/17 15:00 68 16 125/75 (92) 98 Nasal Cannula 4 11/24/17 14:56 96.5 67 16 133/67 (89) 97 Nasal Cannula 4 11/24/17 11:51 98.0 69 20 119/62 (81) 98 11/24/17 10:26 21 11/24/17 09:51 73 11/24/17 08:23 97.9 72 20 130/63 (85) 94 I/O 11/24/17 11/24/17 11/24/17 11/25/17 11/25/17 11/25/17 07:00 15:00 23:00 07:00 15:00 23:00 Intake Total 150 ml 0 ml Output Total 450 ml 0 ml 250 ml Balance -450 ml 150 ml 0 ml -250 ml Intake Oral 0 ml IV Total 0 ml Other 150 ml Output Urine Total 450 ml 0 ml 250 ml # Voids 1 Imaging Last Impressions Abdomen X-Ray 11/21/17 0000 Signed Impressions: Service Date/Time: Tuesday, November 21, 2017 21:18 - CONCLUSION: NG tube tip into the distal stomach Collin Melissa MD Head CT 11/19/17 Signed Impressions: Service Date/Time: Sunday, November 19, 2017 04:59 - CONCLUSION: No appreciable change in significant right MCA territory infarction. Lauryn Garsia MD Thyroid Ultrasound 11/17/17 Signed Impressions: Service Date/Time: November 11:21 - CONCLUSION: Bilateral thyroid nodules. If these lesions have not been previously evaluated, fine-needle aspiration biopsy would be recommended on an outpatient elective basis Collin Melissa MD Cerebral Arteriogram 11/17/17 Signed Impressions: Service Date/Time: November 02:03 - CONCLUSION: Right MCA embolectomy as above. Jayce Watt MD Brain MRI 11/17/17 Signed Impressions: Service Date/Time: November 09:50 - CONCLUSION: 1. Acute infarction involving the right MCA territory which correlates to the finding on the CTA. No mass effect. There are scattered blood products throughout the infarct bed. Keshawn Dickson Jr., MD Neck CTA 11/16/172342 Signed Impressions: Service Date/Time: Thursday, November 16, 2017 23:53 - CONCLUSION: 1. Multinodular thyroid not mentioned above with thyroid enlargement, left greater than right and mild mass effect on the trachea. 2. 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 3. No evidence for hemodynamically significant stenosis of either internal carotid artery. 4. 5. The findings were discussed with Dr. Samaniego at 12: 6. 17 AM on November 17, 2017. Jarvis Dewitt MD Head CTA 11/16/172342 Signed Impressions: Service Date/Time: Thursday, November 16, 2017 23:53 - CONCLUSION: Right MCA occlusion. The findings were discussed with Dr. Samaniego, neurologist heating and air conditioning mechanic at 12:17 AM on November 17, 2017. Jarvis Dewitt MD Physical Exam HEENT: Normocephalic; atraumatic CHEST: Even/unlabored ABDOMEN: Soft, nondistended, bowel sounds active. PEG tube site with scant amount of dried blood. Covered with clean and dry gauze. EXTREMITIES: No clubbing, cyanosis, or edema. SKIN: Normal; no rash; no jaundice. LMFT: Lethargic (Esther England) Assessment and Plan Plan Assessment: - Dysphagia secondary to recent CVA- R MCA occlusion S/P TPA on Nov 17 Speech therapy evaluation noted pt to have severe oropharyngeal dysphagia with high risk of aspiration. They recommended NPO with TF only and continued dysphagia therapy. Pt has been very lethargic and unable to cooperate with speech therapy. GI consulted for PEG tube placement. Pt not on blood thinners, plan for PEG tomorrow - Nutrition recommends Jevity 1.5 at goal rate 55mL/hr (11/25) --> S/P EGD with PEG placement --> Normal EGD. PEG clamped, site with scant amount of dried blood, covered with clean and dry gauze. Dietary recommendations Glucerna 1.5 with a goal rate of 55 mL/hr - previous Jevity discontinued due to elevated hgb A1C. Plan: Glucerna 1.5- goal rate 55 mL/hr Flush PEG q 6h and after PEG tube feedings GI will sign off, please reconsult as needed Pt has been seen and examined by myself and Dr. Santamaria and this note is written on his behalf (Esther England) Physician Comments Seen and examined with FRONT END DEVELOPER JAVASCRIPT HTML CSS, s/p peg. Advance TF as tolerated to meet goals. Flush PEG with water q shift. GI will sign off, reconsult as needed. Thankyou (Maddie Santamaria MD) Esther England Nov 25, 2017 07:11 Maddie Santamaria MD Nov 25, 2017 19:14
[2017-11-25] MEDS: ENALAPRIL MALEATE 2.5 MG TAB PO SCH ×2 (07:47→22:07)
[2017-11-25] MEDS: SODIUM CHLORIDE 0.9% FLUSH 10 ML FLUSH IV FLUSH SCH ×2 (08:32→22:09)
[2017-11-25] MEDS: FAMOTIDINE 20 MG/2 ML VIAL IV PUSH SCH ×2 (08:34→22:08)
[2017-11-25] MEDS: CARVEDILOL 6.25 MG TAB PO SCH ×2 (08:34→22:08)
[2017-11-25] MEDS: DOCUSATE SODIUM 50 MG/SENNA 8.6 MG TAB PO SCH ×2 (08:34→22:08)
[2017-11-25] MEDS: AMIODARONE 200 MG TAB PO SCH (08:34)
[2017-11-25] MEDS: NYSTATIN 100,000 U/GM PWD 15 GM BTL TOPICAL SCH ×2 (08:35→22:13)
[2017-11-25] MEDS: SODIUM CHLOR 0.9% 1000 ML INJ 1,000 ML IV SCH ×2 (08:37→22:09)
[2017-11-25] MEDS ORDERED: AMIODARONE INJ 150 MG in DEXTROSE 5% IN WATER 100ML INJ 100 ML IV ONE ×2 (11:00)
[2017-11-25] MEDS ORDERED: AMIODARONE INJ 450 MG in DEXTROSE 5% IN WATE(EXCEL) INJ 241 ML IV PRN ×2 (11:00)
--- NOTE | 2017-11-25 11:23 | HHI.PR ---
Subjective Remarks The patient is in bed. Motor or sensory deficit. Not much improvement. Noted with Tameka cuevas. Cardiology is starting in him on amiodarone drip. Transferred to [facility] or fourth floor for ongoing amiodarone drip. Feeding tube was placed by GI yesterday. Started tube feedings. Patient denies any chest pain or shortness of breath at this time. He feels very sleepy and very tired. Has some engagement in the morning with the physical therapy and OT. Objective Vitals Vital Signs Date Time Temp Pulse Resp B/P (MAP) Pulse Ox O2 Delivery O2 Flow Rate FiO2 11/25/17 10:19 96 Nasal Cannula 2.00 11/25/17 08:00 95 11/25/17 08:00 98.6 89 18 114/59 (77) 96 11/25/17 05:26 97.9 68 18 117/74 (88) 95 11/25/17 04:30 76 11/25/17 00:56 98.3 63 18 123/64 (83) 95 11/25/17 00:30 69 11/24/17 20:30 64 11/24/17 20:00 98.2 65 17 130/71 (90) 97 11/24/17 17:05 98 Nasal Cannula 2.00 11/24/17 17:04 98.7 64 20 130/68 (88) 98 11/24/17 15:40 98.4 68 20 131/73 (92) 96 Nasal Cannula 2 11/24/17 15:30 71 16 141/81 (101) 97 Nasal Cannula 2 11/24/17 15:22 Nasal Cannula 2 11/24/17 15:15 68 16 118/79 (92) 98 Nasal Cannula 4 11/24/17 15:00 68 16 125/75 (92) 98 Nasal Cannula 4 11/24/17 14:56 96.5 67 16 133/67 (89) 97 Nasal Cannula 4 11/24/17 11:51 98.0 69 20 119/62 (81) 98 I/O 11/24/17 11/24/17 11/24/17 11/25/17 11/25/17 11/25/17 07:00 15:00 23:00 07:00 15:00 23:00 Intake Total 150 ml 0 ml Output Total 450 ml 0 ml 250 ml Balance -450 ml 150 ml 0 ml -250 ml Intake Oral 0 ml IV Total 0 ml Other 150 ml Output Urine Total 450 ml 0 ml 250 ml # Voids 1 Result Diagram: 11/24/17 0632 11/24/17 0632 Imaging Last Impressions Abdomen X-Ray 11/21/17 0000 Signed Impressions: Service Date/Time: Tuesday, November 21, 2017 21:18 - CONCLUSION: NG tube tip into the distal stomach Collin Melissa MD Head CT 11/19/17 0000 Signed Impressions: Service Date/Time: Sunday, November 19, 2017 04:59 - CONCLUSION: No appreciable change in significant right MCA territory infarction. Lauryn Garsia MD Thyroid Ultrasound 11/17/17 0000 Signed Impressions: Service Date/Time: November 11:21 - CONCLUSION: Bilateral thyroid nodules. If these lesions have not been previously evaluated, fine-needle aspiration biopsy would be recommended on an outpatient elective basis Collin Melissa MD Cerebral Arteriogram 11/17/17 0000 Signed Impressions: Service Date/Time: November 02:03 - CONCLUSION: Right MCA embolectomy as above. Jayce Watt MD Brain MRI 11/17/17 0000 Signed Impressions: Service Date/Time: November 09:50 - CONCLUSION: 1. Acute infarction involving the right MCA territory which correlates to the finding on the CTA. No mass effect. There are scattered blood products throughout the infarct bed. Keshawn Dicksno Jr., MD Neck CTA 11/16/172342 Signed Impressions: Service Date/Time: Thursday, November 16, 2017 23:53 - CONCLUSION: 1. Multinodular thyroid not mentioned above with thyroid enlargement, left greater than right and mild mass effect on the trachea. 2. 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 3. No evidence for hemodynamically significant stenosis of either internal carotid artery. 4. 5. The findings were discussed with Dr. Samaniego at 12: 6. 17 AM on November 17, 2017. Jarvis Dewitt MD Head CTA 11/16/172342 Signed Impressions: Service Date/Time: Thursday, November 16, 2017 23:53 - CONCLUSION: Right MCA occlusion. The findings were discussed with Dr. Samaniego, neurologist offender job retention specialist at 12:17 AM on November 17, 2017. Jarvis Dewitt MD Objective Remarks GENERAL: Very pleasant 72-year-old male, appears in acute distress, somnolent on /off. NG tube in place. CARDIOVASCULAR: Irregularly irregular rhythm. No murmur rub or gallop appreciated. No JVD. RESPIRATORY: Breathing comfortably, no accessory muscle use. Clear, no adventitious sounds. GASTROINTESTINAL: Abdomen soft, non-tender, nondistended bowel sounds present. BS active. MUSCULOSKELETAL: Extremities without clubbing, cyanosis, or edema. Well perfused. NEUROLOGICAL: Somnolent, but will arouse to voice. Speech clear. Oriented to self, location, year. Left facial droop. Strength 5 out of 5 right upper extremity and right lower extremity. 1/5 left leg. Decreased sensation soft touch to left upper and left lower extremity. Procedures PEG placement 11/24/17 A/P Problem List: (1) Acute right MCA stroke ICD Code: I63.511 - Cerebral infarction due to unspecified occlusion or stenosis of right middle cerebral artery Status: Acute (2) Received intravenous tissue plasminogen activator (tPA) in emergency department ICD Code: Z92.82 - Status post administration of tPA (rtPA) in a different facility within the last 24 hours prior to admission to current facility Status: Acute Assessment and Plan NEURO: Acute ischemic stroke right MCA stroke Persistent atrial fibrillation Dysphagia after stroke with the PEG tube placement Diabetes mellitus uncontrolled A1c 9.6 Received TPA at midnight 11/17. Can't have anticoagulation at this time. Neuro ff. POss start antocoagulation in 1 week or so, need repeat CT head before starting anticoagulation and clearance from neurology Status post right M1 embolectomy by Dr. Watt 11/17, (2 passes of Penumbra catheter) Antihypertensive management to maintain systolic blood pressure less than 180, diastolic blood pressure less than 105. Avoid anticoagulant or antiplatelet therapy for 24 hours Monitor telemetry. Follow-up 2-D echo, with EF 40-45 % , lipid panel reviewed, hemoglobin A1c 9.6 CTA carotids negative for significant carotid occlusion. Speech therapy to evaluate swallow. PT/OT Neurology consult, Dr. Samaniego. Dense deficit persists left side DC 2% saline. Monitor sodium level S/P PEG placement 11/24/17 Started on amiodarone drip. Cardiology following Dr. López, appreciate recommendations. RESP: Nasal cannula tolerate to maintain sat greater than 94% Will monitor for evidence of airway protection. Intubated if needed. Noted mild mass effect on the trachea due to thyroid goiter on CT scan. Controls airway well. CV: Monitor hemodynamics Labetalol/hydralazine as needed for systolic blood pressure greater than 180, diastolic blood pressure greater than 105 Troponin negative New a-fib -> converted with amiodarone. Monitor lytes Consult cardiology GI: Obesity NPO. Speech therapy ff, discussed with ST. Patient has NGT, however persistently failed swallow evaluation. Consult GI , ff PEG tube placement 11/24. Discussed with the patient and family. Derrick Barge Operator ff for tube feedings Famotidine for stress ulcer prophylaxis. FEN/RENAL: BPH Jaimes is in place. UA was not remarkable for significant hematuria. ID: Leukocytosis, likely reactive Monitor for signs and symptoms of infection. UA negative for markers of infection HEME: Follow-up CBC after 24 hours Not on antiplatelet or anticoagulant therapy. Received TPA at 2345 11/16 ENDO: Multi-nodular goiter CTA neck showed multinodular thyroid, left greater than right with mild mass effect on the trachea. Obtain thyroid ultrasound -> bilateral nodules. Acute hyperglycemia No known history of diabetes mellitus. Obtain hemoglobin A1c On to bedside glucose every 6 hours and initiate low-dose insulin sliding scale as indicated. Uncontrolled DM2 A1c of 9.5. Aj AMIN, accsteve , [facility], adult educator. Tube feedings Glucerna, 1.5 . Monitor. Derrick Barge Operator also consult PROPH: SCDs for DVT prophylaxis. Avoid pharmacologic DVT prophylaxis for 24 hours following systemic TPA. Famotidine IV for stress ulcer prophylaxis. ACCESS: Peripheral IV providing adequate access at this time. FULL CODE Persistent with left sided deficit consistent with CT findings of large right hemisphere infarction. Continued non-dominant hemisphere swelling is expected, minimized with hypertonic saline and low dose diuretic. DC 2% NS, start on 0.9 NS . Monitor PT/OT/SP ff Failed swallow evaluation on NG tube, discussed with the patient and family again patient will need PEG tube placement. Consult GI for PEG tube placement. Discussed with family, patient, nurse DC plan: Plan to discharge to [place] inpatient rehabilitation when improved and cleared by cardiology and neurology. Ashia Scruggs MD Nov 25, 2017 11:23
--- NOTE | 2017-11-25 11:44 | PD.CARD.PN ---
Subjective Subjective Remarks Resting comfortably. Denies CP, palpitations, dizziness, dyspnea, nausea. Objective Medications Item Value Date Time Amiodarone HCl 400 mg 11/23/17 0900 (Cordarone) DAILY/PO 11/23/17 0956 Carvedilol 3.125 mg 11/23/17 09 (Coreg) Q12HR/PO 11/23/172146 Enalapril Maleate 2.5 mg 11/23/17 09 (Vasotec) BID/PO 11/23/172146 Amiodarone HCl 250 ml @ 33.33 mls/hr 11/25/17 1100 450 mg/Dextrose .Q7H31M PRN/IV Carvedilol 6.25 mg 11/24/17899 (Coreg) Q12HR/PO 11/25/17 0834 Current Medications Medications (Trade) Dose Ordered Sig/Vin Route Start Time Stop Time Status Last Admin (NS Flush) 2 ml UNSCH PRN IV FLUSH 11/17/17 04:30 (NS Flush) 2 ml BID IV FLUSH 11/17/17 09:00 11/24/17 09:06 (Pepcid Inj) 20 mg Q12HR IV PUSH 11/17/17 09:00 11/25/17 08:34 (Zofran Inj) 4 mg Q6H PRN IV PUSH 11/17/17 04:30 (Albuterol Neb) 2.5 mg Q2HR NEB PRN INH 11/17/17 04:30 Miscellaneous Information 1 Q361D XX 11/17/17 04:30 (Chlorhexidine 2% Cloth) Taper DAILY@04 TOP 11/18/17 04:00 11/14/18 03:59 (Chlorhexidine 2% Cloth) 3 pack UNSCH PRN TOP 11/17/17 04:30 (Estefany-Colace) 1 tab BID PO 11/17/17 09:00 11/25/17 08:34 (Milk Of Magnesia Liq) 30 ml Q12H PRN PO 11/17/17 04:30 (Senokot) 17.2 mg Q12H PRN PO 11/17/17 04:30 (Dulcolax Supp) 10 mg DAILY PRN RECTAL 11/17/17 04:30 (Lactulose Liq) 30 ml DAILY PRN PO 11/17/17 04:30 (Trandate Inj) 10 mg Q4H PRN IV PUSH 11/17/17 04:30 (Apresoline Inj) 10 mg Q4H PRN IV PUSH 11/17/17 04:30 (D50w (Vial) Inj) 50 ml UNSCH PRN IV PUSH 11/17/17 04:30 (Glucagon Inj) 1 mg UNSCH PRN OTHER 11/17/17 04:30 (NovoLOG SUPPLEMENTAL SCALE) 1 Q6H SQ 11/17/17 06:00 11/24/17 05:12 (Tylenol Supp) 650 mg Q4H PRN RECTAL 11/17/17 05:30 (Tears Naturale Opth Soln) 1 drop Q6H EACH EYE 11/19/17 17:00 11/25/17 05:19 Sodium Chloride 1,000 ml @ 84 mls/hr [id number] IV 11/21/17 09:45 11/25/17 08:37 (Cordarone) 400 mg DAILY PO 11/23/17 09:00 Future Hold 11/25/17 08:34 (Vasotec) 2.5 mg BID PO 11/23/17 09:00 11/24/17 22:03 Cefazolin Sodium 1000 mg/Sodium Chloride 100 ml @ 200 mls/hr WOOD BOATBUILDER APPRENTICE IV 11/23/17 16:30 11/26/17 16:29 Lactated Ringer's 1,000 ml @ 30 mls/hr Q24H PRN IV 11/23/17 20:00 11/26/17 19:59 11/24/17 11:14 Sodium Chloride 500 ml @ 30 mls/hr [id number] PRN IV 11/23/17 20:00 11/26/17 19:59 (Lopressor) 25 mg WOOD BOATBUILDER APPRENTICE PRN PO 11/23/17 20:15 11/26/17 20:14 (Betadine 5% Antisepsis Kit) 1 applic WOOD BOATBUILDER APPRENTICE PRN EACH NARE 11/23/17 20:15 11/26/17 20:14 (Chlorhexidine 2% Cloth) 3 pack WOOD BOATBUILDER APPRENTICE PRN TOPICAL 11/23/17 20:15 11/26/17 20:14 (Coreg) 6.25 mg Q12HR PO 11/24/17 09:00 11/25/17 08:34 (Mycostatin Powder) 1 applic Q12HR TOPICAL 11/24/17 12:00 11/25/17 08:35 Miscellaneous Information ALL NURSING DEPARTME... UNSCH PRN .XX 11/24/17 17:00 11/25/17 16:59 Amiodarone HCl 450 mg/Dextrose 250 ml @ 33.33 mls/ hr Q7H31M PRN IV 11/25/17 11:00 Vital Signs / I&O Vital Signs Date Time Temp Pulse Resp B/P (MAP) Pulse Ox O2 Delivery O2 Flow Rate FiO2 11/25/17 10:19 96 Nasal Cannula 2.00 11/25/17 08:00 95 11/25/17 08:00 98.6 89 18 114/59 (77) 96 11/25/17 05:26 97.9 68 18 117/74 (88) 95 11/25/17 04:30 76 11/25/17 00:56 98.3 63 18 123/64 (83) 95 11/25/17 00:30 69 11/24/17 20:30 64 11/24/17 20:00 98.2 65 17 130/71 (90) 97 11/24/17 17:05 98 Nasal Cannula 2.00 11/24/17 17:04 98.7 64 20 130/68 (88) 98 11/24/17 15:40 98.4 68 20 131/73 (92) 96 Nasal Cannula 2 11/24/17 15:30 71 16 141/81 (101) 97 Nasal Cannula 2 11/24/17 15:22 Nasal Cannula 2 11/24/17 15:15 68 16 118/79 (92) 98 Nasal Cannula 4 11/24/17 15:00 68 16 125/75 (92) 98 Nasal Cannula 4 11/24/17 14:56 96.5 67 16 133/67 (89) 97 Nasal Cannula 4 11/24/17 11:51 98.0 69 20 119/62 (81) 98 I/O 11/24/17 11/24/17 11/24/17 11/25/17 11/25/17 11/25/17 07:00 15:00 23:00 07:00 15:00 23:00 Intake Total 150 ml 0 ml Output Total 450 ml 0 ml 250 ml Balance -450 ml 150 ml 0 ml -250 ml Intake Oral 0 ml IV Total 0 ml Other 150 ml Output Urine Total 450 ml 0 ml 250 ml # Voids 1 Physical Exam GENERAL: Well developed, well nourished. No acute distress. HEENT: Jugular venous pressure is normal. CHEST: Lungs clear to auscultation anteriorly. CARDIAC: Regular rate and rhythm without S3, S4, or murmur. ABDOMEN: Soft, nontender, no hepatosplenomegaly. Bowel sounds present. EXTREMITIES: No clubbing, cyanosis, or edema. Assessment and Plan Problem List: (1) Paroxysmal atrial fibrillation ICD Codes: I48.0 - Paroxysmal atrial fibrillation Status: Acute Plan: Back in sustained atrial fib, mildly elevated HR. Patient remains asymptomatic REC change to IV Amiodarone for now continue carvedilol as noted previously, given his high thromboembolic risk, recommend anticoagulation therapy when possible or at least daily baby aspirin for now (2) Cardiomyopathy ICD Codes: I42.9 - Cardiomyopathy, unspecified Status: Chronic Plan: Echo this admission reviewed, agree EF 40-45% with mildly dilated LV and global hypokinesis. Suspect non-ischemic cardiomyopathy. No acute CHF. REC continue carvedilol and enalapril Code Status full code Discussed Condition With patient and his Problem Qualifiers (1) Cardiomyopathy: Qualified Codes: I42.9 - Cardiomyopathy, unspecified Charles Urbina MD Nov 25, 2017 11:44
[2017-11-25] MEDS ORDERED: AMIODARONE INJ 450 MG in SODIUM CHLOR 0.9% (EXCEL) INJ 241 ML IV PRN (13:30)
[2017-11-25] MEDS: APIXABAN 5 MG TABLET PO SCH (22:08)
[2017-11-26] VITALS (8 sets, daily range): BP systolic 113–139; BP diastolic 65–77; PULSE 78–97; RESP 18–20; TEMP 98.1–98.4; O2SAT 94–97
[2017-11-26] MEDS: INSULIN ASPART SUPPLEMENTAL SCALE SQ SCH ×4 (00:50→17:16)
[2017-11-26] MEDS: CHLORHEXIDINE GLUCONATE 2 % 1 PACK (2 CLOTHS) TOP SCH (04:00)
[2017-11-26] MEDS: ARTIFICIAL TEARS OPTH SOLN 15 ML BTL EACH EYE SCH ×4 (05:04→22:02)
[2017-11-26] MEDS: SODIUM CHLOR 0.9% 1000 ML INJ 1,000 ML IV SCH ×2 (09:17→19:54)
[2017-11-26] MEDS: SODIUM CHLORIDE 0.9% FLUSH 10 ML FLUSH IV FLUSH SCH ×2 (09:41→21:00)
[2017-11-26] MEDS: APIXABAN 5 MG TABLET PO SCH ×2 (09:41→22:02)
[2017-11-26] MEDS: ENALAPRIL MALEATE 2.5 MG TAB PO SCH ×2 (09:41→21:00)
[2017-11-26] MEDS: CARVEDILOL 6.25 MG TAB PO SCH (09:41)
[2017-11-26] MEDS: FAMOTIDINE 20 MG/2 ML VIAL IV PUSH SCH ×2 (09:41→22:02)
[2017-11-26] MEDS: DOCUSATE SODIUM 50 MG/SENNA 8.6 MG TAB PO SCH ×2 (09:41→22:02)
[2017-11-26] MEDS: NYSTATIN 100,000 U/GM PWD 15 GM BTL TOPICAL SCH ×2 (09:42→21:00)
--- NOTE | 2017-11-26 09:47 | HHI.PR ---
Subjective Remarks Follow-up for right MCA stroke, atrial fibrillation. Patient is resting in bed. He wakes up on verbal commands. Denies any acute concerns. He does not talk during this exam. His is at bedside. Objective Vitals Vital Signs Date Time Temp Pulse Resp B/P (MAP) Pulse Ox O2 Delivery O2 Flow Rate FiO2 11/26/17 08:00 98.3 97 20 139/71 (93) 96 11/26/17 04:00 98.2 84 20 137/65 (89) 94 11/26/17 03:47 83 11/26/17 00:00 98.1 84 20 134/72 (92) 94 11/25/17 23:41 99 11/25/17 22:05 97.9 82 18 118/74 (89) 96 11/25/17 20:00 98.7 81 20 91/53 (66) 96 11/25/17 20:00 74 11/25/17 16:00 97.8 84 18 121/76 (91) 99 11/25/17 15:58 88 11/25/17 15:04 91 121/78 11/25/17 13:37 97.8 80 18 108/77 (87) 99 11/25/17 12:21 77 11/25/17 12:00 97.9 64 18 103/60 (74) 97 11/25/17 10:19 96 Nasal Cannula 2.00 I/O 11/25/17 11/25/17 11/25/17 11/26/17 11/26/17 11/26/17 07:00 15:00 23:00 07:00 15:00 23:00 Intake Total 1000 ml Output Total 250 ml 300 ml Balance -250 ml -300 ml 1000 ml IV Total 1000 ml Output Urine Total 250 ml 300 ml # Voids 1 3 # Bowel Movements 0 Result Diagram: 11/24/17 0632 11/24/17 0632 Imaging Last Impressions Abdomen X-Ray 11/21/17 0000 Signed Impressions: Service Date/Time: Tuesday, November 21, 2017 21:18 - CONCLUSION: NG tube tip into the distal stomach Collin Melissa MD Head CT 11/19/17 0000 Signed Impressions: Service Date/Time: Sunday, November 19, 2017 04:59 - CONCLUSION: No appreciable change in significant right MCA territory infarction. Lauryn Garsia MD Thyroid Ultrasound 11/17/17 0000 Signed Impressions: Service Date/Time: November 11:21 - CONCLUSION: Bilateral thyroid nodules. If these lesions have not been previously evaluated, fine-needle aspiration biopsy would be recommended on an outpatient elective basis Collin Melissa MD Cerebral Arteriogram 11/17/17 0000 Signed Impressions: Service Date/Time: November 02:03 - CONCLUSION: Right MCA embolectomy as above. Jayce Watt MD Brain MRI 11/17/17 0000 Signed Impressions: Service Date/Time: November 09:50 - CONCLUSION: 1. Acute infarction involving the right MCA territory which correlates to the finding on the CTA. No mass effect. There are scattered blood products throughout the infarct bed. Keshawn Dickson Jr., MD Neck CTA 11/16/172342 Signed Impressions: Service Date/Time: Thursday, November 16, 2017 23:53 - CONCLUSION: 1. Multinodular thyroid not mentioned above with thyroid enlargement, left greater than right and mild mass effect on the trachea. 2. 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 3. No evidence for hemodynamically significant stenosis of either internal carotid artery. 4. 5. The findings were discussed with Dr. Samaniego at 12: 6. 17 AM on November 17, 2017. Jarvis Dewitt MD Head CTA 11/16/172342 Signed Impressions: Service Date/Time: Thursday, November 16, 2017 23:53 - CONCLUSION: Right MCA occlusion. The findings were discussed with Dr. Samaniego, neurologist personal care home administrator at 12:17 AM on November 17, 2017. Jarvis Dewitt MD Objective Remarks GENERAL: Sleepy but wakes up on verbal commands. No acute distress. SKIN: Warm and dry. HEAD: Normocephalic. EYES: No scleral icterus. No injection or drainage. NECK: Supple, trachea midline. No JVD or lymphadenopathy. CARDIOVASCULAR: Irregularly irregular without murmurs, gallops, or rubs. RESPIRATORY: Breath sounds equal bilaterally. No accessory muscle use. GASTROINTESTINAL: Abdomen soft, non-tender, nondistended. MUSCULOSKELETAL: No cyanosis, or edema. Right upper and lower extremity strength is intact. Left upper and lower extremity 0/5. BACK: Nontender without obvious deformity. No CVA tenderness. Procedures PEG placement 11/24/17 Echo to 52,018 Mildly dilated left ventricle. Wall thickness is normal. The left ventricular systolic function is moderately reduced with an estimated ejection fraction in the range of 40-45%. [id number] mitral valve regurgitation. Mitral annular calcification is present. A/P Problem List: (1) Acute right MCA stroke ICD Code: I63.511 - Cerebral infarction due to unspecified occlusion or stenosis of right middle cerebral artery Status: Acute (2) Received intravenous tissue plasminogen activator (tPA) in emergency department ICD Code: Z92.82 - Status post administration of tPA (rtPA) in a different facility within the last 24 hours prior to admission to current facility Status: Acute (3) Atrial fibrillation ICD Code: I48.91 - Unspecified atrial fibrillation (4) Diabetes mellitus ICD Code: E11.9 - Type 2 diabetes mellitus without complications Assessment and Plan 72 yo R hand dominant WM with PMH of obesity, BPH, and limited prior contact with medical care who presented to [facility] [place] [facility] on 11/17/2017 with confusion, aphasia, L hemiparesis. Per patient's his symptoms occurred around 225-0 - 2300 hrs. on 11/16/2017. TPN was administered. CTA brain demonstrated a portion of M1 segment of right MCA. CTA carotid showed no significant stenosis. Patient was subsequently transferred to [facility] in [place] where he underwent embolectomy by interventional radiology. Patient was found to have new onset atrial fibrillation as well as diabetes mellitus. - Right MCA stroke - Discussed with cardiology and neurology on 11/26/2017. - Patient was already started on apixaban 5 mg twice a day on 11/25/2017. - Per discussion with neurology, we'll get CT brain without contrast. If unremarkable for any acute bleed, we'll continue apixaban 5 mg twice a day. - Continue PT/OT. Patient is accepted at [facility], waiting for insurance authorization. - Continue tube feed through PEG tube. - Atrial fibrillation - Patient was on amiodarone drip. Cardiology recommended switching amiodarone drip to amiodarone by mouth. - Continue carvedilol 12.5 mg by mouth every 12 hours for rate control. 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 - Continue enalapril 2.5 mg by mouth twice a day. Continue carvedilol. - Diabetes mellitus - Multinodular goiter - Hemoglobin A1c was 9.6. - Patient is currently on sliding scale insulin. Goal blood glucose 140 - 180. - CTA neck showed multinodular thyroid, left greater than right with mild mass effect on the trachea. Thyroid ultrasound -> bilateral nodules. - Thyroid US results can be followed up in the outpatient setting by an Assistant Nurse Manager. Full code. Apixaban. Pretty Zarate DO Nov 26, 2017 9:47 am
--- NOTE | 2017-11-26 11:38 | PD.CARD.PN ---
Subjective Subjective Remarks Resting comfortably. Denies CP, palpitations, dizziness, dyspnea, nausea. Objective Medications Item Value Date Time Metoprolol 25 mg 11/23/172014 Tartrate INDUSTRIAL REAL ESTATE AGENT PRN/PO (Lopressor) Apixaban 5 mg 11/25/17 2100 (Eliquis) BID/PO 11/26/17 0941 Amiodarone HCl 250 ml @ 33.33 mls/hr 11/25/17 1330 450 mg/Sodium .Q7H31M PRN/IV Chloride Carvedilol 6.25 mg 11/24/17 0900 (Coreg) Q12HR/PO 11/26/17 09 Enalapril Maleate 2.5 mg 11/23/17 0900 (Vasotec) BID/PO 11/26/17 09 Current Medications Medications (Trade) Dose Ordered Sig/Vin Route Start Time Stop Time Status Last Admin (NS Flush) 2 ml UNSCH PRN IV FLUSH 11/17/17 04:30 (NS Flush) 2 ml BID IV FLUSH 11/17/17 09:00 11/26/17 09:41 (Pepcid Inj) 20 mg Q12HR IV PUSH 11/17/17 09:00 11/26/17 09:41 (Zofran Inj) 4 mg Q6H PRN IV PUSH 11/17/17 04:30 (Albuterol Neb) 2.5 mg Q2HR NEB PRN INH 11/17/17 04:30 Miscellaneous Information 1 Q361D XX 11/17/17 04:30 (Chlorhexidine 2% Cloth) Taper DAILY@04 TOP 11/18/17 04:00 11/14/18 03:59 (Chlorhexidine 2% Cloth) 3 pack UNSCH PRN TOP 11/17/17 04:30 (Estefany-Colace) 1 tab BID PO 11/17/17 09:00 11/26/17 09:41 (Milk Of Magnesia Liq) 30 ml Q12H PRN PO 11/17/17 04:30 (Senokot) 17.2 mg Q12H PRN PO 11/17/17 04:30 (Dulcolax Supp) 10 mg DAILY PRN RECTAL 11/17/17 04:30 (Lactulose Liq) 30 ml DAILY PRN PO 11/17/17 04:30 (Trandate Inj) 10 mg Q4H PRN IV PUSH 11/17/17 04:30 (Apresoline Inj) 10 mg Q4H PRN IV PUSH 11/17/17 04:30 (D50w (Vial) Inj) 50 ml UNSCH PRN IV PUSH 11/17/17 04:30 (Glucagon Inj) 1 mg UNSCH PRN OTHER 11/17/17 04:30 (NovoLOG SUPPLEMENTAL SCALE) 1 Q6H SQ 11/17/17 06:00 11/26/17 05:14 (Tylenol Supp) 650 mg Q4H PRN RECTAL 11/17/17 05:30 (Tears Naturale Opth Soln) 1 drop Q6H EACH EYE 11/19/17 17:00 11/26/17 05:04 Sodium Chloride 1,000 ml @ 84 mls/hr [id number] IV 11/21/17 09:45 11/26/17 09:17 (Cordarone) 400 mg DAILY PO 11/23/17 09:00 Future Hold 11/25/17 08:34 (Vasotec) 2.5 mg BID PO 11/23/17 09:00 11/26/17 09:41 Cefazolin Sodium 1000 mg/Sodium Chloride 100 ml @ 200 mls/hr INDUSTRIAL REAL ESTATE AGENT IV 11/23/17 16:30 11/26/17 16:29 Lactated Ringer's 1,000 ml @ 30 mls/hr Q24H PRN IV 11/23/17 20:00 11/26/17 19:59 11/24/17 11:14 Sodium Chloride 500 ml @ 30 mls/hr [id number] PRN IV 11/23/17 20:00 11/26/17 19:59 (Lopressor) 25 mg INDUSTRIAL REAL ESTATE AGENT PRN PO 11/23/17 20:15 11/26/17 20:14 (Betadine 5% Antisepsis Kit) 1 applic INDUSTRIAL REAL ESTATE AGENT PRN EACH NARE 11/23/17 20:15 11/26/17 20:14 (Chlorhexidine 2% Cloth) 3 pack INDUSTRIAL REAL ESTATE AGENT PRN TOPICAL 11/23/17 20:15 11/26/17 20:14 (Coreg) 6.25 mg Q12HR PO 11/24/17 09:00 11/26/17 09:41 (Mycostatin Powder) 1 applic Q12HR TOPICAL 11/24/17 12:00 11/26/17 09:42 (Eliquis) 5 mg BID PO 11/25/17 21:00 11/26/17 09:41 Amiodarone HCl 450 mg/Sodium Chloride 250 ml @ 33.33 mls/ hr Q7H31M PRN IV 11/25/17 13:30 Vital Signs / I&O Vital Signs Date Time Temp Pulse Resp B/P (MAP) Pulse Ox O2 Delivery O2 Flow Rate FiO2 11/26/17 08:00 98.3 97 20 139/71 (93) 96 11/26/17 08:00 96 11/26/17 04:00 98.2 84 20 137/65 (89) 94 11/26/17 03:47 83 11/26/17 00:00 98.1 84 20 134/72 (92) 94 11/25/17 23:41 99 11/25/17 22:05 97.9 82 18 118/74 (89) 96 11/25/17 20:00 98.7 81 20 91/53 (66) 96 11/25/17 20:00 74 11/25/17 16:00 97.8 84 18 121/76 (91) 99 11/25/17 15:58 88 11/25/17 15:04 91 121/78 11/25/17 13:37 97.8 80 18 108/77 (87) 99 11/25/17 12:21 77 11/25/17 12:00 97.9 64 18 103/60 (74) 97 I/O 11/25/17 11/25/17 11/25/17 11/26/17 11/26/17 11/26/17 07:00 15:00 23:00 07:00 15:00 23:00 Intake Total 1000 ml Output Total 250 ml 300 ml Balance -250 ml -300 ml 1000 ml IV Total 1000 ml Output Urine Total 250 ml 300 ml # Voids 1 3 # Bowel Movements 0 Physical Exam GENERAL: Well developed, well nourished. No acute distress. HEENT: Jugular venous pressure is normal. CHEST: Lungs clear to auscultation anteriorly. CARDIAC: Irregular rate and rhythm without S3, S4, or murmur. ABDOMEN: Soft, nontender, no hepatosplenomegaly. Bowel sounds present. EXTREMITIES: No clubbing, cyanosis, or edema. Assessment and Plan Problem List: (1) Paroxysmal atrial fibrillation ICD Codes: I48.0 - Paroxysmal atrial fibrillation Status: Acute Plan: Remains in atrial fib, HR's mostly controlled, occasional salvoes of increased HR. Patient remains asymptomatic REC can change back to oral Amiodarone 400 mg daily continue carvedilol continue apixaban if OK from neurology standpoint (2) Cardiomyopathy ICD Codes: I42.9 - Cardiomyopathy, unspecified Status: Chronic Plan: Echo this admission reviewed, agree EF 40-45% with mildly dilated LV and global hypokinesis. Suspect non-ischemic cardiomyopathy. No acute CHF. REC continue carvedilol and enalapril Code Status full code Discussed Condition With patient and family Problem Qualifiers (1) Cardiomyopathy: Qualified Codes: I42.9 - Cardiomyopathy, unspecified Charles Urbina MD Nov 26, 2017 11:38
[2017-11-26] MEDS: CARVEDILOL 12.5 MG TAB PO SCH (22:02)
[2017-11-27] VITALS (7 sets, daily range): BP systolic 114–138; BP diastolic 61–84; PULSE 74–89; RESP 17–20; TEMP 97.7–99.4; O2SAT 92–98
[2017-11-27] MEDS: CHLORHEXIDINE GLUCONATE 2 % 1 PACK (2 CLOTHS) TOP SCH (03:02)
[2017-11-27] MEDS: ARTIFICIAL TEARS OPTH SOLN 15 ML BTL EACH EYE SCH ×4 (04:15→20:37)
[2017-11-27] MEDS: INSULIN ASPART SUPPLEMENTAL SCALE SQ SCH ×6 (04:15→22:50)
[2017-11-27] MEDS: DOCUSATE SODIUM 50 MG/SENNA 8.6 MG TAB PO SCH ×2 (09:00→20:36)
[2017-11-27] MEDS: SODIUM CHLORIDE 0.9% FLUSH 10 ML FLUSH IV FLUSH SCH ×2 (09:00→20:36)
[2017-11-27] MEDS: ENALAPRIL MALEATE 2.5 MG TAB PO SCH ×2 (09:00→20:36)
[2017-11-27] MEDS: CARVEDILOL 12.5 MG TAB PO SCH ×2 (09:27→20:37)
[2017-11-27] MEDS: APIXABAN 5 MG TABLET PO SCH ×2 (09:27→21:00)
[2017-11-27] MEDS: FAMOTIDINE 20 MG/2 ML VIAL IV PUSH SCH ×2 (09:27→20:36)
[2017-11-27] MEDS: NYSTATIN 100,000 U/GM PWD 15 GM BTL TOPICAL SCH ×2 (09:28→20:37)
--- NOTE | 2017-11-27 11:12 | RADRPT ---
EXAM DATE/TIME: 11/27/2017 10:15 [facility] COMPARISON: CT BRAIN W/O CONTRAST, November 19, 2017, 4:59. INDICATIONS : MCA, CVA,taking apixiban RADIATION DOSE: 52.72 CTDIvol (mGy) MEDICAL HISTORY : None SURGICAL HISTORY : None. ENCOUNTER: Subsequent ACUITY: 1 week PAIN SCALE: 0/10 LOCATION: cranial TECHNIQUE: Multiple contiguous axial images were obtained of the head. Using automated exposure control and adj ustment of the mA and/or kV according to patient size, radiation dose was kept as low as reasonably a chievable to obtain optimal diagnostic quality images. DICOM format image data is available electro nically for review and comparison. FINDINGS: CEREBRUM: There is low-density seen throughout the right temporal and portions of the right frontal and parieta l lobes consistent with an evolving middle cerebral artery territory infarct. There are areas of mild increased density seen in the gyri which may represent petechial hemorrhage. A tello area of hemorrh age is not seen. There is 3 mm of right to left midline shift. The basal cisterns are open. The ventr icles are normal for age. No extra-axial fluid collections are seen. POSTERIOR FOSSA: The cerebellum and brainstem are intact. The 4th ventricle is midline. The cerebellopontine angle i s unremarkable. EXTRACRANIAL: The visualized portion of the orbits is intact. There is mucosal disease in the maxillary sinuses joyce aterally worse on the left. SKULL: The calvaria is intact. No evidence of skull fracture. CONCLUSION: Continued evolution of a right middle cerebral artery territory infarct. Collin Hutton MD on November 27, 2017 at 11:08 Board Certified Radiologist. This report was verified electronically.
--- NOTE | 2017-11-27 11:52 | PD.CARD.PN ---
Subjective Subjective Remarks Resting comfortably. Denies CP, palpitations, dizziness, dyspnea. Slept well. Objective Medications Item Value Date Time Carvedilol 12.5 mg 11/26/172099 (Coreg) Q12H/PO 11/27/17926 Apixaban 5 mg 11/25/172099 (Eliquis) BID/PO 11/27/17926 Enalapril Maleate 2.5 mg 11/23/17899 (Vasotec) BID/PO 11/27/17899 Current Medications Medications (Trade) Dose Ordered Sig/Vin Route Start Time Stop Time Status Last Admin (NS Flush) 2 ml UNSCH PRN IV FLUSH 11/17/17 04:30 (NS Flush) 2 ml BID IV FLUSH 11/17/17 09:00 11/26/17 21:00 (Pepcid Inj) 20 mg Q12HR IV PUSH 11/17/17 09:00 11/27/17 09:27 (Zofran Inj) 4 mg Q6H PRN IV PUSH 11/17/17 04:30 (Albuterol Neb) 2.5 mg Q2HR NEB PRN INH 11/17/17 04:30 Miscellaneous Information 1 Q361D XX 11/17/17 04:30 (Chlorhexidine 2% Cloth) Taper DAILY@04 TOP 11/18/17 04:00 11/14/18 03:59 (Chlorhexidine 2% Cloth) 3 pack UNSCH PRN TOP 11/17/17 04:30 (Estefany-Colace) 1 tab BID PO 11/17/17 09:00 11/26/17 22:02 (Milk Of Magnesia Liq) 30 ml Q12H PRN PO 11/17/17 04:30 (Senokot) 17.2 mg Q12H PRN PO 11/17/17 04:30 (Dulcolax Supp) 10 mg DAILY PRN RECTAL 11/17/17 04:30 (Lactulose Liq) 30 ml DAILY PRN PO 11/17/17 04:30 (Trandate Inj) 10 mg Q4H PRN IV PUSH 11/17/17 04:30 (Apresoline Inj) 10 mg Q4H PRN IV PUSH 11/17/17 04:30 (D50w (Vial) Inj) 50 ml UNSCH PRN IV PUSH 11/17/17 04:30 (Glucagon Inj) 1 mg UNSCH PRN OTHER 11/17/17 04:30 (NovoLOG SUPPLEMENTAL SCALE) 1 Q6H SQ 11/17/17 06:00 11/27/17 00:00 (Tylenol Supp) 650 mg Q4H PRN RECTAL 11/17/17 05:30 (Tears Naturale Opth Soln) 1 drop Q6H EACH EYE 11/19/17 17:00 11/27/17 04:15 Sodium Chloride 1,000 ml @ 84 mls/hr [id number] IV 11/21/17 09:45 11/26/17 19:54 (Cordarone) 400 mg DAILY PO 11/23/17 09:00 Future Hold 11/25/17 08:34 (Vasotec) 2.5 mg BID PO 11/23/17 09:00 11/27/17 09:00 (Mycostatin Powder) 1 applic Q12HR TOPICAL 11/24/17 12:00 11/27/17 09:28 (Eliquis) 5 mg BID PO 11/25/17 21:00 11/27/17 09:27 (Coreg) 12.5 mg Q12H PO 11/26/17 21:00 11/27/17 09:27 (Levemir Inj) 7 units HS SQ 11/27/17 21:00 Vital Signs / I&O Vital Signs Date Time Temp Pulse Resp B/P (MAP) Pulse Ox O2 Delivery O2 Flow Rate FiO2 11/27/17 10:40 Nasal Cannula 2.00 11/27/17 08:11 84 11/27/17 08:00 98.1 74 20 121/61 (81) 96 11/27/17 04:00 84 11/27/17 04:00 98.3 78 20 138/83 (101) 97 11/27/17 04:00 Nasal Cannula 2.00 11/27/17 00:00 98.4 80 20 114/73 (87) 97 11/27/17 00:00 82 11/27/17 00:00 Nasal Cannula 2.00 11/26/17 21:06 96 Nasal Cannula 2.00 11/26/17 20:00 97 11/26/17 20:00 98.2 78 18 113/77 (89) 97 11/26/17 20:00 Nasal Cannula 2.00 11/26/17 16:00 84 11/26/17 16:00 98.4 92 20 125/70 (88) 96 11/26/17 12:00 98.1 87 20 119/68 (85) 97 11/26/17 12:00 86 I/O 11/26/17 11/26/17 11/26/17 11/27/17 11/27/17 11/27/17 07:00 15:00 23:00 07:00 15:00 23:00 Intake Total 1000 ml 0 ml 880 ml Output Total 300 ml 400 ml 500 ml Balance -300 ml 1000 ml -400 ml 380 ml Intake Oral 0 ml IV Total 1000 ml 880 ml Output Urine Total 300 ml 400 ml 500 ml # Voids 3 2 5 # Bowel Movements 0 0 0 Physical Exam GENERAL: Well developed, well nourished. No acute distress. HEENT: Jugular venous pressure is normal. CHEST: Lungs clear to auscultation anteriorly. CARDIAC: Irregular rate and rhythm without S3, S4, or murmur. ABDOMEN: Soft, nontender, no hepatosplenomegaly. Bowel sounds present. EXTREMITIES: No clubbing, cyanosis, or edema. Assessment and Plan Problem List: (1) Paroxysmal atrial fibrillation ICD Codes: I48.0 - Paroxysmal atrial fibrillation Status: Acute Plan: Remains in atrial fib, HR's mostly controlled, occasional salvoes of increased HR. Patient remains asymptomatic REC continue carvedilol continue apixaban OK to discharge home from my standpoint (2) Cardiomyopathy ICD Codes: I42.9 - Cardiomyopathy, unspecified Status: Chronic Plan: Echo this admission reviewed, agree EF 40-45% with mildly dilated LV and global hypokinesis. Suspect non-ischemic cardiomyopathy. No acute CHF. REC continue carvedilol and enalapril Code Status full code Discussed Condition With patient and Problem Qualifiers (1) Cardiomyopathy: Qualified Codes: I42.9 - Cardiomyopathy, unspecified Charles Urbina MD Nov 27, 2017 11:52
--- NOTE | 2017-11-27 14:12 | HHI.PR ---
Subjective Remarks Follow-up for right MCA stroke, atrial fibrillation. Patient is more alert today. He talks a few words. Denies any chest pain, shortness of breath, fever or chills. He is still not able to move his left arm or left leg. Objective Vitals Vital Signs Date Time Temp Pulse Resp B/P (MAP) Pulse Ox O2 Delivery O2 Flow Rate FiO2 11/27/17 10:40 Nasal Cannula 2.00 11/27/17 08:11 84 11/27/17 08:00 98.1 74 20 121/61 (81) 96 11/27/17 04:00 84 11/27/17 04:00 98.3 78 20 138/83 (101) 97 11/27/17 04:00 Nasal Cannula 2.00 11/27/17 00:00 98.4 80 20 114/73 (87) 97 11/27/17 00:00 82 11/27/17 00:00 Nasal Cannula 2.00 11/26/17 21:06 96 Nasal Cannula 2.00 11/26/17 20:00 97 11/26/17 20:00 98.2 78 18 113/77 (89) 97 11/26/17 20:00 Nasal Cannula 2.00 11/26/17 16:00 84 11/26/17 16:00 98.4 92 20 125/70 (88) 96 I/O 11/26/17 11/26/17 11/26/17 11/27/17 11/27/17 11/27/17 07:00 15:00 23:00 07:00 15:00 23:00 Intake Total 1000 ml 0 ml 880 ml Output Total 300 ml 400 ml 500 ml Balance -300 ml 1000 ml -400 ml 380 ml Intake Oral 0 ml IV Total 1000 ml 880 ml Output Urine Total 300 ml 400 ml 500 ml # Voids 3 2 5 # Bowel Movements 0 0 0 Result Diagram: 11/24/17 0632 11/24/17 0632 Imaging Last Impressions Abdomen X-Ray 11/21/17 0000 Signed Impressions: Service Date/Time: Tuesday, November 21, 2017 21:18 - CONCLUSION: NG tube tip into the distal stomach Collin Melissa MD Head CT 11/19/17 0000 Signed Impressions: Service Date/Time: Sunday, November 19, 2017 04:59 - CONCLUSION: No appreciable change in significant right MCA territory infarction. Lauryn Garsia MD Thyroid Ultrasound 11/17/17 Signed Impressions: Service Date/Time: November 11:21 - CONCLUSION: Bilateral thyroid nodules. If these lesions have not been previously evaluated, fine-needle aspiration biopsy would be recommended on an outpatient elective basis Collin Melissa MD Cerebral Arteriogram 11/17/17 Signed Impressions: Service Date/Time: November 02:03 - CONCLUSION: Right MCA embolectomy as above. Jayce Watt MD Brain MRI 11/17/17 Signed Impressions: Service Date/Time: November 09:50 - CONCLUSION: 1. Acute infarction involving the right MCA territory which correlates to the finding on the CTA. No mass effect. There are scattered blood products throughout the infarct bed. Keshawn Dickson Jr., MD Neck CTA 11/16/172342 Signed Impressions: Service Date/Time: Thursday, November 16, 2017 23:53 - CONCLUSION: 1. Multinodular thyroid not mentioned above with thyroid enlargement, left greater than right and mild mass effect on the trachea. 2. 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 3. No evidence for hemodynamically significant stenosis of either internal carotid artery. 4. 5. The findings were discussed with Dr. Samaniego at 12: 6. 17 AM on November 17, 2017. Jarvis Dewitt MD Head CTA 11/16/172342 Signed Impressions: Service Date/Time: Thursday, November 16, 2017 23:53 - CONCLUSION: Right MCA occlusion. The findings were discussed with Dr. Samaniego, neurologist sex offender treatment professional at 12:17 AM on November 17, 2017. Jarvis Dewtit MD Objective Remarks GENERAL: Sleepy but wakes up on verbal commands. No acute distress. SKIN: Warm and dry. HEAD: Normocephalic. EYES: No scleral icterus. No injection or drainage. NECK: Supple, trachea midline. No JVD or lymphadenopathy. CARDIOVASCULAR: Irregularly irregular without murmurs, gallops, or rubs. RESPIRATORY: Breath sounds equal bilaterally. No accessory muscle use. GASTROINTESTINAL: Abdomen soft, non-tender, nondistended. MUSCULOSKELETAL: No cyanosis, or edema. Right upper and lower extremity strength is intact. Left upper and lower extremity 0/5. BACK: Nontender without obvious deformity. No CVA tenderness. Procedures PEG placement 11/24/17 Echo to 52,018 Mildly dilated left ventricle. Wall thickness is normal. The left ventricular systolic function is moderately reduced with an estimated ejection fraction in the range of 40-45%. [id number] mitral valve regurgitation. Mitral annular calcification is present. A/P Problem List: (1) Acute right MCA stroke ICD Code: I63.511 - Cerebral infarction due to unspecified occlusion or stenosis of right middle cerebral artery Status: Acute (2) Received intravenous tissue plasminogen activator (tPA) in emergency department ICD Code: Z92.82 - Status post administration of tPA (rtPA) in a different facility within the last 24 hours prior to admission to current facility Status: Acute (3) Atrial fibrillation ICD Code: I48.91 - Unspecified atrial fibrillation (4) Diabetes mellitus ICD Code: E11.9 - Type 2 diabetes mellitus without complications Assessment and Plan 72 yo R hand dominant WM with PMH of obesity, BPH, and limited prior contact with medical care who presented to [facility] [place] [facility] on 11/17/2017 with confusion, aphasia, L hemiparesis. Per patient's his symptoms occurred around 225-0 - 2300 hrs. on 11/16/2017. TPN was administered. CTA brain demonstrated a portion of M1 segment of right MCA. CTA carotid showed no significant stenosis. Patient was subsequently transferred to [facility] in [place] where he underwent embolectomy by interventional radiology. Patient was found to have new onset atrial fibrillation as well as diabetes mellitus. - Right MCA stroke - Discussed with cardiology and neurology on 11/26/2017. - Patient was already started on apixaban 5 mg twice a day on 11/25/2017. - Per discussion with neurology, we obtained CT brain without contrast. CT brain on 11/27/2017 shows no tello hemorrhage. However, it does show some possibility of petechial hemorrhage. - I have contacted neurology for neurology to review the CT head. For now, I will hold Apixaban. - Continue PT/OT. Patient is accepted at [facility], waiting for insurance authorization. - Continue tube feed through PEG tube. - Atrial fibrillation - Patient was on amiodarone drip. Cardiology recommended switching amiodarone drip to amiodarone by mouth. - Continue carvedilol 12.5 mg by mouth every 12 hours for rate control. - Will hold apixaban 5 mg twice a day for now in light of CT head suggestion of petechial hemorrhage (11/27/2017). - Hypertension - Probable nonischemic Cardiomyopathy EF 40-45%. - Continue enalapril 2.5 mg by mouth twice a day. Continue carvedilol. - Diabetes mellitus - Multinodular goiter - Hemoglobin A1c was 9.6. - Patient is currently on sliding scale insulin. Goal blood glucose 140 - 180. - CTA neck showed multinodular thyroid, left greater than right with mild mass effect on the trachea. Thyroid ultrasound -> bilateral nodules. - Thyroid US results can be followed up in the outpatient setting by an Marketing Project Lead. Full code. Apixaban (on hold today). Pretty Zarate DO Nov 27, 2017 14:12
[2017-11-27] MEDS: SODIUM CHLOR 0.9% 1000 ML INJ 1,000 ML IV SCH (20:37)
[2017-11-27] MEDS ORDERED: INSULIN DETEMIR 100 UNITS/ML VIAL SQ SCH (21:00)
[2017-11-28] VITALS (8 sets, daily range): BP systolic 106–130; BP diastolic 60–77; PULSE 66–111; RESP 17–20; TEMP 98.5–98.7; O2SAT 92–98
[2017-11-28] MEDS: CHLORHEXIDINE GLUCONATE 2 % 1 PACK (2 CLOTHS) TOP SCH (04:00)
[2017-11-28] MEDS: INSULIN ASPART SUPPLEMENTAL SCALE SQ SCH ×2 (05:05→12:15)
[2017-11-28] MEDS: ARTIFICIAL TEARS OPTH SOLN 15 ML BTL EACH EYE SCH ×2 (05:06→12:16)
[2017-11-28] MEDS: SODIUM CHLOR 0.9% 1000 ML INJ 1,000 ML IV SCH (08:16)
[2017-11-28] MEDS: DOCUSATE SODIUM 50 MG/SENNA 8.6 MG TAB PO SCH (09:00)
[2017-11-28] MEDS: SODIUM CHLORIDE 0.9% FLUSH 10 ML FLUSH IV FLUSH SCH (09:00)
[2017-11-28] MEDS: ENALAPRIL MALEATE 2.5 MG TAB PO SCH (09:48)
[2017-11-28] MEDS: CARVEDILOL 12.5 MG TAB PO SCH (09:48)
[2017-11-28] MEDS: APIXABAN 5 MG TABLET PO SCH (09:49)
[2017-11-28] MEDS: FAMOTIDINE 20 MG/2 ML VIAL IV PUSH SCH (09:49)
[2017-11-28] MEDS: NYSTATIN 100,000 U/GM PWD 15 GM BTL TOPICAL SCH (09:49)
--- NOTE | 2017-11-28 11:58 | RADRPT ---
EXAM DATE/TIME: 11/28/2017 11:39 [place] COMPARISON: No previous studies available for comparison. INDICATIONS : Short of breath. MEDICAL HISTORY : None. SURGICAL HISTORY : Intracranial throbectomy. ENCOUNTER: Subsequent ACUITY: 2 weeks PAIN SCORE: 0/10 LOCATION: Bilateral chest FINDINGS: Portable AP view of the chest demonstrates a normal-sized cardiac silhouette. EKG lines overlie the p atient and patient is rotated. No pleural effusion, airspace consolidation, or pneumothorax is identi fied. The bones and soft tissues demonstrate no acute finding. CONCLUSION: Underinflated and rotated examination of the chest demonstrates no definite acute abnormality. Collin Delong MD on November 28, 2017 at 11:56 Board Certified Radiologist. This report was verified electronically.
[2017-11-28 13:08] LABS: AUTOMATED NEUTROPHIL # 14.6 TH/MM3 (1.8-7.7); BASOPHIL # 0.1 TH/MM3 (0-0.2); BASOPHIL % 0.8 % (0.0-2.0); EOSINOPHIL # 0.4 TH/MM3 (0-0.4); EOSINOPHIL % 2.3 % (0.0-4.0); HEMATOCRIT 37.5 % (39.0-51.0); HEMOGLOBIN 12.8 GM/DL (13.0-17.0); LYMPH % 10.7 % (9.0-44.0); MEAN CELL VOLUME 93.5 FL (80.0-100.0); MEAN CORPUSCULAR HEMOGLOBIN 31.8 PG (27.0-34.0); MEAN PLATELET VOLUME 9.8 FL (7.0-11.0); MONO % 9.6 % (0.0-8.0); MONOCYTE # 1.8 TH/MM3 (0-0.9); NEUT % 76.6 % (16.0-70.0); PLATELET COUNT 257 TH/MM3 (150-450); RED BLOOD COUNT 4.01 MIL/MM3 (4.50-5.90); RED CELL DISTRIBUTION WIDTH 12.6 % (11.6-17.2)
[2017-11-28 13:28] LABS: BICARBONATE 29.9 MEQ/L (21.0-32.0); CALCIUM 8.8 MG/DL (8.5-10.1); CREATININE 0.87 MG/DL (0.60-1.30)
[2017-11-28 13:39] LABS: LYMPHOCYTES 10 % (9-44); MONOCYTES 5 % (0-8); NEUTROPHIL # MANUAL DIFF 15.6 TH/MM3 (1.8-7.7); POLYS (SEG NEUTROPHILS) 82 % (16-70)
[2017-11-28 13:40] LABS: TOXIC VACUOLATION PRESENT (NONE SEEN)
[2017-11-28] MEDS ORDERED: ENAL2.5T PO (15:09)
[2017-11-28] MEDS ORDERED: APIX5TAB PO (15:09)
[2017-11-28] MEDS ORDERED: CARV12.5 PO (15:09)
[2017-11-28] MEDS ORDERED: NOVOLOGP2 SQ (15:09)
[2017-11-28] MEDS ORDERED: LEVEMIR SQ (15:09)
--- NOTE | 2017-11-28 15:09 | HHI.DS ---
Discharge Summary Admission Date Nov 17, 2017 at 12:37 am Admitting Diagnosis (R) MCA CVA (1) Acute right MCA stroke ICD Code: I63.511 - Cerebral infarction due to unspecified occlusion or stenosis of right middle cerebral artery Status: Acute (2) Received intravenous tissue plasminogen activator (tPA) in emergency department ICD Code: Z92.82 - Status post administration of tPA (rtPA) in a different facility within the last 24 hours prior to admission to current facility Status: Acute (3) Atrial fibrillation ICD Code: I48.91 - Unspecified atrial fibrillation (4) Diabetes mellitus ICD Code: E11.9 - Type 2 diabetes mellitus without complications Procedures PEG placement 11/24/17 Echo to 52,018 Mildly dilated left ventricle. Wall thickness is normal. The left ventricular systolic function is moderately reduced with an estimated ejection fraction in the range of 40-45%. Kykz-um-jwuygnch mitral valve regurgitation. Mitral annular calcification is present. Brief History - From Admission 72 yo R hand dominant WM with PMH of obesity, BPH, and limited prior contact with medical care who [place] [facility] with confusion, aphasia, L hemiparesis. His estimates that symptoms occurred at 22:50-23:00 on . She states he was ambulating around the house and was "wandering" and "seemed confused". His contacted patient's brother who was staying in the house across the street and then he arrived and suggested she call [facility]. He had no noted seizure activity. He is not on anticoagulants or antiplatelet therapy. BP on arrival was 138/78. CT brain demonstrated atrophy and remote left parietal infarct. There was no acute infarct/hemorrhage/mass. Patient initially refused TPA however encouraged him to proceed with it. He seemed confused and there was question of whether he was capacitated for medical decision making so ultimately consented to TPA which was administered.. CTA brain demonstrated occlusion of M1 segment of R MCA. CTA carotids showed no significant stenosis. He was transferred from [facility] to [facility] where he underwent embolectomy by Dr. Watt. CBC/BMP: 11/28/17 1248 11/28/17 1248 Significant Findings Laboratory Tests Test 11/28/17 12:48 White Blood Count 19.0 TH/MM3 (4.0-11.0) Red Blood Count 4.01 MIL/MM3 (4.50-5.90) Hemoglobin 12.8 GM/DL (13.0-17.0) Hematocrit 37.5 % (39.0-51.0) Neutrophils (%) (Auto) 76.6 % (16.0-70.0) Monocytes (%) (Auto) 9.6 % (0.0-8.0) Neutrophils # (Auto) 14.6 TH/MM3 (1.8-7.7) Monocytes # (Auto) 1.8 TH/MM3 (0-0.9) Neutrophils % (Manual) 82 % (16-70) Neutrophils # (Manual) 15.6 TH/MM3 (1.8-7.7) Toxic Vacuolation PRESENT (NONE SEEN) Random Glucose 288 MG/DL (74-106) Sodium Level 135 MEQ/L (136-145) Estimat Glomerular Filtration Rate 86 ML/MIN (>89) PE at Discharge GENERAL: Sleepy but wakes up on verbal commands. No acute distress. SKIN: Warm and dry. HEAD: Normocephalic. EYES: No scleral icterus. No injection or drainage. NECK: Supple, trachea midline. No JVD or lymphadenopathy. CARDIOVASCULAR: Irregularly irregular without murmurs, gallops, or rubs. RESPIRATORY: Breath sounds equal bilaterally. No accessory muscle use. GASTROINTESTINAL: Abdomen soft, non-tender, nondistended. MUSCULOSKELETAL: No cyanosis, or edema. Right upper and lower extremity strength is intact. Left upper and lower extremity 0/5. BACK: Nontender without obvious deformity. No CVA tenderness. Pt Condition on Discharge: Good Discharge Disposition: Rehab Inpatient Discharge Instructions DIET: Follow Instructions for: On Tube Feeding Speech Therapy-Diet Recommends: Other Activities you can perform: Regular-No Restrictions Pretty Zarate DO Nov 28, 2017 3:09 pm
[2017-11-28 16:46] LABS: BACTERIA, URINE FEW /hpf; BILIRUBIN, URINE NEG (NEG); BLOOD, URINE NEG (NEG); GLUCOSE,URINE 70 mg/dL (NEG); KETONE, URINE NEG (NEG); MUCUS URINE FEW /lpf (OCC); NITRITE,URINE NEG (NEG); SQUAMOUS EPITHELIAL CELL URINE <1 /hpf (0-5); URINE COLOR YELLOW (YELLW/STRAW); URINE LEUKOCYTE ESTERASE LARGE (NEG)
--- NOTE | 2017-11-28 18:35 | HHI.PR ---
Review/Management Diagnosis right MCA stroke s/p iv TPA and interventional thrombectomy new onset afib Plan continue current care Unable to anticoagulate due to component of subarachnoid hemorrhage Diagnosis/Plan: Daily Summary 11/18 ct brain and mri brain seen left hemiparesis remains same awakens with stim and follows commands as yesterday spoke with RN no blood thinners for now watch for more cerebral edema and mass effect dr Eduardo covering weekend plan foor ct brain f/u tomorrow 11/22 family at bedside seems stable, alert and anxious to swallow left hemiparesis is severe but has motor about 1-2/5 leg rehab care if remains stable in a week or so would start anticoagulation, will need repeat ct brain before to be sure stable 11/28 seen before rehab stable neuro, left hemiparesis persist i have been in touch with treating physicians and agree with eliquis despite of risk Subjective Subjective Comments No acute events reported No headache No chest pain No dyspnea Allergies Allergies Coded Allergies No Known Allergies (Unverified11/17/17) Exam I&O / VS 11/28/17 11/28/17 11/29/17 15:00 23:00 07:00 Intake Total 201 ml Balance 201 ml IV Total 201 ml Vital Signs Date Time Temp Pulse Resp B/P (MAP) Pulse Ox O2 Delivery O2 Flow Rate FiO2 11/28/17 12:06 98.7 88 20 106/67 (80) 98 11/28/17 12:04 79 11/28/17 10:35 96 Nasal Cannula 2.00 11/28/17 08:18 96 Nasal Cannula 2.00 11/28/17 08:12 111 11/28/17 08:06 98.7 94 20 127/72 (90) 96 11/28/17 04:00 98.6 82 17 122/77 (92) 98 11/28/17 04:00 96 11/28/17 04:00 Nasal Cannula 5.00 11/28/17 01:09 Nasal Cannula 5.00 11/28/17 00:07 98.5 66 17 130/60 (83) 92 11/28/17 00:00 89 11/27/17 20:00 89 11/27/17 20:00 Nasal Cannula 2.00 11/27/17 20:00 99.4 85 17 121/77 (92) 92 Objective Micro and Labs Laboratory Tests Test 11/28/17 00:00 11/28/17 12:48 Urine Color YELLOW Urine Turbidity HAZY Urine pH 7.0 Urine Specific [place] 1.016 Urine Protein NEG Urine Glucose (UA) 70 Urine Ketones NEG Urine Occult Blood NEG Urine Nitrite NEG Urine Bilirubin NEG Urine Urobilinogen 4.0 Urine Leukocyte Esterase LARGE Urine RBC 2 Urine WBC 64 Urine Squamous Epithelial Cells <1 Urine Bacteria FEW Urine Mucus FEW Microscopic Urinalysis Comment CULTURE INDICATED White Blood Count 19.0 Red Blood Count 4.01 Hemoglobin 12.8 Hematocrit 37.5 Mean Corpuscular Volume 93.5 Mean Corpuscular Hemoglobin 31.8 Mean Corpuscular Hemoglobin Concent 34.0 Red Cell Distribution Width 12.6 Platelet Count 257 Mean Platelet Volume 9.8 Neutrophils (%) (Auto) 76.6 Lymphocytes (%) (Auto) 10.7 Monocytes (%) (Auto) 9.6 Eosinophils (%) (Auto) 2.3 Basophils (%) (Auto) 0.8 Neutrophils # (Auto) 14.6 Lymphocytes # (Auto) 2.0 Monocytes # (Auto) 1.8 Eosinophils # (Auto) 0.4 Basophils # (Auto) 0.1 CBC Comment AUTO DIFF Differential Total Cells Counted 100 Neutrophils % (Manual) 82 Lymphocytes % 10 Monocytes % 5 Eosinophils % 3 Neutrophils # (Manual) 15.6 Differential Comment FINAL DIFF MANUAL Toxic Vacuolation PRESENT Platelet Estimate NORMAL Platelet Morphology Comment NORMAL Red Cell Morphology Comment NORMAL Blood Urea Nitrogen 17 Creatinine 0.87 Random Glucose 288 Calcium Level 8.8 Sodium Level 135 Potassium Level 4.5 Chloride Level 99 Carbon Dioxide Level 29.9 Anion Gap 6 Estimat Glomerular Filtration Rate 86 Date/Time Source Procedure Growth Status 11/28/17 00:00 Urine Clean Catch Urine Culture Pending Received Bri Samaniego MD Nov 28, 2017 18:35
--- NOTE | 2017-11-30 08:36 | MB ---
cc: Charles Urbina MD DATE OF CONSULT: REASON FOR CONSULTATION: Atrial fibrillation. HISTORY OF PRESENT ILLNESS: The patient is very somnolent. History is currently difficult to elicit from him. He is a 72-year-old white male with a history of recent right middle cerebral artery CVA, benign prostatic hypertrophy, recently diagnosed mild cardiomyopathy and paroxysmal atrial fibrillation, who was transferred to [facility] for further neurological therapy and rehabilitation. At this time, he is somnolent. He denies palpitations, dizziness, chest pain, shortness of breath, pedal edema. PAST MEDICAL HISTORY: 1. Benign prostatic hypertrophy. 2. Acute right middle cerebral artery CVA 11/17/2017 status post embolectomy. 3. Paroxysmal atrial fibrillation diagnosed last admission. 4. Mild, probably nonischemic, cardiomyopathy with ejection fraction 40% to 45% by echo 11/17/2017. CURRENT CARDIAC MEDICATIONS: Carvedilol 12.5 mg p.o. b.i.d., atorvastatin 10 mg p.o. q.h.s., amiodarone 400 mg p.o. daily, enalapril 2.5 mg p.o. b.i.d., apixaban 5 mg p.o. b.i.d. ALLERGIES: NO KNOWN DRUG ALLERGIES. FAMILY HISTORY: Noncontributory. SOCIAL HISTORY: The patient denies any history of alcohol or tobacco abuse. REVIEW OF SYSTEMS: As in the history of present illness, otherwise currently difficult to obtain. PHYSICAL EXAMINATION: His blood pressure 113/66 with a pulse of 88, respirations 20. GENERAL: He is a well-developed, well-nourished white male. HEENT: Jugular venous pressure is normal. Carotid pulses are 2+ bilaterally and without bruits. CHEST: Reveals clear lung eldridge anteriorly. CARDIAC: He has an irregular, irregular rhythm without S3 or murmur. ABDOMEN: He has a soft nontender abdomen. Bowel sounds are present. There is no definite hepatosplenomegaly. EXTREMITIES: Reveals no clubbing, cyanosis or edema. EKG shows atrial fibrillation, nonspecific T-wave abnormalities. LABORATORY DATA: Includes WBC 15.0, hemoglobin 13.4, platelets 289. Potassium 4.4, BUN 19, creatinine 0.97. AST 43, ALT 97. Chest x-ray shows no acute disease. IMPRESSION: Overall stable cardiac status in this 72-year-old white male with a history of recent cerebrovascular accident, paroxysmal atrial fibrillation, mild, probably nonischemic, cardiomyopathy. The patient remains in atrial fibrillation with controlled heart rates. His thromboembolic risk is high, and he is maintained on apixaban for anticoagulation therapy. There were some difficulties encountered last admission with heart rate control, eventually achieved with beta jud and amiodarone therapy. There is no evidence for congestive heart failure. RECOMMENDATIONS: 1. Would continue his current cardiac medications. As amiodarone did help with heart rate control and initially maintained sinus rhythm, would continue this medication, although at reduced dosing 200 mg daily. He will need his liver function tests followed up in a few months. 2. Will follow up as needed. MD YOSELYN Thomas/JACKELINE , 07:54 AM , 08:36 AM AYDEN
== END 2017-11-28 16:48 | DRG 23 ==
LOC: PHED 23:32 → PHEDA 11-17 00:37 → N03A 11-17 03:27 → N05A 11-21 20:20 → N04B 11-25 13:14
PROVIDERS: ADMIT Hospitalist; ATTEND Hospitalist
PROC: 3E03317 Introduction of Other Thrombolytic into Peripheral Vein, Percutaneous Approach (ICD-10-PCS; 2017-11-16)
PROC: 03CG3ZZ Extirpation of Matter from Intracranial Artery, Percutaneous Approach (ICD-10-PCS; principal; 2017-11-17)
PROC: 0T9B70Z Drainage of Bladder with Drainage Device, Via Natural or Artificial Opening (ICD-10-PCS; 2017-11-17)
PROC: 3E0F7GC Introduction of Other Therapeutic Substance into Respiratory Tract, Via Natural or Artificial Opening (ICD-10-PCS; 2017-11-17)
PROC: 0DH63UZ Insertion of Feeding Device into Stomach, Percutaneous Approach (ICD-10-PCS; 2017-11-24)
DX: I63.411 Cerebral infarction due to embolism of right middle cerebral artery (principal); I60.9 Nontraumatic subarachnoid hemorrhage, unspecified; I42.9 Cardiomyopathy, unspecified; E11.65 Type 2 diabetes mellitus with hyperglycemia; I48.1 Persistent atrial fibrillation; R13.12 Dysphagia, oropharyngeal phase; G81.94 Hemiplegia, unspecified affecting left nondominant side; I48.0 Paroxysmal atrial fibrillation; E87.1 Hypo-osmolality and hyponatremia; R47.01 Aphasia; I10 Essential (primary) hypertension; R29.810 Facial weakness; N40.0 Benign prostatic hyperplasia without lower urinary tract symptoms; E66.9 Obesity, unspecified; E04.2 Nontoxic multinodular goiter; D72.829 Elevated white blood cell count, unspecified; Z68.31 Body mass index [BMI] 31.0-31.9, adult; I34.0 Nonrheumatic mitral (valve) insufficiency
CPT/HCPCS: 61645; 70450; 70496; 70498; 70551; 71045; 74018; 76536; 76937; 80048; 80061; 80307; 81001; 82550; 82948; 83036; 83735; 84439; 84443; 84481; 84484; 85007; 85025; 85027; 85384; 85610; 85730; 86850; 86900; 86901; 87077; 87086; 87186; 87641; 93005; 93306; 96365; 96375; 99152; 99153; C1760; C1769; C1887; J0282; J0690; J1644; J1815; J1940; J2250; J2370; J2997; J3010; J3480; J7030; J7050; J7060; J7120; Q9967